=== PATIENT | female | born 1985 | race Caucasian/White ===

== ENCOUNTER → 2023-02-13 | Outpatient (CLI) | payer OTHER ==
--- NOTE | 2023-02-20 15:42 | Diagnostic Imaging Report ---
INDICATION: anatomy survey. TECHNIQUE: Multiple real-time grayscale images were obtained over the gravid uterus. COMPARISON: None FINDINGS: The cervix measures approximately 7 cm in length. Twin gestation is present and there is an intervening membrane. LELA is normal at 18.3 cm. Anterior placenta with no previa. Fetus A: Variable presentation. Heart rate is 152 bpm. anatomy survey was performed and the following structures are normal: Four-chamber heart, stomach, kidneys, umbilical cord insertion, urinary bladder, cerebral ventricle, lips/nose, spine, right ventricular outflow tract, bilateral lower extremities, left ventricular outflow tract. Fetus B: Breech presentation. Heart rate is 152 bpm. anatomy survey was performed and the following structures are normal: Cerebral ventricles, cerebellum, cisterna magna, lips/nose, kidneys, umbilical cord insertion, stomach, four-chamber heart, right ventricular outflow tract, profile. The spine was suboptimally evaluated due to positioning. Biometrical measurements for baby A: Biparietal 5.21 cm, age 21 weeks 6 days. Head circumference 19.10 cm, age 21 weeks 3 days. Abdominal circumference 15.92 cm, age 21 weeks 1 days. Femur length 3.45 cm, age 21 weeks 0 days. Sonographic estimate age: 21 weeks 3 days. Sonographic estimated date of delivery: 06/23/2023. Estimated Weight: 394 gm (+/- 58 gm). LMP percentile: 31%. heart rate: 152 beats per minute. number: 1 of 2. IMPRESSION: 1. Live twin gestation. 2. The majority of the anatomy was seen and normal. The spine of fetus B was not well seen due to positioning. Dictated by: Dictated on workstation # [id number]
== END ==
LOC: RAD 13:09
PROVIDERS: ATTEND Obstetrics & Gynecology
DX: Z34.02 Encounter for supervision of normal first pregnancy, second trimester (principal); Z3A.21 21 weeks gestation of pregnancy
CPT/HCPCS: 76805; 76810

== ENCOUNTER → 2023-05-04 | Outpatient (CLI) | payer OTHER ==
[2023-05-04 12:12] LABS: URINE CREATININE FOR RATIO 29 MG/DL (30-125); URINE PROTEIN FOR RATIO ONLY < 6 MG/DL (6-12)
== END ==
LOC: LABNPT 11:50
PROVIDERS: ATTEND Obstetrics & Gynecology
DX: O13.9 Gestational [pregnancy-induced] hypertension without significant proteinuria, unspecified trimester (principal); Z3A.00 Weeks of gestation of pregnancy not specified
CPT/HCPCS: 82570; 84156

== ENCOUNTER 2023-05-18 09:59 | Outpatient (CLI) | payer OTHER ==
[2023-05-18 09:58] VITALS: BP 137/86
[2023-05-18 10:13] VITALS: BP 132/85
[2023-05-18 10:26] LABS: BASOPHILS % (AUTO) 0 % (0-10); EOSINOPHILS % (AUTO) 0 % (0-10); HEMATOCRIT 39 % (35-52); HEMOGLOBIN 13.8 g/dL (11.5-16.0); LYMPHOCYTES # (AUTO) 1.9 10^3/uL (1.0-4.0); LYMPHOCYTES % (AUTO) 18 % (12-44); MEAN CORPUSCULAR HEMOGLOBIN 32 pg (25-34); MEAN CORPUSCULAR HGB CONC 35 g/dL (32-36); MEAN CORPUSCULAR VOLUME 89 fL (80-99); MONOCYTES # (AUTO) 0.8 10^3/uL (0.0-1.0); MONOCYTES % (AUTO) 7 % (0-12); NEUTROPHILS % (AUTO) 74 % (42-75); PLATELET COUNT 227 10^3/uL (130-400); WHITE BLOOD COUNT 10.8 10^3/uL (4.3-11.0)
[2023-05-18] MEDS ORDERED: BETAMETHASONE Acetate/Na Phosphate 6 MG/ML INJ IM SCH (10:30)
[2023-05-18 10:44] LABS: ALBUMIN 3.1 GM/DL (3.2-4.5); BILIRUBIN,TOTAL 0.9 MG/DL (0.1-1.0); CALCIUM 8.8 MG/DL (8.5-10.1); CREATININE SERUM 0.63 MG/DL (0.60-1.30); POTASSIUM 3.7 MMOL/L (3.6-5.0); TOTAL PROTEIN 6.1 GM/DL (6.4-8.2); URIC ACID 6.3 MG/DL (2.6-7.2)
--- NOTE | 2023-05-22 08:05 | Physician Query-Final Dx ---
DAO,05/22/23 0804: Clinic Account Progress/Dx Physician Query: Please give diagnosis Please include # weeks gestation Date of Service May 18, 2023 at 09:59 MARIA ESTHER NOLASCO DO 05/22/23 0810: Clinic Account Progress/Dx DIAGNOSIS: Diagnosis 35 week twin PING DAO,SepMay 22, 2023 08:04 MARIA ESTHER NOLASCO DO May 22, 2023 08:10
== END 2023-05-18 10:20 | disposition home or self-care (01) ==
LOC: WSo 09:59 → LDRP 09:59 → WSo 10:20
PROVIDERS: ATTEND Obstetrics & Gynecology
DX: O16.3 Unspecified maternal hypertension, third trimester (principal); Z3A.15 15 weeks gestation of pregnancy
CPT/HCPCS: 80053; 82570; 84156; 84550; 85025; 96372; G0463; 36415; 99211

== ENCOUNTER 2023-05-19 11:35 | Outpatient (CLI) | payer OTHER ==
[2023-05-20] MEDS ORDERED: BETAMETHASONE Acetate/Na Phosphate 6 MG/ML INJ IM SCH (11:25)
== END 2023-05-19 12:25 | disposition home or self-care (01) ==
LOC: WSo 11:35
PROVIDERS: ATTEND Family Medicine
DX: Z36.84 Encounter for antenatal screening for fetal lung maturity (principal)
CPT/HCPCS: 96372

== ENCOUNTER → 2023-05-22 | Outpatient (CLI) | payer OTHER | LOC: LABNPT 13:45 | PROVIDERS: ATTEND Obstetrics & Gynecology | DX: O13.9 Gestational [pregnancy-induced] hypertension without significant proteinuria, unspecified trimester (principal); Z3A.00 Weeks of gestation of pregnancy not specified | CPT/HCPCS: 82570; 84156 ==

== ENCOUNTER 2023-05-28 05:29 | Outpatient (CLI) | payer OTHER ==
[~2023-05-28] VITALS: Ht 165.1 cm; Wt 93.2 kg
[2023-05-28] MEDS ORDERED: FERR-84 PO (10:04)
[2023-05-28] MEDS ORDERED: PNV-9 PO (10:04)
== END 2023-05-28 10:38 | disposition home or self-care (01) ==
LOC: PREOP 05:29
PROVIDERS: ATTEND Obstetrics & Gynecology
DX: Z01.818 Encounter for other preprocedural examination (principal)

== ENCOUNTER → 2023-06-01 | Outpatient (CLI) | payer OTHER ==
[~2023-06-01] MED LIST: ACHD5005 PO; AMLO-251 PO; DOCU100C37 PO; DOXA4TAB2 PO; FERR-84 PO; IBUP-844 PO; LABE200T10 PO; METO200T48 PO; MTP100TCR PO; PNV-9 PO
== END ==
LOC: LABNPT 09:48
PROVIDERS: ATTEND Obstetrics & Gynecology
DX: O13.9 Gestational [pregnancy-induced] hypertension without significant proteinuria, unspecified trimester (principal); Z3A.00 Weeks of gestation of pregnancy not specified
CPT/HCPCS: 82570; 84156

== ENCOUNTER 2023-06-04 10:35 | Inpatient (IN) | payer OTHER ==
[2023-06-04] VITALS (14 sets, daily range): BP systolic 124–184; BP diastolic 62–108
[~2023-06-04] VITALS: Ht 165 cm; Wt 88.7 kg
[~2023-06-04 10:35] MED LIST changes: -ACHD5005 PO; -AMLO-251 PO; -DOCU100C37 PO; -DOXA4TAB2 PO; -IBUP-844 PO; -LABE200T10 PO; -METO200T48 PO; -MTP100TCR PO
--- OUTSIDE RECORDS SUMMARY | 2023-06-04 10:40 | XMS REPORT | CCD ---
Author Author Danielle Arana APRN Organization JOSEPH Luis DO [facility] Address [address] [place] [address] Phone Care Team Providers Care Chief Wheelage Clerk Name Role Phone Joseph Benjamin D.O. PP Unavail able CCM Unavailable Summary Purpose Interface Exchange Insurance Providers Payer name Policy type / Coverage type Covered republican ID Effective Begin Date Effective End Date CIG[employer] Commercial Insurance [id number] Unk nown Family history Grandmother Diagnosis Age At Onset Uterine Cancer Unknown Mother Diagnosis Age At Onset Diabetes mellitus Type 2 Unknown Hypertension Unknown Social History Social History Element Codes Description Effec tive Dates Marital status Unknown Single 01/30/2012 Employment Unknown Currently employed [address]: 414938011 Has never s moked or chewed tobacco 01/30/2012 Allergies, Adverse Reactions, Alerts Substance Reaction Codes Entered Date Inactivated Date Status * NO KNOWN FOOD ALLERGIES Unknown 10/09/2019 No Inactive Date Active * NO KNOWN DRUG ALLERGIES Unknown 01/30/2012 No Inactive Date Active * NO KNOWN ENVIRONMENTAL ALLERGIES Unknown 10/09/2019 No Inactive Date Active Problems Condition Codes Effective Dates Condition St atus Encounter for general adult medical examination without abnormal findings ICD-10: Z00.00 ICD-9: V70.0 10/26/2014 Active Primary dysmenorrhea ICD-10: N94.4 ICD-9: 625.3 12/18/2012 Active Encounter for gynecological examination (general) (routine) without abnormal findings ICD-10: Z01.419 ICD-9: V72.31 10/17/2017 Active Encounter for removal of sutures ICD-10: Z48.02 ICD-9: V58.32 05/07/2017 Active Melanocytic nevi of trunk ICD-10: D22.5 ICD-9: 216.5 10/16/2016 Active ROUTINE GYNE EXAM ICD-9: V72.31 10/26/2014 Active ROUTINE MEDICAL EXAM ICD-9: V70.0 10/26/2014 Active Dysmenorrhea ICD-9: 625.3 12/18/2012 Active Medications Medication Codes Instructions Start Date Stop Date Status Fill Instructions Sprintec (28) 0.25 mg-35 mcg tablet RxNorm: 837699 Take 1 tablet by mouth once daily 2 11/27/19 22 Active multivitamin tablet RxNorm: 1 Tablet(s) Oral QD 1 No Stop Date Active Sprintec (28) 0.25 mg-35 mcg tablet RxNorm: 813223 Take 1 tablet by mouth once daily 1 10/11/19 21 Inactive Sprintec (28) 0.25 mg-35 mcg tablet RxNorm: 341549 Take 1 tablet by mouth once daily 1 10/10/19 21 Inactive Sprintec (28) 0.25 mg-35 mcg tablet RxNorm: 090000 TAKE ONE TABLET BY MOUTH ONCE DAILY 0 10/21/19 20 Inactive Sprintec (28) 0.25 mg-35 mcg tablet RxNorm: 706716 TAKE ONE TABLET BY MOUTH ONCE DAILY 9 10/08/19 20 Inactive Sprintec (28) 0.25 mg-35 mcg tablet RxNorm: 836028 1 Tablet(s) PO QD 8 10/15/19 19 Inactive Sprintec (28) 0.25 mg-35 mcg tablet RxNorm: 098706 1 Tablet(s) PO QD 7 10/16/19 18 Inactive Sprintec (28) 0.25 mg-35 mcg tablet RxNorm: 146589 1 Tablet(s) PO QD 6 10/30/19 17 Inactive Sprintec (28) 0.25 mg-35 mcg tablet RxNorm: 595900 1 Tablet(s) PO QD 5 10/13/19 16 Inactive Sprintec (28) 0.25 mg-35 mcg tablet RxNorm: 083943 1 Tablet(s) PO QD 4 10/25/19 15 Inactive Sprintec (28) 0.25 mg-35 mcg tablet RxNorm: 221384 1 Tablet(s) PO QD 4 12/04/19 14 Inactive Sprintec (28) 0.25 mg-35 mcg tablet RxNorm: 226002 1 Tablet(s) PO QD 3 11/19/19 14 Inactive Sprintec (28) 0.25 mg-35 mcg tablet RxNorm: 677451 1 Tablet(s) PO QD 2 12/18/19 13 Inactive Medication Administered No Medication Administered data Immunizations Vaccine Codes Dose Date Status Covid-19 CVX: 207 08/05/2021 Influenza CVX: 141 06/22/2021 Procedures Procedure Codes Date SPECIMEN HANDLING OFFICE-LAB CPT-4: 38814 SPECIMEN HANDLING OFFICE-LAB CPT-4: 17452 EXC TR-EXT B9+TRACE 0.5 CM< CPT-4: 20778 04/26 Vital Signs Date Vital Reason For Visit Reason For Visit Effective Dates Notes well woman exam (18-39 years) 11/08/2021 well woman exam (18-39 years) 10/11/2020 well woman exam (18-39 years) 10/09/2019 An nual Wellness--no complaints well woman exam (18-39 years) 10/09/2018 well woman exam (18-39 years) 10/17/2017 follow up 05/07/2017 Suture Removal t o Right Lower Back mole check 04/26/2017 well woman exam (18-39 years) 10/16/2016 well woman exam (18-39 years) 10/14/2015 well woman exam (18-39 years) 10/26/2014 Salvatore gonzalez does not perform self-breast exams- needs Sprintec refilled well woman exam (18-39 years) 12/04/2013 well woman exam (18-39 years) 12/18/2012 well woman exam (18-39 years) 01/30/2012 Encounters Encounter Performer Location Codes Date (21851) PREV VISIT EST AGE 18-39 Diagnosis: Encounter for general adult medical examination without abnormal findings[ICD10: Z00.00] Diagnosis: Primary dysmenorrhea[ICD10: N94.4] Joseph BENJAMIN DO [facility] CPT-4: 75766 11/08/2021 ([id number]) PREV VISIT EST AGE 18-39 Diagnosis: Encounter for general adult medical examination without abnormal findings[ICD10: Z00.00] Diagnosis: Encounter for gynecological examination (general) (routine) without abnormal findings[ICD10: Z01.419] Joseph BENJAMIN DO [facility] CPT-4: 00206 10/11/2020 ([id number]) PREV VISIT EST AGE 18-39 Diagnosis: Encounter for general adult medical examination without abnormal findings[ICD10: Z00.00] Diagnosis: Primary dysmenorrhea[ICD10: N94.4] Joseph BENJAMIN DO [facility] CPT-4: 39271 10/09/2019 ([id number]) PREV VISIT EST AGE 18-39 Diagnosis: Encounter for general adult medical examination without abnormal findings[ICD10: Z00.00] Diagnosis: Primary dysmenorrhea[ICD10: N94.4] Joseph BENJAMIN [facility] CPT-4: 50120 10/09/2018 ([id number]) PREV VISIT EST AGE 18-39 Diagnosis: Encounter for general adult medical examination without abnormal findings[ICD10: Z00.00] Diagnosis: Encounter for gynecological examination (general) (routine) without abnormal findings[ICD10: Z01.419] Diagnosis: Primary dysmenorrhea[ICD10: N94.4] Joseph BENJAMIN Vyykn CPT-4: 81175 10/17/2017 ([id number]) PREV VISIT EST AGE 18-39 Diagnosis: Encounter for general adult medical examination without abnormal findings[ICD10: Z00.00] Diagnosis: Primary dysmenorrhea[ICD10: N94.4] Diagnosis: Melanocytic nevi of trunk[ICD10: D22.5] Joseph BENJAMIN DO [facility] CPT-4: 89337 10/16/2016 ([id number]) PREV VISIT EST AGE 18-39 Diagnosis: Encounter for general adult medical examination without abnormal findings[ICD10: Z00.00] Diagnosis: Primary dysmenorrhea[ICD10: N94.4] Joseph BENJAMIN DO [facility] CPT-4: 41361 10/14/2015 ([id number]) PREV VISIT EST AGE 18-39 Diagnosis: ROUTINE GYNE EXAM[ICD9: V72.31] Diagnosis: ROUTINE MEDICAL EXAM[ICD9: V70.0] Lynda BENJAMIN DO [facility] CPT-4: 20475 10/26/2014 ([id number]) OFFICE/OUTPATIENT VISIT EST Diagnosis: DYSMENORRHEA[ICD9: 625.3] Joseph BENJAMIN DO [facility] CPT-4: 81135 12/04/2013 ([id number]) PREV VISIT EST AGE 18-39 Diagnosis: ROUTINE MEDICAL EXAM[ICD9: V70.0] Diagnosis: ROUTINE GYNE EXAM[ICD9: V72.31] Diagnosis: Dysmenorrhea[ICD9: 625.3] Joseph BENJAMIN DO [facility] CPT-4: 57110 12/18/2012 ([id number]) SPECIMEN HANDLING OFFICE-LAB Diagnosis: [ICD9: ] Diagnosis: [ICD9: ] Diagnosis: [ICD9: ] Joseph BENJAMIN DO [facility] CPT-4: 53841 12/18/2012 ([id number]) PREV VISIT NEW AGE 18-39 Diagnosis: ROUTINE MEDICAL EXAM[ICD9: V70.0] Diagnosis: Visit for routine ob/gyn nurse exam[ICD9: V72.31] Itzel Sumit JOSEPH BENJAMIN DO [facility] CPT-4: 38236 01/30/2012 ([id number]) SPECIMEN HANDLING Diagnosis: [ICD9: ] Diagnosis: [ICD9: ] Itzel Arana JOSEPH BENJAMIN DO [facility] CPT-4: 92296 01/30/2012 Plan of Care Planned Activity Notes Codes Status Date Visit Diagnosis Plan: Encounter for general adult medical examination without abnormal findings Discussion: Mediterranean diet Combination of cardio and weight bearing exercise ICD-9 : V70.0 ICD-10 : Z00.00 11/08/2021 Visit Diagnosis Plan: Primary dysmenorrhea Discussion: Stable on Sprintec Did discuss that they are thinking about possibly this fall so recommended establish with OB ICD-9 : 625.3 ICD-10 : N94.4 11/08/2021 Visit Diagnosis Plan: Encounter for general adult medical examination without abnormal findings Discussion: Mediterranean diet Combination of cardio and weight bearing exercise Lab from March 2020 discussed--will have full repeat in March of this year through work ICD-9 : V70.0 ICD-10 : Z00.00 10/11/2020 Visit Diagnosis Plan: Encounter for gynecological examination (general) (routine) without abnormal findings Discussion: Pap with HPV cotesting done Stable on Sprintec ICD-9 : V72.31 ICD-10 : Z01.419 10/11/2020 Appointment: Joseph Benjamin WPtel: [facility] [address] Annual Well Visit 10/11/2020 Visit Diagnosis Plan: Encounter for general adult medical examination without abnormal findings Discussion: Mediterranean diet Combination of cardio and weight bearing exercise Gets yearly lab at work ICD-9 : V70.0 ICD-10 : Z00.00 10/09/2019 Visit Diagnosis Plan: Primary dysmenorrhea Discussion: Stable on sprintec ICD-9 : 625.3 ICD-10 : N94.4 10/09/2019 Appointment: Joseph Benjamin WPtel: [address] [place] [address] Annual Well Visit 10/09/2019 Patient Education: Sprintec (28)- [employer] Coupon [id number] [email or web address] Completed 10/09/2019 Visit Diagnosis Plan: Encounter for general adult medical examination without abnormal findings Discussion: On PNV Mediterranean diet Resume exercise--combo of cardio/weight bearing exercise Recommend updated TdaP ICD-9 : V70.0 ICD-10 : Z00.00 10/09/2018 Appointment: Joseph Benjamin WPtel: [facility] [place] [address] [place] Ref# [id number] for annual and [phone] Annual Well Visit 10/09/2018 Visit Diagnosis Plan: Encounter for general adult medical examination without abnormal findings Discussion: Increase Exercise Discussed compression socks for work since sits ICD-9 : V70.0 ICD-10 : Z00.00 10/17/2017 Visit Diagnosis Plan: Encounter for gynecological examination (general) (routine) without abnormal findings Discussion: Pap done Add PNV ICD-9 : V72.31 ICD-10 : Z01.419 10/17/2017 Appointment: Joseph Benjamin WPtel: [address] [place], [place] [phone] Annual Well Visit 10/17/2017 Patient Education: Patient Medication Summary Completed 10/17/2017 Visit Diagnosis Plan: Encounter for removal of sutures Discussion: Right Lower Back Cleansed with Alcohol and 2 Sutures removed with clean technique using scissors and pickups. Steri strips applied. Patient tolerated well. Site without redness/swelling. Patient informed to call with any signs/symptoms of infection. Patient verbalizes understanding Follow Up: As needed ICD-9 : V58.32 ICD-10 : Z48.02 05/07/2017 Appointment: Joesph Benjamin WPtel: [address] [place], [place] [phone] Suture Removal 05/07/2017 Patient Education: Patient Medication Summary Completed 05/07/2017 Visit Diagnosis Plan: Melanocytic nevi of trunk Discussion: Excised with 4-0 punch biopsy--sutures x2 then steri strips and opsite Return in 10 days for suture removal ICD-9 : 216.5 ICD-10 : D22.5 04/26/2017 Appointment: Joseph Benjamin WPtel: [address] [place], [place] [phone] 8/9 lm~sl ACUTE ILLNESS 04/26/2017 Patient Education: Patient Medication Summary Completed 04/26/2017 Visit Diagnosis Plan: Primary dysmenorrhea Discussion: Continue sprintec ICD-9 : 625.3 ICD-10 : N94.4 10/16/2016 Visit Diagnosis Plan: Melanocytic nevi of trunk Discussion: Return for removal ICD-9 : 216.5 ICD-10 : D22.5 10/16/2016 Appointment: Joseph Benjamin WPtel: [address] [place], [place] [phone] 10/13 lm`sl 10/16 confirmed `sl Annual Well Visit 10/16/2016 Patient Education: Patient Medication Summary Completed 10/16/2016 Visit Plan: Continue sprintec Will plan on Pap smear next year Gets lab done in March at work 10/14/2015 Appointment: Joseph Benjamin WPtel: [address] [place], [place] [phone] 10/13/15 appt confirmed cn Annual Well Visit 10/14/2015 Patient Education: Patient Medication Summary Completed 10/14/2015 Appointment: Lynda Mahoney WPtel: [address] [place] [address] Annual Well Visit 10/26/2014 Patient Education: Patient Medication Summary Completed 10/26/2014 Patient Education: ConsumerCare - Antibiotics, Analgesics 18+, Oral Contraceptives F 18+ Completed 10/26/2014 Visit Plan: Continue sprintec 12/04/2013 Appointment: Joseph Benjamin WPtel: [address] [place], [place] [phone] PAP 12/04/2013 Patient Education: Patient Medication Summary Completed 12/04/2013 Visit Plan: Pap done Continue Sprintec 12/18/2012 Appointment: Joseph Benjamin WPtel: [address] [place], [place] [phone] PAP 12/18/2012 Patient Education: Patient Medication Summary Completed 12/18/2012 Appointment: Itzel Arana WPtel: [address] [place], [place] [phone] NEW PATIENT 01/30/2012 Patient Education: Patient Medication Summary Completed 01/30/2012 Instructions Comment Date . Continue sprintec Will plan on Pap smear next year Gets lab done in March at work 10/14/2015 . Continue sprintec 12/04/2013 . Pap done Continue Sprintec 12/18/2012 Medical Equipment No Medical Equipment data Advance Directives No Advance Directive data
--- OUTSIDE RECORDS SUMMARY | 2023-06-04 10:40 | XMS REPORT | CCD ---
Author Author Danielle Arana APRN Organization JOSEPH Luis DO [facility] Address [address] [place] [address] Phone Care Team Providers Care Advertising Solicitor Name Role Phone Joseph Benjamin D.O. PP Unavail able CCM Unavailable Summary Purpose Interface Exchange Insurance Providers Payer name Policy type / Coverage type Covered republican ID Effective Begin Date Effective End Date CIGNA Commercial Insurance [id number] Unk nown Family history Grandmother Diagnosis Age At Onset Uterine Cancer Unknown Mother Diagnosis Age At Onset Diabetes mellitus Type 2 Unknown Hypertension Unknown Social History Social History Element Codes Description Effec tive Dates Marital status Unknown Single 01/30/2012 Employment Unknown Currently employed [address]: 952802510 Has never s moked or chewed tobacco [...] general adult medical examination without abnormal findings ICD-9: V70.0 ICD-10: Z00.00 10/26/2014 Active Encounter for gynecological examination (general) (routine) without abnormal findings ICD-9: V72.31 ICD-10: Z01.419 10/17/2017 Active Primary dysmenorrhea ICD-9: 625.3 ICD-10: N94.4 12/18/2012 Active Encounter for removal of sutures ICD-9: V58.32 ICD-10: Z48.02 05/07/2017 Active Melanocytic nevi of trunk ICD-9: 216.5 ICD-10: D22.5 10/16/2016 Active ROUTINE GYNE EXAM ICD-9: V72.31 10/26/2014 Active ROUTINE MEDICAL EXAM ICD-9: V70.0 10/26/2014 Active Dysmenorrhea ICD-9: 625.3 12/18/2012 Active Medications Medication Codes Instructions Start Date Stop Date Status Fill Instructions Sprintec (28) 0.25 mg-35 mcg tablet RxNorm: 343637 Take 1 tablet by mouth once daily 1 09/12/20 21 Active multivitamin tablet RxNorm: 1 Tablet(s) Oral QD 1 No Stop Date Active Sprintec (28) 0.25 mg-35 mcg tablet RxNorm: 929050 Take 1 tablet by mouth once daily 1 10/10/19 21 Inactive Sprintec (28) 0.25 mg-35 mcg tablet RxNorm: 877631 TAKE ONE TABLET BY MOUTH ONCE DAILY 0 10/21/19 20 Inactive Sprintec (28) 0.25 mg-35 mcg tablet RxNorm: 838962 TAKE ONE TABLET BY MOUTH ONCE DAILY 9 10/08/19 20 Inactive Sprintec (28) 0.25 mg-35 mcg tablet RxNorm: 106864 1 Tablet(s) PO QD 8 10/15/19 19 Inactive Sprintec (28) 0.25 mg-35 mcg tablet RxNorm: 660062 1 Tablet(s) PO QD 7 10/16/19 18 Inactive Sprintec (28) 0.25 mg-35 mcg tablet RxNorm: 950056 1 Tablet(s) PO QD 6 10/30/19 17 Inactive Sprintec (28) 0.25 mg-35 mcg tablet RxNorm: 502452 1 Tablet(s) PO QD 5 10/13/19 16 Inactive Sprintec (28) 0.25 mg-35 mcg tablet RxNorm: 572880 1 Tablet(s) PO QD 4 10/25/19 15 Inactive Sprintec (28) 0.25 mg-35 mcg tablet RxNorm: 496886 1 Tablet(s) PO QD 4 12/04/19 14 Inactive Sprintec (28) 0.25 mg-35 mcg tablet RxNorm: 569821 1 Tablet(s) PO QD 3 11/19/19 14 Inactive Sprintec (28) 0.25 mg-35 mcg tablet RxNorm: 614273 1 Tablet(s) PO QD 2 12/18/19 13 Inactive Medication Administered No Medication Administered data Procedures Procedure Codes Date SPECIMEN HANDLING OFFICE-LAB CPT-4: 13518 SPECIMEN HANDLING OFFICE-LAB CPT-4: 99480 EXC TR-EXT B9+TRACE 0.5 CM< CPT-4: 33373 04/26 Vital Signs Date Vital Reason For Visit Reason For Visit Effective Dates Notes well woman exam (18-39 years) 10/11/2020 well [...] 01/30/2012 Encounters Encounter Performer Location Codes Date (02132) PREV VISIT EST AGE 18-39 Diagnosis: Encounter for general adult medical examination without abnormal findings[ICD10: Z00.00] Diagnosis: Encounter for gynecological examination (general) (routine) without abnormal findings[ICD10: Z01.419] Joseph BENJAMIN [employer] CPT-4: 89760 10/11/2020 ([id number]) PREV VISIT EST AGE 18-39 Diagnosis: Encounter for general adult medical examination without abnormal findings[ICD10: Z00.00] Diagnosis: Primary dysmenorrhea[ICD10: N94.4] Joseph BENJAMIN [employer] CPT-4: 39656 10/09/2019 ([id number]) PREV VISIT EST AGE 18-39 Diagnosis: Encounter for general adult medical examination without abnormal findings[ICD10: Z00.00] Diagnosis: Primary dysmenorrhea[ICD10: N94.4] Joseph BENJAMIN DO [employer] CPT-4: 63011 10/09/2018 ([id number]) PREV VISIT EST AGE 18-39 Diagnosis: Encounter for general adult medical examination without abnormal findings[ICD10: Z00.00] Diagnosis: Encounter for gynecological examination (general) (routine) without abnormal findings[ICD10: Z01.419] Diagnosis: Primary dysmenorrhea[ICD10: N94.4] Joseph BENJAMIN DO [employer] CPT-4: 92991 10/17/2017 ([id number]) PREV VISIT EST AGE 18-39 Diagnosis: Encounter for general adult medical examination without abnormal findings[ICD10: Z00.00] Diagnosis: Primary dysmenorrhea[ICD10: N94.4] Diagnosis: Melanocytic nevi of trunk[ICD10: D22.5] Joseph BENJAMIN DO [employer] CPT-4: 31584 10/16/2016 ([id number]) PREV VISIT EST AGE 18-39 Diagnosis: Encounter for general adult medical examination without abnormal findings[ICD10: Z00.00] Diagnosis: Primary dysmenorrhea[ICD10: N94.4] Joseph BENJAMIN DO [employer] CPT-4: 63310 10/14/2015 ([id number]) PREV VISIT EST AGE 18-39 Diagnosis: ROUTINE GYNE EXAM[ICD9: V72.31] Diagnosis: ROUTINE MEDICAL EXAM[ICD9: V70.0] Lynda Mahoney JOSEPH BENJAMIN DO [employer] CPT-4: 42814 10/26/2014 ([id number]) OFFICE/OUTPATIENT VISIT EST Diagnosis: DYSMENORRHEA[ICD9: 625.3] Joseph BENJAMIN DO [employer] CPT-4: 99704 12/04/2013 ([id number]) PREV VISIT EST AGE 18-39 Diagnosis: ROUTINE MEDICAL EXAM[ICD9: V70.0] Diagnosis: ROUTINE GYNE EXAM[ICD9: V72.31] Diagnosis: Dysmenorrhea[ICD9: 625.3] Joseph Dannynisreenlita BENJAMIN DO [employer] CPT-4: 27766 12/18/2012 ([id number]) SPECIMEN HANDLING OFFICE-LAB Diagnosis: [ICD9: ] Diagnosis: [ICD9: ] Diagnosis: [ICD9: ] Joseph BENJAMIN DO [employer] CPT-4: 29156 12/18/2012 ([id number]) PREV VISIT NEW AGE 18-39 Diagnosis: ROUTINE MEDICAL EXAM[ICD9: V70.0] Diagnosis: Visit for routine communications executive exam[ICD9: V72.31] Itzel BENJAMIN DO [employer] CPT-4: 06438 01/30/2012 ([id number]) SPECIMEN HANDLING Diagnosis: [ICD9: ] Diagnosis: [ICD9: ] Itzel BENJAMIN DO [employer] CPT-4: 33913 01/30/2012 Plan of Care Planned Activity Notes [...] ICD-9 : V72.31 ICD-10 : Z01.419 10/11/2020 Visit Diagnosis Plan: Encounter for general adult medical examination without abnormal findings Discussion: Mediterranean diet Combination of cardio and weight bearing exercise Gets yearly lab at work ICD-9 : V70.0 ICD-10 : Z00.00 10/09/2019 Visit Diagnosis Plan: Primary dysmenorrhea Discussion: Stable on sprintec ICD-9 : 625.3 ICD-10 : N94.4 10/09/2019 Appointment: [facility] [phone] [facility] [facility] Visit 10/09/2019 Patient Education: Sprintec (28)- OptimizeRX Coupon [id number] https://www.[employer]. com/samplemd/resource s/getResource/61/cf7c [email or web address]-[email or web address]-tylq-0 [email or web address].pdf Completed 10/09/2019 Visit Diagnosis Plan: Encounter for general adult medical examination without abnormal findings Discussion: On PNV Mediterranean diet Resume exercise--combo of cardio/weight bearing exercise Recommend updated TdaP ICD-9 : V70.0 ICD-10 : Z00.00 10/09/2018 Appointment: Joseph Benjamin WPtel: [facility] Ref# [phone] for annual and will be covered per [employer]. [phone] Annual Well Visit 10/09/2018 Visit Diagnosis Plan: Encounter for general adult medical examination without abnormal findings Discussion: Increase Exercise Discussed compression socks for work since sits ICD-9 : V70.0 ICD-10 : Z00.00 10/17/2017 Visit Diagnosis Plan: Encounter for gynecological examination (general) (routine) without abnormal findings Discussion: Pap done Add PNV ICD-9 : V72.31 ICD-10 : Z01.419 10/17/2017 Appointment: Joseph Benjamin WPtel: [address] [place] [address] Annual Well Visit 10/17/2017 Patient Education: Patient [...] : V58.32 ICD-10 : Z48.02 05/07/2017 Appointment: Joseph Benjamin WPtel: [facility] Suture Removal 05/07/2017 Patient Education: Patient Medication Summary Completed 05/07/2017 Visit Diagnosis Plan: Melanocytic nevi of trunk Discussion: Excised with 4-0 punch biopsy--sutures x2 then steri strips and opsite Return in 10 days for suture removal ICD-9 : 216.5 ICD-10 : D22.5 04/26/2017 Appointment: Joseph Benjamin WPtel: [address] [place] [address] 8/9 lm~sl ACUTE ILLNESS 04/26/2017 Patient Education: Patient Medication Summary Completed 04/26/2017 Visit Diagnosis Plan: Primary dysmenorrhea Discussion: Continue sprintec ICD-9 : 625.3 ICD-10 : N94.4 10/16/2016 Visit Diagnosis Plan: Melanocytic nevi of trunk Discussion: Return for removal ICD-9 : 216.5 ICD-10 : D22.5 10/16/2016 Appointment: Joseph Benjamin WPtel: [address] [place] [address] 10/13 lm`sl 10/16 confirmed `sl Annual Well Visit 10/16/2016 Patient Education: Patient Medication Summary Completed 10/16/2016 Visit Plan: Continue sprintec Will plan on Pap smear next year Gets lab done in March at work 10/14/2015 Appointment: Joseph Benjamin WPtel: [address] [place] [address] 10/13/15 appt confirmed cn Annual Well Visit 10/14/2015 Patient Education: Patient Medication Summary Completed 10/14/2015 Appointment: Lynda Mahoney WPtel: [address] [place] [address] Annual Well Visit 10/26/2014 Patient Education: Patient Medication Summary Completed 10/26/2014 Patient Education: ConsumerCare - Antibiotics, Analgesics 18+, Oral Contraceptives F 18+ Completed 10/26/2014 Visit Plan: Continue sprintec 12/04/2013 Appointment: Joseph Benjamin WPtel: [address] [place] [address] US PAP 12/04/2013 Patient Education: Patient Medication Summary Completed 12/04/2013 Visit Plan: Pap done Continue Sprintec 12/18/2012 App[facility]ment: [facility] [phone] [facility] [facility] 12/18/2012 Patient Education: Patient Medication Summary Completed 12/18/2012 Appointment: Itzel [facility] [phone] [facility] NEW PATIENT 01/30/2012 Patient Education: Patient Medication Summary Completed 01/30/2012 Instructions Comment . Continue sprintec Will plan on Pap smear next year Gets lab done in March at work . Continue sprintec . Pap done Continue Sprintec Medical Equipment No Medical Equipment data Advance Directives No Advance Directive data
--- OUTSIDE RECORDS SUMMARY | 2023-06-04 10:40 | XMS REPORT | CCD ---
Author Author Danielle Arana APRN Organization JOSEPH uLis DO [facility] Address [address] [place] [address] Phone Care Team Providers Care Potato Loader Name Role Phone Joseph Benjamin D.O. PP Unavail able CCM Unavailable Summary Purpose Interface Exchange Insurance Providers Payer name Policy type / Coverage type Covered republican ID Effective Begin Date Effective End Date CIGNA Commercial Insurance [id number] Unk nown Family history Grandmother Diagnosis Age At Onset Uterine Cancer Unknown Mother Diagnosis Age At Onset Diabetes mellitus Type 2 Unknown Hypertension Unknown Social History Social History Element Codes Description Effec tive Dates Marital status Unknown Single 01/30/2012 Employment Unknown Currently employed [address]: 955491386 Has never s moked or chewed tobacco 01/30/2012 Allergies, Adverse Reactions, Alerts Substance Reaction Codes Entered Date Inactivated Date Status * NO KNOWN FOOD ALLERGIES Unknown 10/09/2019 No Inactive Date Active * NO KNOWN DRUG ALLERGIES Unknown 01/30/2012 No Inactive Date Active * NO KNOWN ENVIRONMENTAL ALLERGIES Unknown 10/09/2019 No Inactive Date Active Problems Condition Codes Effective Dates Condition St atus Unknown 10/24/2022 Active Missed menses ICD-10: N92.6 ICD-9: 626.4 10/24/2022 Active with 5 completed w eeks gestation ICD-10: Z3A.01 ICD-9: V22.2 10/24/2022 Active Encounter for general adult medical examination without [...] Sprintec (28) 0.25 mg-35 mcg tablet RxNorm: 587203 Take 1 tablet by mouth once daily 2 10/23/19 23 Inactive Sprintec (28) 0.25 mg-35 mcg tablet RxNorm: 658084 Take 1 tablet by mouth once daily 2 11/16/19 22 Inactive Sprintec (28) 0.25 mg-35 mcg tablet RxNorm: 722139 Take 1 tablet by mouth once daily 2 10/30/19 22 Inactive multivitamin tablet RxNorm: 1 Tablet(s) Oral QD 1 No Stop Date Active Sprintec (28) 0.25 mg-35 mcg tablet RxNorm: 951246 Take 1 tablet by mouth once daily 1 10/11/19 21 Inactive Sprintec (28) 0.25 mg-35 mcg tablet RxNorm: 537881 Take 1 tablet by mouth once daily 1 10/10/19 21 Inactive Sprintec (28) 0.25 mg-35 mcg tablet RxNorm: 477641 TAKE ONE TABLET BY MOUTH ONCE DAILY 0 10/21/19 20 Inactive Sprintec (28) 0.25 mg-35 mcg tablet RxNorm: 482923 TAKE ONE TABLET BY MOUTH ONCE DAILY 9 10/08/19 20 Inactive Sprintec (28) 0.25 mg-35 mcg tablet RxNorm: 083510 1 Tablet(s) PO QD 8 10/15/19 19 Inactive Sprintec (28) 0.25 mg-35 mcg tablet RxNorm: 139232 1 Tablet(s) PO QD 7 10/16/19 18 Inactive Sprintec (28) 0.25 mg-35 mcg tablet RxNorm: 568344 1 Tablet(s) PO QD 6 10/30/19 17 Inactive Sprintec (28) 0.25 mg-35 mcg tablet RxNorm: 859302 1 Tablet(s) PO QD 5 10/13/19 16 Inactive Sprintec (28) 0.25 mg-35 mcg tablet RxNorm: 870970 1 Tablet(s) PO QD 4 10/25/19 15 Inactive Sprintec (28) 0.25 mg-35 mcg tablet RxNorm: 139027 1 Tablet(s) PO QD 4 12/04/19 14 Inactive Sprintec (28) 0.25 mg-35 mcg tablet RxNorm: 885119 1 Tablet(s) PO QD 3 11/19/19 14 Inactive Sprintec (28) 0.25 mg-35 mcg tablet RxNorm: 346392 1 Tablet(s) PO QD 2 12/18/19 13 Inactive Medication Administered No Medication Administered data Immunizations Vaccine Codes Dose Date Status Covid-19 (Adult) CVX: 217 08/17/2022 Covid-19 CVX: 207 08/05/2021 Influenza CVX: 141 06/22/2021 Procedures Procedure Codes Date URINE TEST CPT-4: 48429 10/24/2022 SPECIMEN HANDLING OFFICE-LAB CPT-4: 94192 SPECIMEN HANDLING OFFICE-LAB CPT-4: 59705 EXC TR-EXT B9+TRACE 0.5 CM< CPT-4: 58394 04/26 Vital Signs Date Vital Reason For Visit Reason For Visit Effective Dates Notes 10/24/2022 LMP 09/17/2022, positive home test well woman exam (18-39 years) 11/08/2021 well [...] refilled well woman exam (18-39 years) 12/04/2013 menstrual irregularity 12/04/2013 well woman exam (18-39 years) 12/18/2012 well woman exam (18-39 years) 01/30/2012 Encounters Encounter Performer Location Location Address Codes Date (66450) OFFICE/OUTPATIENT VISIT EST Diagnosis: with 5 completed weeks gestation[ICD10: Z3A.01] Diagnosis: Missed menses[ICD10: N92.6] Joseph BENJAMIN iogyn [address] [place] [phone] CPT-4: 88417 3 (73018) PREV VISIT EST AGE 18-39 Diagnosis: Encounter for general adult medical examination without abnormal findings[ICD10: Z00.00] Diagnosis: Primary dysmenorrhea[ICD10: N94.4] Joseph BENJAMIN iogyn [address] [place] [phone] CPT-4: 91985 2 (89350) PREV VISIT EST AGE 18-39 Diagnosis: Encounter for general adult medical examination without abnormal findings[ICD10: Z00.00] Diagnosis: Encounter for gynecological examination (general) (routine) without abnormal findings[ICD10: Z01.419] Joseph BENJAMIN iogyn [address] [place] [address] CPT-4: 22394 1 (07049) PREV VISIT EST AGE 18-39 Diagnosis: Encounter for general adult medical examination without abnormal findings[ICD10: Z00.00] Diagnosis: Primary dysmenorrhea[ICD10: N94.4] Joseph BENJAMIN iogyn [address] [place] [phone] CPT-4: 24507 0 (82953) PREV VISIT EST AGE 18-39 Diagnosis: Encounter for general adult medical examination without abnormal findings[ICD10: Z00.00] Diagnosis: Primary dysmenorrhea[ICD10: N94.4] Joseph BENJAMIN [address] [address] CPT-4: 57229 9 (15897) PREV VISIT EST AGE 18-39 Diagnosis: Encounter for general adult medical examination without abnormal findings[ICD10: Z00.00] Diagnosis: Encounter for gynecological examination (general) (routine) without abnormal findings[ICD10: Z01.419] Diagnosis: Primary dysmenorrhea[ICD10: N94.4] Joseph BENJAMIN [address] [address] CPT-4: 94566 8 (18028) PREV VISIT EST AGE 18-39 Diagnosis: Encounter for general adult medical examination without abnormal findings[ICD10: Z00.00] Diagnosis: Primary dysmenorrhea[ICD10: N94.4] Diagnosis: Melanocytic nevi of trunk[ICD10: D22.5] Joseph BENJAMIN DO [address] [address] CPT-4: 67474 7 (06066) PREV VISIT EST AGE 18-39 Diagnosis: Encounter for general adult medical examination without abnormal findings[ICD10: Z00.00] Diagnosis: Primary dysmenorrhea[ICD10: N94.4] Joseph BENJAMIN DO [address] [address] CPT-4: 14282 6 (22341) PREV VISIT EST AGE 18-39 Diagnosis: ROUTINE GYNE EXAM[ICD9: V72.31] Diagnosis: ROUTINE MEDICAL EXAM[ICD9: V70.0] Lynda Mahoney JOSEPH BENJAMIN [address] [address] CPT-4: 29881 5 ([id number]) OFFICE/OUTPATIENT VISIT EST Diagnosis: DYSMENORRHEA[ICD9: 625.3] Joseph BENJAMIN DO [facility] [address] [place] [phone] CPT-4: 77743 4 (68592) PREV VISIT EST AGE 18-39 Diagnosis: ROUTINE MEDICAL EXAM[ICD9: V70.0] Diagnosis: ROUTINE GYNE EXAM[ICD9: V72.31] Diagnosis: Dysmenorrhea[ICD9: 625.3] Joseph BENJAMIN DO [facility] [address] [place] [phone] CPT-4: 35438 3 (23644) SPECIMEN HANDLING OFFICE-LAB Diagnosis: [ICD9: ] Diagnosis: [ICD9: ] Diagnosis: [ICD9: ] Joseph BENJAMIN DO [employer] [address] [place] [phone] CPT-4: 93956 3 (78814) PREV VISIT NEW AGE 18-39 Diagnosis: ROUTINE MEDICAL EXAM[ICD9: V70.0] Diagnosis: Visit for routine credit report checker exam[ICD9: V72.31] Itzel BENJAMIN DO [facility] [address] [place] [address] CPT-4: 00329 2 (99866) SPECIMEN HANDLING Diagnosis: [ICD9: ] Diagnosis: [ICD9: ] Itzel BENJAMIN DO [facility] [address] [place] [phone] CPT-4: 89786 2 Plan of Care Planned Activity Notes Codes Status Date Visit Diagnosis Plan: with 5 completed weeks gestation Discussion: On a PNV Discussed no NSAIDs, no alcohol, meds to avoid Can use TUMs prn Can use tylenol prn Referral to OB Due date June 25 by dates ICD-9 : V22.2 ICD-10 : Z3A.01 10/24/2022 Visit Diagnosis Plan: Encounter for general adult medical examination without abnormal findings Discussion: Mediterranean diet Combination of cardio and weight bearing exercise ICD-9 : V70.0 ICD-10 : Z00.00 11/08/2021 Visit Diagnosis Plan: Primary dysmenorrhea Discussion: Stable on Sprintec Did discuss that they are thinking about possibly this fall so recommended establish with OB ICD-9 : 625.3 ICD-10 : N94.4 11/08/2021 Appointment: Joseph Benjamin WPtel: [address] [place] [address] Annual Well Visit 11/08/2021 Visit Diagnosis Plan: Encounter for general [...] : Z01.419 10/11/2020 Appointment: Joseph Benjamin WPtel: [address] [place] [address] Annual Well Visit 10/11/2020 Visit Diagnosis Plan: Encounter for general adult medical examination without abnormal findings Discussion: Mediterranean diet Combination of cardio and weight bearing exercise Gets yearly lab at work ICD-9 : V70.0 ICD-10 : Z00.00 10/09/2019 Visit Diagnosis Plan: Primary dysmenorrhea Discussion: Stable on sprintec ICD-9 : 625.3 ICD-10 : N94.4 10/09/2019 Appointment: Joseph Benjamin WPtel: [address] [place], [place] [address] Annual Well Visit 10/09/2019 Patient Education: Sprintec (28)- OptimizeRX Coupon [id number] [email or web address].copygram/[employer]/resource s/getResource/61/cf7c [email or web address].pdf Completed 10/09/2019 Visit Diagnosis Plan: Encounter for general adult medical examination without abnormal findings Discussion: On PNV Mediterranean diet Resume exercise--combo of cardio/weight bearing exercise Recommend updated TdaP ICD-9 : V70.0 ICD-10 : Z00.00 10/09/2018 Appointment: Joseph Benjamin WPtel: [address] [facility] Ref# [phone] for annual and will be covered per [employer]. [phone] Annual Well Visit 10/09/2018 Visit Diagnosis Plan: Encounter for general adult medical examination without abnormal findings Discussion: Increase Exercise Discussed compression socks for work since sits ICD-9 : V70.0 ICD-10 : Z00.00 10/17/2017 Visit Diagnosis Plan: Encounter for gynecological examination (general) (routine) without abnormal findings Discussion: Pap done Add PNV ICD-9 : V72.31 ICD-10 : Z01.419 10/17/2017 Appointment: [facility] [address] [facility] Annual Well Visit 10/17/2017 Patient Education: Patient [...] : Z48.02 05/07/2017 Appointment: [facility]el[facility] [address] [facility] Suture Removal 05/07/2017 Patient Education: Patient Medication Summary Completed 05/07/2017 Visit Diagnosis Plan: Melanocytic nevi of trunk Discussion: Excised with 4-0 punch biopsy--sutures x2 then steri strips and opsite Return in 10 days for suture removal ICD-9 : 216.5 ICD-10 : D22.5 04/26/2017 Appointment: Joseph Benjamin WPtel: [address] [phone] 04/25 lm~sl ACUTE ILLNESS 04/26/2017 Patient Education: Patient Medication Summary Completed 04/26/2017 Visit Diagnosis Plan: Primary dysmenorrhea Discussion: Continue sprintec ICD-9 : 625.3 ICD-10 : N94.4 10/16/2016 Visit Diagnosis Plan: Melanocytic nevi of trunk Discussion: Return for removal ICD-9 : 216.5 ICD-10 : D22.5 10/16/2016 Appointment: Joseph Benjamin WPtel: [address] [place], [place] [phone] 10/13 lm`sl 10/16 confirmed `sl Annual Well Visit 10/16/2016 Patient Education: Patient Medication Summary Completed 10/16/2016 Visit Plan: Continue sprintec Will plan on Pap smear next year Gets lab done in March at work 10/14/2015 Appointment: Joseph Benjamin WPtel: [address] [place], [place] [phone] 10/13/15 appt confirmed cn Annual Well Visit 10/14/2015 Patient Education: Patient Medication Summary Completed 10/14/2015 Appointment: Lynda Mahoney WPtel: [address] [place] [address] Annual Well Visit 10/26/2014 Patient Education: Patient Medication Summary Completed 10/26/2014 Patient Education: ConsumerCare - Antibiotics, Analgesics 18+, Oral Contraceptives F 18+ Completed 10/26/2014 Visit Plan: Continue sprintec 12/04/2013 Appointment: Joseph Benjamin WPtel: [address] [place], [place] [phone] US PAP 12/04/2013 Patient Education: Patient Medication Summary Completed 12/04/2013 Visit Plan: Pap done Continue Sprintec 12/18/2012 Appointment: [facility] [phone] [facility] PAP 12/18/2012 Patient Education: Patient Medication Summary Completed 12/18/2012 Appointment: Itzel [facility] [phone] [facility] NEW PATIENT 01/30/2012 Patient Education: Patient Medication Summary Completed 01/30/2012 Instructions Comment Date . Continue sprintec Will plan on Pap smear next year Gets lab done in March at work 10/14/2015 . Continue sprintec 12/04/2013 . Pap done Continue Sprintec 12/18/2012 Medical Equipment No Medical Equipment data Advance Directives No Advance Directive data
--- OUTSIDE RECORDS SUMMARY | 2023-06-04 10:40 | XMS REPORT | CCD ---
Author Author Danielle Arnaa APRN Organization JOSEPH Luis DO [facility] Address [address] [place] [address] Phone Care Team Providers Care Certified Nurse Midwife Name Role Phone Joseph Benjamin D.O. PP Unavail able CCM Unavailable Summary Purpose Interface Exchange Insurance Providers Payer name Policy type / Coverage type Covered green party ID Effective Begin Date Effective End Date CIGNA Commercial Insurance [id number] Unk nown Family history Grandmother Diagnosis Age At Onset Uterine Cancer Unknown Mother Diagnosis Age At Onset Diabetes mellitus Type 2 Unknown Hypertension Unknown Social History Social History Element Codes Description Effec tive Dates Marital status Unknown Single 01/30/2012 Employment Unknown Currently employed [address]: 840948700 Has never s moked or chewed tobacco [...] Sprintec (28) 0.25 mg-35 mcg tablet RxNorm: 363097 Take 1 tablet by mouth once daily 2 11/27/19 22 Active multivitamin tablet RxNorm: 1 Tablet(s) Oral QD 1 No Stop Date Active Sprintec (28) 0.25 mg-35 mcg tablet RxNorm: 014752 Take 1 tablet by mouth once daily 1 10/11/19 21 Inactive Sprintec (28) 0.25 mg-35 mcg tablet RxNorm: 142798 Take 1 tablet by mouth once daily 1 10/10/19 21 Inactive Sprintec (28) 0.25 mg-35 mcg tablet RxNorm: 914932 TAKE ONE TABLET BY MOUTH ONCE DAILY 0 10/21/19 20 Inactive Sprintec (28) 0.25 mg-35 mcg tablet RxNorm: 977849 TAKE ONE TABLET BY MOUTH ONCE DAILY 9 10/08/19 20 Inactive Sprintec (28) 0.25 mg-35 mcg tablet RxNorm: 812606 1 Tablet(s) PO QD 8 10/15/19 19 Inactive Sprintec (28) 0.25 mg-35 mcg tablet RxNorm: 472044 1 Tablet(s) PO QD 7 10/16/19 18 Inactive Sprintec (28) 0.25 mg-35 mcg tablet RxNorm: 202491 1 Tablet(s) PO QD 6 10/30/19 17 Inactive Sprintec (28) 0.25 mg-35 mcg tablet RxNorm: 768990 1 Tablet(s) PO QD 5 10/13/19 16 Inactive Sprintec (28) 0.25 mg-35 mcg tablet RxNorm: 509447 1 Tablet(s) PO QD 4 10/25/19 15 Inactive Sprintec (28) 0.25 mg-35 mcg tablet RxNorm: 783329 1 Tablet(s) PO QD 4 12/04/19 14 Inactive Sprintec (28) 0.25 mg-35 mcg tablet RxNorm: 230244 1 Tablet(s) PO QD 3 11/19/19 14 Inactive Sprintec (28) 0.25 mg-35 mcg tablet RxNorm: 792332 1 Tablet(s) PO QD 2 12/18/19 13 Inactive Medication Administered No Medication Administered data Immunizations Vaccine Codes Dose Date Status Covid-19 CVX: 207 08/05/2021 Influenza CVX: 141 06/22/2021 Procedures Procedure Codes Date SPECIMEN HANDLING OFFICE-LAB CPT-4: 83272 SPECIMEN HANDLING OFFICE-LAB CPT-4: 37634 EXC TR-EXT B9+TRACE 0.5 CM< CPT-4: 65308 04/26 Vital Signs Date Vital Reason For [...] 01/30/2012 Encounters Encounter Performer Location Codes Date (17240) PREV VISIT EST AGE 18-39 Diagnosis: Encounter for general adult medical examination without abnormal findings[ICD10: Z00.00] Diagnosis: Primary dysmenorrhea[ICD10: N94.4] Joseph BENJAMIN DO [facility] CPT-4: 99418 11/08/2021 ([id number]) PREV VISIT EST AGE 18-39 Diagnosis: Encounter for general adult medical examination without abnormal findings[ICD10: Z00.00] Diagnosis: Encounter for gynecological examination (general) (routine) without abnormal findings[ICD10: Z01.419] Joseph BENJAMIN DO [facility] CPT-4: 71781 10/11/2020 ([id number]) PREV VISIT EST AGE 18-39 Diagnosis: Encounter for general adult medical examination without abnormal findings[ICD10: Z00.00] Diagnosis: Primary dysmenorrhea[ICD10: N94.4] Joseph BENJAMIN DO [facility] CPT-4: 88270 10/09/2019 ([id number]) PREV VISIT EST AGE 18-39 Diagnosis: Encounter for general adult medical examination without abnormal findings[ICD10: Z00.00] Diagnosis: Primary dysmenorrhea[ICD10: N94.4] Joseph BENJAMIN [facility] CPT-4: 49023 10/09/2018 ([id number]) PREV VISIT EST AGE 18-39 Diagnosis: Encounter for general adult medical examination without abnormal findings[ICD10: Z00.00] Diagnosis: Encounter for gynecological examination (general) (routine) without abnormal findings[ICD10: Z01.419] Diagnosis: Primary dysmenorrhea[ICD10: N94.4] Joseph BENJAMIN [employer] CPT-4: 82100 10/17/2017 ([id number]) PREV VISIT EST AGE 18-39 Diagnosis: Encounter for general adult medical examination without abnormal findings[ICD10: Z00.00] Diagnosis: Primary dysmenorrhea[ICD10: N94.4] Diagnosis: Melanocytic nevi of trunk[ICD10: D22.5] Joseph BENJAMIN DO [facility] CPT-4: 72583 10/16/2016 ([id number]) PREV VISIT EST AGE 18-39 Diagnosis: Encounter for general adult medical examination without abnormal findings[ICD10: Z00.00] Diagnosis: Primary dysmenorrhea[ICD10: N94.4] Joseph BENJAMIN DO [facility] CPT-4: 80024 10/14/2015 ([id number]) PREV VISIT EST AGE 18-39 Diagnosis: ROUTINE GYNE EXAM[ICD9: V72.31] Diagnosis: ROUTINE MEDICAL EXAM[ICD9: V70.0] Lynda BENJAMIN DO [facility] CPT-4: 59335 10/26/2014 ([id number]) OFFICE/OUTPATIENT VISIT EST Diagnosis: DYSMENORRHEA[ICD9: 625.3] Joseph BENJAMIN DO [facility] CPT-4: 38470 12/04/2013 ([id number]) PREV VISIT EST AGE 18-39 Diagnosis: ROUTINE MEDICAL EXAM[ICD9: V70.0] Diagnosis: ROUTINE GYNE EXAM[ICD9: V72.31] Diagnosis: Dysmenorrhea[ICD9: 625.3] Joseph BENJAMIN DO [facility] CPT-4: 32521 12/18/2012 ([id number]) SPECIMEN HANDLING OFFICE-LAB Diagnosis: [ICD9: ] Diagnosis: [ICD9: ] Diagnosis: [ICD9: ] Joseph BENJAMIN DO [facility] CPT-4: 89975 12/18/2012 ([id number]) PREV VISIT NEW AGE 18-39 Diagnosis: ROUTINE MEDICAL EXAM[ICD9: V70.0] 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] Itzel Sumit JOSEPH BENJAMIN DO [facility] CPT-4: 23299 01/30/2012 ([id number]) SPECIMEN HANDLING Diagnosis: [ICD9: ] Diagnosis: [ICD9: ] Itzel Arana JOSEPH BENJAMIN DO [facility] CPT-4: 63722 01/30/2012 Plan of Care Planned Activity Notes [...] : Z01.419 10/11/2020 Appointment: Joseph Benjamin WPtel: [facility] [place] Annual Well Visit 10/11/2020 Visit Diagnosis Plan: Encounter for general adult medical examination without abnormal findings Discussion: Mediterranean diet Combination of cardio and weight bearing exercise Gets yearly lab at work ICD-9 : V70.0 ICD-10 : Z00.00 10/09/2019 Visit Diagnosis Plan: Primary dysmenorrhea Discussion: Stable on sprintec ICD-9 : 625.3 ICD-10 : N94.4 10/09/2019 Appointment: Joseph Benjamin WPtel: [address] [place] [address] Annual Well Visit 10/09/2019 Patient Education: Sprintec (28)- [employer] Coupon [id number] [email or web address]/[email or web address]/[email or web address].pdf Completed 10/09/2019 Visit Diagnosis Plan: Encounter for general adult medical examination without abnormal findings Discussion: On PNV Mediterranean diet Resume exercise--combo of cardio/weight bearing exercise Recommend updated TdaP ICD-9 : V70.0 ICD-10 : Z00.00 10/09/2018 Appointment: Joseph Benjamin WPtel: [facility] [place] [place] [address] [place] Ref# [id number] for annual and [facility] [phone] Annual Well Visit 10/09/2018 Visit Diagnosis Plan: Encounter for general adult medical examination without abnormal findings Discussion: Increase Exercise Discussed compression socks for work since sits ICD-9 : V70.0 ICD-10 : Z00.00 10/17/2017 Visit Diagnosis Plan: Encounter for gynecological examination (general) (routine) without abnormal findings Discussion: Pap done Add PNV ICD-9 : V72.31 ICD-10 : Z01.419 10/17/2017 Appointment: Joseph Benjamin WPtel: [address] [place], [place] [phone] Annual Well Visit 10/17/2017 Patient Education: Patient [...] : Z48.02 05/07/2017 Appointment: Joseph Benjamin WPtel: [address] [place], [place] [phone] Suture Removal 05/07/2017 Patient Education: Patient Medication Summary Completed 05/07/2017 Visit Diagnosis Plan: Melanocytic nevi of trunk Discussion: Excised with 4-0 punch biopsy--sutures x2 then steri strips and opsite Return in 10 days for suture removal ICD-9 : 216.5 ICD-10 : D22.5 04/26/2017 Appointment: Joseph Benjamin WPtel: [address] [place], [place] [phone] 8/9 lm~sl ACUTE ILLNESS 04/26/2017 Patient Education: Patient Medication Summary Completed 04/26/2017 Visit Diagnosis Plan: Primary dysmenorrhea Discussion: Continue sprintec ICD-9 : 625.3 ICD-10 : N94.4 10/16/2016 Visit Diagnosis Plan: Melanocytic nevi of trunk Discussion: Return for removal ICD-9 : 216.5 ICD-10 : D22.5 10/16/2016 Appointment: Joseph Benjamin WPtel: [address] [place], [place] [phone] 10/13 lm`sl 10/16 confirmed `sl Annual Well Visit 10/16/2016 Patient Education: Patient Medication Summary Completed 10/16/2016 Visit Plan: Continue sprintec Will plan on Pap smear next year Gets lab done in March at work 10/14/2015 Appointment: Joseph Benjamin WPtel: [address] [place], [place] [phone] 10/13/15 appt confirmed cn Annual Well Visit 10/14/2015 Patient Education: Patient Medication Summary Completed 10/14/2015 Appointment: Lynda Mahoney WPtel: [address] [place] [address] Annual Well Visit 10/26/2014 Patient Education: Patient Medication Summary Completed 10/26/2014 Patient Education: ConsumerCare - Antibiotics, Analgesics 18+, Oral Contraceptives F 18+ Completed 10/26/2014 Visit Plan: Continue sprintec 12/04/2013 Appointment: Joseph Benjamin WPtel: [address] [place], [place] [phone] PAP 12/04/2013 Patient Education: Patient Medication Summary Completed 12/04/2013 Visit Plan: Pap done Continue Sprintec 12/18/2012 Appointment: Joseph Benjamin WPtel: [address] [place], [place] [phone] PAP 12/18/2012 Patient Education: Patient Medication Summary Completed 12/18/2012 Appointment: Itzel Arana WPtel: [address] [place], [place] [phone] NEW PATIENT 01/30/2012 Patient Education: Patient Medication Summary Completed 01/30/2012 Instructions Comment Date . Continue sprintec Will plan on Pap smear next year Gets lab done in March at work 10/14/2015 . Continue sprintec 12/04/2013 . Pap done Continue Sprintec 12/18/2012 Medical Equipment No Medical Equipment data Advance Directives No Advance Directive data
--- OUTSIDE RECORDS SUMMARY | 2023-06-04 10:40 | XMS REPORT | CCD ---
Author Author Danielle Arana APRN Organization JOSEPH Luis DO [facility] Address [address] [place] [address] Phone Care Team Providers Care Airport Operations Duty Manager Name Role Phone Joseph Benjamin D.O. PP Unavail able CCM Unavailable Summary Purpose Interface Exchange Insurance Providers Payer name Policy type / Coverage type Covered libertarian ID Effective Begin Date Effective End Date CIGNA Commercial Insurance [id number] Unk nown Family history Grandmother Diagnosis Age At Onset Uterine Cancer Unknown Mother Diagnosis Age At Onset Diabetes mellitus Type 2 Unknown Hypertension Unknown Social History Social History Element Codes Description Effec tive Dates Marital status Unknown Single 01/30/2012 Employment Unknown Currently employed [address]: 987030572 Has never s moked or chewed tobacco [...] Sprintec (28) 0.25 mg-35 mcg tablet RxNorm: 052808 Take 1 tablet by mouth once daily 2 10/23/19 23 Inactive Sprintec (28) 0.25 mg-35 mcg tablet RxNorm: 148084 Take 1 tablet by mouth once daily 2 11/16/19 22 Inactive Sprintec (28) 0.25 mg-35 mcg tablet RxNorm: 646015 Take 1 tablet by mouth once daily 2 10/30/19 22 Inactive multivitamin tablet RxNorm: 1 Tablet(s) Oral QD 1 No Stop Date Active Sprintec (28) 0.25 mg-35 mcg tablet RxNorm: 138172 Take 1 tablet by mouth once daily 1 10/11/19 21 Inactive Sprintec (28) 0.25 mg-35 mcg tablet RxNorm: 468025 Take 1 tablet by mouth once daily 1 10/10/19 21 Inactive Sprintec (28) 0.25 mg-35 mcg tablet RxNorm: 043895 TAKE ONE TABLET BY MOUTH ONCE DAILY 0 10/21/19 20 Inactive Sprintec (28) 0.25 mg-35 mcg tablet RxNorm: 240123 TAKE ONE TABLET BY MOUTH ONCE DAILY 9 10/08/19 20 Inactive Sprintec (28) 0.25 mg-35 mcg tablet RxNorm: 150026 1 Tablet(s) PO QD 8 10/15/19 19 Inactive Sprintec (28) 0.25 mg-35 mcg tablet RxNorm: 669684 1 Tablet(s) PO QD 7 10/16/19 18 Inactive Sprintec (28) 0.25 mg-35 mcg tablet RxNorm: 689167 1 Tablet(s) PO QD 6 10/30/19 17 Inactive Sprintec (28) 0.25 mg-35 mcg tablet RxNorm: 820448 1 Tablet(s) PO QD 5 10/13/19 16 Inactive Sprintec (28) 0.25 mg-35 mcg tablet RxNorm: 271836 1 Tablet(s) PO QD 4 10/25/19 15 Inactive Sprintec (28) 0.25 mg-35 mcg tablet RxNorm: 545855 1 Tablet(s) PO QD 4 12/04/19 14 Inactive Sprintec (28) 0.25 mg-35 mcg tablet RxNorm: 141768 1 Tablet(s) PO QD 3 11/19/19 14 Inactive Sprintec (28) 0.25 mg-35 mcg tablet RxNorm: 382339 1 Tablet(s) PO QD 2 12/18/19 13 Inactive Medication Administered No Medication Administered data Immunizations Vaccine Codes Dose Date Status Covid-19 (Adult) CVX: 217 08/17/2022 Covid-19 CVX: 207 08/05/2021 Influenza CVX: 141 06/22/2021 Procedures Procedure Codes Date URINE TEST CPT-4: 16901 10/24/2022 SPECIMEN HANDLING OFFICE-LAB CPT-4: 03872 SPECIMEN HANDLING OFFICE-LAB CPT-4: 93344 EXC TR-EXT B9+TRACE 0.5 CM< CPT-4: 89052 04/26 Vital Signs Date Vital Reason For [...] Encounter Performer Location Location Address Codes Date (12228) OFFICE/OUTPATIENT VISIT EST Diagnosis: with 5 completed weeks gestation[ICD10: Z3A.01] Diagnosis: Missed menses[ICD10: N92.6] Joseph BENJAMIN Tiragiu [address] [place] [address] CPT-4: 42418 3 (56417) PREV VISIT EST AGE 18-39 Diagnosis: Encounter for general adult medical examination without abnormal findings[ICD10: Z00.00] Diagnosis: Primary dysmenorrhea[ICD10: N94.4] Joseph BENJAMIN Tiragiu [address] [place] [address] CPT-4: 45329 2 (71114) PREV VISIT EST AGE 18-39 Diagnosis: Encounter for general adult medical examination without abnormal findings[ICD10: Z00.00] Diagnosis: Encounter for gynecological examination (general) (routine) without abnormal findings[ICD10: Z01.419] Joseph BENJAMIN Tiragiu [address] [place] [address] CPT-4: 35200 1 (96789) PREV VISIT EST AGE 18-39 Diagnosis: Encounter for general adult medical examination without abnormal findings[ICD10: Z00.00] Diagnosis: Primary dysmenorrhea[ICD10: N94.4] Joseph BENJAMIN Tiragiu [address] [place] [address] CPT-4: 81895 0 (16117) PREV VISIT EST AGE 18-39 Diagnosis: Encounter for general adult medical examination without abnormal findings[ICD10: Z00.00] Diagnosis: Primary dysmenorrhea[ICD10: N94.4] Joseph BENJAMIN [address] [address] CPT-4: 49497 9 (20171) PREV VISIT EST AGE 18-39 Diagnosis: Encounter for general adult medical examination without abnormal findings[ICD10: Z00.00] Diagnosis: Encounter for gynecological examination (general) (routine) without abnormal findings[ICD10: Z01.419] Diagnosis: Primary dysmenorrhea[ICD10: N94.4] Joseph BENJAMIN [address] [address] CPT-4: 52869 8 (33462) PREV VISIT EST AGE 18-39 Diagnosis: Encounter for general adult medical examination without abnormal findings[ICD10: Z00.00] Diagnosis: Primary dysmenorrhea[ICD10: N94.4] Diagnosis: Melanocytic nevi of trunk[ICD10: D22.5] Joseph BENJAMIN DO [address] [address] CPT-4: 92685 7 (42333) PREV VISIT EST AGE 18-39 Diagnosis: Encounter for general adult medical examination without abnormal findings[ICD10: Z00.00] Diagnosis: Primary dysmenorrhea[ICD10: N94.4] Joseph BENJAMIN DO [address] [address] CPT-4: 84004 6 (30651) PREV VISIT EST AGE 18-39 Diagnosis: ROUTINE GYNE EXAM[ICD9: V72.31] Diagnosis: ROUTINE MEDICAL EXAM[ICD9: V70.0] Lynda Mahoney JOSEPH BENJAMIN [address] [address] CPT-4: 11654 5 (48553) OFFICE/OUTPATIENT VISIT EST Diagnosis: DYSMENORRHEA[ICD9: 625.3] Joseph BENJAMIN DO [facility] [address] [place] [address] CPT-4: 77283 4 (37703) PREV VISIT EST AGE 18-39 Diagnosis: ROUTINE MEDICAL EXAM[ICD9: V70.0] Diagnosis: ROUTINE GYNE EXAM[ICD9: V72.31] Diagnosis: Dysmenorrhea[ICD9: 625.3] Joseph BENJAMIN DO [facility] [address] [place] [address] CPT-4: 87784 3 (09107) SPECIMEN HANDLING OFFICE-LAB Diagnosis: [ICD9: ] Diagnosis: [ICD9: ] Diagnosis: [ICD9: ] Joseph BENJAMIN DO [facility] [address] [place] [address] CPT-4: 24840 3 (57299) PREV VISIT NEW AGE 18-39 Diagnosis: ROUTINE MEDICAL EXAM[ICD9: V70.0] 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] Itzel BENJAMIN DO [facility] [address] [place] [address] CPT-4: 97580 2 (19585) SPECIMEN HANDLING Diagnosis: [ICD9: ] Diagnosis: [ICD9: ] Itzel BENJAMIN DO [facility] [address] [place] [address] CPT-4: 42064 2 Plan of Care Planned Activity Notes [...] : N94.4 11/08/2021 Appointment: Joseph Benjamin WPtel: [address] [place] [address] Annual Well Visit 11/08/2021 Visit Diagnosis Plan: [...] : Z01.419 10/11/2020 Appointment: Joseph Benjamin WPtel: [address] [place] [address] Annual Well Visit 10/11/2020 Visit Diagnosis Plan: Encounter for general adult medical examination without abnormal findings Discussion: Mediterranean diet Combination of cardio and weight bearing exercise Gets yearly lab at work ICD-9 : V70.0 ICD-10 : Z00.00 10/09/2019 Visit Diagnosis Plan: Primary dysmenorrhea Discussion: Stable on sprintec ICD-9 : 625.3 ICD-10 : N94.4 10/09/2019 Appointment: Joseph Benjamin WPtel: [address] [place], [place] [address] Annual Well Visit 10/09/2019 Patient Education: Sprintec (28)- [employer] Coupon [id number] [email or web address]/[email or web address] Completed 10/09/2019 Visit Diagnosis Plan: Encounter for general adult medical examination without abnormal findings Discussion: On PNV Mediterranean diet Resume exercise--combo of cardio/weight bearing exercise Recommend updated TdaP ICD-9 : V70.0 ICD-10 : Z00.00 10/09/2018 Appointment: Joseph Benjamin WPtel: [address] [phone] Ref# [id number] for annual and will be covered per [employer]. [phone] Annual Well Visit 10/09/2018 Visit Diagnosis Plan: Encounter for general adult medical examination without abnormal findings Discussion: Increase Exercise Discussed compression socks for work since sits ICD-9 : V70.0 ICD-10 : Z00.00 10/17/2017 Visit Diagnosis Plan: Encounter for gynecological examination (general) (routine) without abnormal findings Discussion: Pap done Add PNV ICD-9 : V72.31 ICD-10 : Z01.419 10/17/2017 [facility]ment: [facility] [address] [phone] Annual Well Visit 10/17/2017 Patient Education: Patient [...] Z48.02 05/07/2017 Appointment: [facility]el[facility] [address] [phone] Suture Removal 05/07/2017 Patient Education: Patient Medication Summary Completed 05/07/2017 Visit Diagnosis Plan: Melanocytic nevi of trunk Discussion: Excised with 4-0 punch biopsy--sutures x2 then steri strips and opsite Return in 10 days for suture removal ICD-9 : 216.5 ICD-10 : D22.5 04/26/2017 Appointment: Joseph Benjamin WPtel: [address] [phone] 04/25 lm~sl ACUTE ILLNESS 04/26/2017 Patient Education: Patient Medication Summary Completed 04/26/2017 Visit Diagnosis Plan: Primary dysmenorrhea Discussion: Continue sprintec ICD-9 : 625.3 ICD-10 : N94.4 10/16/2016 Visit Diagnosis Plan: Melanocytic nevi of trunk Discussion: Return for removal ICD-9 : 216.5 ICD-10 : D22.5 10/16/2016 Appointment: Joseph Benjamin WPtel: [address] [place], [place] [phone] 10/13 lm`sl 10/16 confirmed `sl Annual Well Visit 10/16/2016 Patient Education: Patient Medication Summary Completed 10/16/2016 Visit Plan: Continue sprintec Will plan on Pap smear next year Gets lab done in March at work 10/14/2015 Appointment: Joseph Benjamin WPtel: [address] [place] [phone] 10/13/15 appt confirmed cn Annual Well Visit 10/14/2015 Patient Education: Patient Medication Summary Completed 10/14/2015 Appointment: Lynda Mahoney WPtel: [address] [place], [place] [phone] Annual Well Visit 10/26/2014 Patient Education: Patient Medication Summary Completed 10/26/2014 Patient Education: ConsumerCare - Antibiotics, Analgesics 18+, Oral Contraceptives F 18+ Completed 10/26/2014 Visit Plan: Continue sprintec 12/04/2013 Appointment: Joseph Benjamin WPtel: [address] [place], [place] [phone] [place] PAP 12/04/2013 Patient Education: Patient Medication Summary Completed 12/04/2013 Visit Plan: Pap done Continue Sprintec 12/18/2012 Appointment: [facility] [address] [phone] PAP 12/18/2012 Patient Education: Patient Medication Summary Completed 12/18/2012 [facility]ment[facility] [address] [facility] [facility] 01/30/2012 Patient Education: Patient Medication Summary Completed 01/30/2012 Instructions Comment Date . Continue sprintec Will plan on Pap smear next year Gets lab done in March at work 10/14/2015 . Continue sprintec 12/04/2013 . Pap done Continue Sprintec 12/18/2012 Medical Equipment No Medical Equipment data Advance Directives No Advance Directive data
--- OUTSIDE RECORDS SUMMARY | 2023-06-04 10:40 | XMS REPORT | CCD ---
Author Author Danielle Arana APRN Organization JOSEPH Luis DO [facility] Address [address] [place] [address] Phone Care Team Providers Care Client Service Representative Name Role Phone Joseph Benjamin D.O. PP Unavail able CCM Unavailable Summary Purpose Interface Exchange Insurance Providers Payer name Policy type / Coverage type Covered green party ID Effective Begin Date Effective End Date CIGNA Commercial Insurance [id number] Unk nown Family history Grandmother Diagnosis Age At Onset Uterine Cancer Unknown Mother Diagnosis Age At Onset Diabetes mellitus Type 2 Unknown Hypertension Unknown Social History Social History Element Codes Description Effec tive Dates Marital status Unknown Single 01/30/2012 Employment Unknown Currently employed [address]: 894479251 Has never s moked or chewed tobacco [...] Sprintec (28) 0.25 mg-35 mcg tablet RxNorm: 243631 Take 1 tablet by mouth once daily 2 10/23/19 23 Inactive Sprintec (28) 0.25 mg-35 mcg tablet RxNorm: 748212 Take 1 tablet by mouth once daily 2 11/16/19 22 Inactive Sprintec (28) 0.25 mg-35 mcg tablet RxNorm: 214197 Take 1 tablet by mouth once daily 2 10/30/19 22 Inactive multivitamin tablet RxNorm: 1 Tablet(s) Oral QD 1 No Stop Date Active Sprintec (28) 0.25 mg-35 mcg tablet RxNorm: 348886 Take 1 tablet by mouth once daily 1 10/11/19 21 Inactive Sprintec (28) 0.25 mg-35 mcg tablet RxNorm: 866686 Take 1 tablet by mouth once daily 1 10/10/19 21 Inactive Sprintec (28) 0.25 mg-35 mcg tablet RxNorm: 934594 TAKE ONE TABLET BY MOUTH ONCE DAILY 0 10/21/19 20 Inactive Sprintec (28) 0.25 mg-35 mcg tablet RxNorm: 036757 TAKE ONE TABLET BY MOUTH ONCE DAILY 9 10/08/19 20 Inactive Sprintec (28) 0.25 mg-35 mcg tablet RxNorm: 351389 1 Tablet(s) PO QD 8 10/15/19 19 Inactive Sprintec (28) 0.25 mg-35 mcg tablet RxNorm: 438093 1 Tablet(s) PO QD 7 10/16/19 18 Inactive Sprintec (28) 0.25 mg-35 mcg tablet RxNorm: 494222 1 Tablet(s) PO QD 6 10/30/19 17 Inactive Sprintec (28) 0.25 mg-35 mcg tablet RxNorm: 704471 1 Tablet(s) PO QD 5 10/13/19 16 Inactive Sprintec (28) 0.25 mg-35 mcg tablet RxNorm: 753689 1 Tablet(s) PO QD 4 10/25/19 15 Inactive Sprintec (28) 0.25 mg-35 mcg tablet RxNorm: 753702 1 Tablet(s) PO QD 4 12/04/19 14 Inactive Sprintec (28) 0.25 mg-35 mcg tablet RxNorm: 324044 1 Tablet(s) PO QD 3 11/19/19 14 Inactive Sprintec (28) 0.25 mg-35 mcg tablet RxNorm: 822932 1 Tablet(s) PO QD 2 12/18/19 13 Inactive Medication Administered No Medication Administered data Immunizations Vaccine Codes Dose Date Status Covid-19 (Adult) CVX: 217 08/17/2022 Covid-19 CVX: 207 08/05/2021 Influenza CVX: 141 06/22/2021 Procedures Procedure Codes Date URINE TEST CPT-4: 22684 10/24/2022 SPECIMEN HANDLING OFFICE-LAB CPT-4: 09291 SPECIMEN HANDLING OFFICE-LAB CPT-4: 50562 EXC TR-EXT B9+TRACE 0.5 CM< CPT-4: 63251 04/26 Vital Signs Date Vital Reason For [...] Encounter Performer Location Location Address Codes Date (13703) OFFICE/OUTPATIENT VISIT EST Diagnosis: with 5 completed weeks gestation[ICD10: Z3A.01] Diagnosis: Missed menses[ICD10: N92.6] Joseph BENJAMIN Notizza [address] [place] [address] CPT-4: 69556 3 (91378) PREV VISIT EST AGE 18-39 Diagnosis: Encounter for general adult medical examination without abnormal findings[ICD10: Z00.00] Diagnosis: Primary dysmenorrhea[ICD10: N94.4] Joseph BENJAMIN Notizza [address] [place] [address] CPT-4: 51568 2 (24177) PREV VISIT EST AGE 18-39 Diagnosis: Encounter for general adult medical examination without abnormal findings[ICD10: Z00.00] Diagnosis: Encounter for gynecological examination (general) (routine) without abnormal findings[ICD10: Z01.419] Joseph BENJAMIN Notizza [address] [place] [address] CPT-4: 92409 1 (09417) PREV VISIT EST AGE 18-39 Diagnosis: Encounter for general adult medical examination without abnormal findings[ICD10: Z00.00] Diagnosis: Primary dysmenorrhea[ICD10: N94.4] Joseph BENJAMIN Notizza [address] [place] [address] CPT-4: 96709 0 (83110) PREV VISIT EST AGE 18-39 Diagnosis: Encounter for general adult medical examination without abnormal findings[ICD10: Z00.00] Diagnosis: Primary dysmenorrhea[ICD10: N94.4] Joseph BENJAMIN [address] [address] CPT-4: 86155 9 (87066) PREV VISIT EST AGE 18-39 Diagnosis: Encounter for general adult medical examination without abnormal findings[ICD10: Z00.00] Diagnosis: Encounter for gynecological examination (general) (routine) without abnormal findings[ICD10: Z01.419] Diagnosis: Primary dysmenorrhea[ICD10: N94.4] Joseph BENJAMIN [address] [address] CPT-4: 86911 8 (54128) PREV VISIT EST AGE 18-39 Diagnosis: Encounter for general adult medical examination without abnormal findings[ICD10: Z00.00] Diagnosis: Primary dysmenorrhea[ICD10: N94.4] Diagnosis: Melanocytic nevi of trunk[ICD10: D22.5] Joseph BENJAMIN DO [address] [address] CPT-4: 36258 7 (64899) PREV VISIT EST AGE 18-39 Diagnosis: Encounter for general adult medical examination without abnormal findings[ICD10: Z00.00] Diagnosis: Primary dysmenorrhea[ICD10: N94.4] Joseph BENJAMIN DO [address] [address] CPT-4: 73428 6 (58526) PREV VISIT EST AGE 18-39 Diagnosis: ROUTINE GYNE EXAM[ICD9: V72.31] Diagnosis: ROUTINE MEDICAL EXAM[ICD9: V70.0] Lynda Mahoney JOSEPH BENJAMIN [address] [address] CPT-4: 98333 5 (18556) OFFICE/OUTPATIENT VISIT EST Diagnosis: DYSMENORRHEA[ICD9: 625.3] Joseph BENJAMIN DO [facility] [address] [place] [address] CPT-4: 06239 4 (42560) PREV VISIT EST AGE 18-39 Diagnosis: ROUTINE MEDICAL EXAM[ICD9: V70.0] Diagnosis: ROUTINE GYNE EXAM[ICD9: V72.31] Diagnosis: Dysmenorrhea[ICD9: 625.3] Joseph BENJAMIN DO [facility] [address] [place] [address] CPT-4: 00977 3 (46854) SPECIMEN HANDLING OFFICE-LAB Diagnosis: [ICD9: ] Diagnosis: [ICD9: ] Diagnosis: [ICD9: ] Joseph BENJAMIN DO [facility] [address] [place] [address] CPT-4: 45456 3 (05268) PREV VISIT NEW AGE 18-39 Diagnosis: ROUTINE MEDICAL EXAM[ICD9: V70.0] Diagnosis: 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[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: V72.31] Itzel BENJAMIN DO [facility] [address] [place] [address] CPT-4: 33453 2 (76070) SPECIMEN HANDLING Diagnosis: [ICD9: ] Diagnosis: [ICD9: ] Itzel BENJAMIN DO [facility] [address] [place] [address] CPT-4: 25959 2 Plan of Care Planned Activity Notes [...] : N94.4 11/08/2021 Appointment: Joseph Benjamin WPtel: [address] [place] [address] Annual Well Visit 11/08/2021 Visit Diagnosis Plan: [...] : Z01.419 10/11/2020 Appointment: Joseph Benjamin WPtel: [address] [place] [address] Annual Well Visit 10/11/2020 Visit Diagnosis Plan: Encounter for general adult medical examination without abnormal findings Discussion: Mediterranean diet Combination of cardio and weight bearing exercise Gets yearly lab at work ICD-9 : V70.0 ICD-10 : Z00.00 10/09/2019 Visit Diagnosis Plan: Primary dysmenorrhea Discussion: Stable on sprintec ICD-9 : 625.3 ICD-10 : N94.4 10/09/2019 Appointment: Joseph Benjamin WPtel: [address] [place], [place] [address] Annual Well Visit 10/09/2019 Patient Education: Sprintec (28)- OptimizeRX Coupon [id number] [email or web address]/resource s/getResource/61/cf7c [email or web address].pdf Completed 10/09/2019 Visit Diagnosis Plan: Encounter for general adult medical examination without abnormal findings Discussion: On PNV Mediterranean diet Resume exercise--combo of cardio/weight bearing exercise Recommend updated TdaP ICD-9 : V70.0 ICD-10 : Z00.00 10/09/2018 Appointment: Joesph Benjamin WPtel: [address] [facility] Ref# [phone] for annual and will be covered per [email or web address]. [phone] Annual Well Visit 10/09/2018 Visit Diagnosis Plan: Encounter for general adult medical examination without abnormal findings Discussion: Increase Exercise Discussed compression socks for work since sits ICD-9 : V70.0 ICD-10 : Z00.00 10/17/2017 Visit Diagnosis Plan: Encounter for gynecological examination (general) (routine) without abnormal findings Discussion: Pap done Add PNV ICD-9 : V72.31 ICD-10 : Z01.419 10/17/2017 [facility]ment: [facility] [phone] [facility] Annual Well Visit 10/17/2017 Patient Education: Patient [...] Z48.02 05/07/2017 Appointment: [facility]el[facility] [address] [facility] Suture Removal 05/07/2017 Patient Education: Patient Medication Summary Completed 05/07/2017 Visit Diagnosis Plan: Melanocytic nevi of trunk Discussion: Excised with 4-0 punch biopsy--sutures x2 then steri strips and opsite Return in 10 days for suture removal ICD-9 : 216.5 ICD-10 : D22.5 04/26/2017 Appointment: Joseph Benjamin WPtel: [address] [facility] 04/25 lm~sl ACUTE ILLNESS 04/26/2017 Patient Education: Patient Medication Summary Completed 04/26/2017 Visit Diagnosis Plan: Primary dysmenorrhea Discussion: Continue sprintec ICD-9 : 625.3 ICD-10 : N94.4 10/16/2016 Visit Diagnosis Plan: Melanocytic nevi of trunk Discussion: Return for removal ICD-9 : 216.5 ICD-10 : D22.5 10/16/2016 Appointment: Joseph Benjamin WPtel: [address] [place], [place] [phone] 10/13 lm`sl 10/16 confirmed `sl Annual Well Visit 10/16/2016 Patient Education: Patient Medication Summary Completed 10/16/2016 Visit Plan: Continue sprintec Will plan on Pap smear next year Gets lab done in March at work 10/14/2015 Appointment: Joseph Benjamin WPtel: [address] [place], [place] [phone] 10/13/15 appt confirmed cn Annual Well Visit 10/14/2015 Patient Education: Patient Medication Summary Completed 10/14/2015 Appointment: Lynda Mahoney WPtel: [address] [place], [place] [id number] Annual Well Visit 10/26/2014 Patient Education: Patient Medication Summary Completed 10/26/2014 Patient Education: ConsumerCare - Antibiotics, Analgesics 18+, Oral Contraceptives F 18+ Completed 10/26/2014 Visit Plan: Continue sprintec 12/04/2013 Appointment: Joseph Benjamin WPtel: [address] [place], [place] [phone] US PAP 12/04/2013 Patient Education: Patient Medication Summary Completed 12/04/2013 Visit Plan: Pap done Continue Sprintec 12/18/2012 Appointment: [facility] [phone] [facility] PAP 12/18/2012 Patient Education: Patient Medication Summary Completed 12/18/2012 Appointment: Itzel Arana [facility]el[facility] [phone] [facility] NEW PATIENT 01/30/2012 Patient Education: Patient Medication Summary Completed 01/30/2012 Instructions Comment Date . Continue sprintec Will plan on Pap smear next year Gets lab done in March at work 10/14/2015 . Continue sprintec 12/04/2013 . Pap done Continue Sprintec 12/18/2012 Medical Equipment No Medical Equipment data Advance Directives No Advance Directive data
--- OUTSIDE RECORDS SUMMARY | 2023-06-04 10:40 | XMS REPORT | CCD ---
Author Author Danielle Arana APRN Organization JOSEPH Luis DO [facility] Address [address] [place] [address] Phone Care Team Providers Care Efficiency Expert Name Role Phone Joseph Benjamin D.O. PP Unavail able CCM Unavailable Summary Purpose Interface Exchange Insurance Providers Payer name Policy type / Coverage type Covered alliance party ID Effective Begin Date Effective End Date CIGNA Commercial Insurance [id number] Unk nown Family history Grandmother Diagnosis Age At Onset Uterine Cancer Unknown Mother Diagnosis Age At Onset Diabetes mellitus Type 2 Unknown Hypertension Unknown Social History Social History Element Codes Description Effec tive Dates Marital status Unknown Single 01/30/2012 Employment Unknown Currently employed [address]: [id number] Has never s moked or chewed tobacco [...] findings ICD-10: Z00.00 ICD-9: V70.0 10/26/2014 Active Encounter for gynecological examination (general) (routine) without abnormal findings ICD-10: Z01.419 ICD-9: V72.31 10/17/2017 Active Primary dysmenorrhea ICD-10: N94.4 ICD-9: 625.3 12/18/2012 Active Encounter for removal of sutures ICD-10: Z48.02 ICD-9: V58.32 05/07/2017 Active Melanocytic nevi of trunk ICD-10: D22.5 ICD-9: 216.5 10/16/2016 Active ROUTINE GYNE EXAM ICD-9: V72.31 10/26/2014 Active ROUTINE MEDICAL EXAM ICD-9: V70.0 10/26/2014 Active Dysmenorrhea ICD-9: 625.3 12/18/2012 Active Medications Medication Codes Instructions Start Date Stop Date Status Fill Instructions Sprintec (28) 0.25 mg-35 mcg tablet RxNorm: 538775 Take 1 tablet by mouth once daily 2 11/27/19 22 Active multivitamin tablet RxNorm: 1 Tablet(s) Oral QD 1 No Stop Date Active Sprintec (28) 0.25 mg-35 mcg tablet RxNorm: 884940 Take 1 tablet by mouth once daily 1 10/11/19 21 Inactive Sprintec (28) 0.25 mg-35 mcg tablet RxNorm: 452514 Take 1 tablet by mouth once daily 1 10/10/19 21 Inactive Sprintec (28) 0.25 mg-35 mcg tablet RxNorm: 014122 TAKE ONE TABLET BY MOUTH ONCE DAILY 0 10/21/19 20 Inactive Sprintec (28) 0.25 mg-35 mcg tablet RxNorm: 908068 TAKE ONE TABLET BY MOUTH ONCE DAILY 9 10/08/19 20 Inactive Sprintec (28) 0.25 mg-35 mcg tablet RxNorm: 042162 1 Tablet(s) PO QD 8 10/15/19 19 Inactive Sprintec (28) 0.25 mg-35 mcg tablet RxNorm: 054490 1 Tablet(s) PO QD 7 10/16/19 18 Inactive Sprintec (28) 0.25 mg-35 mcg tablet RxNorm: 068393 1 Tablet(s) PO QD 6 10/30/19 17 Inactive Sprintec (28) 0.25 mg-35 mcg tablet RxNorm: 001815 1 Tablet(s) PO QD 5 10/13/19 16 Inactive Sprintec (28) 0.25 mg-35 mcg tablet RxNorm: 767848 1 Tablet(s) PO QD 4 10/25/19 15 Inactive Sprintec (28) 0.25 mg-35 mcg tablet RxNorm: 202532 1 Tablet(s) PO QD 4 12/04/19 14 Inactive Sprintec (28) 0.25 mg-35 mcg tablet RxNorm: 117736 1 Tablet(s) PO QD 3 11/19/19 14 Inactive Sprintec (28) 0.25 mg-35 mcg tablet RxNorm: 651472 1 Tablet(s) PO QD 2 12/18/19 13 Inactive Medication Administered No Medication Administered data Immunizations Vaccine Codes Dose Date Status Covid-19 CVX: 207 08/05/2021 Influenza CVX: 141 06/22/2021 Procedures Procedure Codes Date SPECIMEN HANDLING OFFICE-LAB CPT-4: 19950 SPECIMEN HANDLING OFFICE-LAB CPT-4: 93381 EXC TR-EXT B9+TRACE 0.5 CM< CPT-4: 07822 04/26 Vital Signs Date Vital Reason For [...] 01/30/2012 Encounters Encounter Performer Location Codes Date (65941) PREV VISIT EST AGE 18-39 Diagnosis: Encounter for general adult medical examination without abnormal findings[ICD10: Z00.00] Diagnosis: Encounter for gynecological examination (general) (routine) without abnormal findings[ICD10: Z01.419] Joseph BENJAMIN DO [facility] CPT-4: 55355 10/11/2020 (29513) PREV VISIT EST AGE 18-39 Diagnosis: Encounter for general adult medical examination without abnormal findings[ICD10: Z00.00] Diagnosis: Primary dysmenorrhea[ICD10: N94.4] Joseph BENJAMIN DO [employer] CPT-4: 55004 10/09/2019 (18079) PREV VISIT EST AGE 18-39 Diagnosis: Encounter for general adult medical examination without abnormal findings[ICD10: Z00.00] Diagnosis: Primary dysmenorrhea[ICD10: N94.4] Joseph BENJAMIN DO [employer] CPT-4: 74835 10/09/2018 (36762) PREV VISIT EST AGE 18-39 Diagnosis: Encounter for general adult medical examination without abnormal findings[ICD10: Z00.00] Diagnosis: Encounter for gynecological examination (general) (routine) without abnormal findings[ICD10: Z01.419] Diagnosis: Primary dysmenorrhea[ICD10: N94.4] Joseph BENJAMIN DO [employer] CPT-4: 52093 10/17/2017 (58279) PREV VISIT EST AGE 18-39 Diagnosis: Encounter for general adult medical examination without abnormal findings[ICD10: Z00.00] Diagnosis: Primary dysmenorrhea[ICD10: N94.4] Diagnosis: Melanocytic nevi of trunk[ICD10: D22.5] Joseph BENJAMIN DO [employer] CPT-4: 26783 10/16/2016 (63796) PREV VISIT EST AGE 18-39 Diagnosis: Encounter for general adult medical examination without abnormal findings[ICD10: Z00.00] Diagnosis: Primary dysmenorrhea[ICD10: N94.4] Joseph BENJAMIN DO [employer] CPT-4: 33113 10/14/2015 (95824) PREV VISIT EST AGE 18-39 Diagnosis: ROUTINE GYNE EXAM[ICD9: V72.31] Diagnosis: ROUTINE MEDICAL EXAM[ICD9: V70.0] Lynda Mahoney JOSEPH BENJAMIN DO [employer] CPT-4: 61102 10/26/2014 (98205) OFFICE/OUTPATIENT VISIT EST Diagnosis: DYSMENORRHEA[ICD9: 625.3] Joseph BENJAMIN [employer] CPT-4: 23554 12/04/2013 (63147) PREV VISIT EST AGE 18-39 Diagnosis: ROUTINE MEDICAL EXAM[ICD9: V70.0] Diagnosis: ROUTINE GYNE EXAM[ICD9: V72.31] Diagnosis: Dysmenorrhea[ICD9: 625.3] Joseph BENJAMIN DO [employer] CPT-4: 08942 12/18/2012 (58508) SPECIMEN HANDLING OFFICE-LAB Diagnosis: [ICD9: ] Diagnosis: [ICD9: ] Diagnosis: [ICD9: ] Joseph BENJAMIN DO [employer] CPT-4: 80574 12/18/2012 (43135) PREV VISIT NEW AGE 18-39 Diagnosis: ROUTINE MEDICAL EXAM[ICD9: V70.0] Diagnosis: Visit for routine nurse obgyn exam[ICD9: V72.31] Itzel BENJAMIN [employer] CPT-4: 81334 01/30/2012 (35349) SPECIMEN HANDLING Diagnosis: [ICD9: ] Diagnosis: [ICD9: ] Itzel BENJAMIN DO [employer] CPT-4: 44296 01/30/2012 Plan of Care Planned Activity Notes [...] : Z01.419 10/11/2020 Appointment: [facility] [phone] [facility] [facility] Well Visit 10/11/2020 Visit Diagnosis Plan: Encounter for general adult medical examination without abnormal findings Discussion: Mediterranean diet Combination of cardio and weight bearing exercise Gets yearly lab at work ICD-9 : V70.0 ICD-10 : Z00.00 10/09/2019 Visit Diagnosis Plan: Primary dysmenorrhea Discussion: Stable on sprintec ICD-9 : 625.3 ICD-10 : N94.4 10/09/2019 Appointment: Joseph Benjamin WPtel: [address] [place] [address] Annual Well Visit 10/09/2019 Patient Education: Sprintec (28)- OptimizeRX Coupon [id number] [email or web address]/resource s/getResource/61/cf7c [email or web address].pdf Completed 10/09/2019 Visit Diagnosis Plan: Encounter for general adult medical examination without abnormal findings Discussion: On PNV Mediterranean diet Resume exercise--combo of cardio/weight bearing exercise Recommend updated TdaP ICD-9 : V70.0 ICD-10 : Z00.00 10/09/2018 Appointment: Joseph Benjamin WPtel: [address] [place] [address] Ref# [phone] for annual and will be covered per [employer]. [phone] Annual Well Visit 10/09/2018 Visit Diagnosis Plan: Encounter for general adult medical examination without abnormal findings Discussion: Increase Exercise Discussed compression socks for work since sits ICD-9 : V70.0 ICD-10 : Z00.00 10/17/2017 Visit Diagnosis Plan: Encounter for gynecological examination (general) (routine) without abnormal findings Discussion: Pap done Add PNV ICD-9 : V72.31 ICD-10 : Z01.419 10/17/2017 Appointment: Joseph Benjamin WPtel: [address] [place] [address] Annual Well Visit 10/17/2017 Patient Education: Patient [...] : Z48.02 05/07/2017 Appointment: Joseph Benjamin WPtel: [address] [place], [place] [phone] Suture Removal 05/07/2017 Patient Education: Patient Medication Summary Completed 05/07/2017 Visit Diagnosis Plan: Melanocytic nevi of trunk Discussion: Excised with 4-0 punch biopsy--sutures x2 then steri strips and opsite Return in 10 days for suture removal ICD-9 : 216.5 ICD-10 : D22.5 04/26/2017 Appointment: Joseph Benjamin WPtel: [address] [place], [place] [id number] 8/ lm~sl ACUTE ILLNESS 04/26/2017 Patient Education: Patient Medication Summary Completed 04/26/2017 Visit Diagnosis Plan: Primary dysmenorrhea Discussion: Continue sprintec ICD-9 : 625.3 ICD-10 : N94.4 10/16/2016 Visit Diagnosis Plan: Melanocytic nevi of trunk Discussion: Return for removal ICD-9 : 216.5 ICD-10 : D22.5 10/16/2016 Appointment: Joseph Benjamin WPtel: [address] [place], [place] [phone] 10/13 lm`sl 10/16 confirmed `sl Annual Well Visit 10/16/2016 Patient Education: Patient Medication Summary Completed 10/16/2016 Visit Plan: Continue sprintec Will plan on Pap smear next year Gets lab done in March at work 10/14/2015 Appointment: Joseph Benjamin WPtel: [address] [place], [place] [phone] 10/13/15 appt confirmed cn Annual Well Visit 10/14/2015 Patient Education: Patient Medication Summary Completed 10/14/2015 Appointment: Lynda Mahoney WPtel: [address] [place], [place] [phone] Annual Well Visit 10/26/2014 Patient Education: Patient Medication Summary Completed 10/26/2014 Patient Education: ConsumerCare - Antibiotics, Analgesics 18+, Oral Contraceptives F 18+ Completed 10/26/2014 Visit Plan: Continue sprintec 12/04/2013 Appointment: Joseph Benjamin WPtel: [address] [place], [place] [phone] PAP 12/04/2013 Patient Education: Patient Medication Summary Completed 12/04/2013 Visit Plan: Pap done Continue Sprintec 12/18/2012 Appointment: Joseph Benjamin WPtel: [address] [place], [place] [phone] PAP 12/18/2012 Patient Education: Patient Medication Summary Completed 12/18/2012 Appointment: Itzel Arana WPtel: [address] [place], [place] [phone] NEW PATIENT 01/30/2012 Patient Education: Patient Medication Summary Completed 01/30/2012 Instructions Comment Date . Continue sprintec Will plan on Pap smear next year Gets lab done in March at work 10/14/2015 . Continue sprintec 12/04/2013 . Pap done Continue Sprintec 12/18/2012 Medical Equipment No Medical Equipment data Advance Directives No Advance Directive data
--- OUTSIDE RECORDS SUMMARY | 2023-06-04 10:40 | XMS REPORT | CCD ---
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 PP Unavail able CCM Unavailable Summary Purpose Interface Exchange Insurance Providers Payer name Policy type / Coverage type Covered constitution party ID Effective Begin Date Effective End Date CIGNA Commercial Insurance [id number] Unk nown Family history Grandmother Diagnosis Age At Onset Uterine Cancer Unknown Mother Diagnosis Age At Onset Diabetes mellitus Type 2 Unknown Hypertension Unknown Social History Social History Element Codes Description Effec tive Dates Marital status Unknown Single 01/30/2012 Employment Unknown Currently employed [address]: 299799054 Has never s moked or chewed tobacco [...] Sprintec (28) 0.25 mg-35 mcg tablet RxNorm: 152602 Take 1 tablet by mouth once daily 2 10/23/19 23 Inactive Sprintec (28) 0.25 mg-35 mcg tablet RxNorm: 479370 Take 1 tablet by mouth once daily 2 11/16/19 22 Inactive Sprintec (28) 0.25 mg-35 mcg tablet RxNorm: 862604 Take 1 tablet by mouth once daily 2 10/30/19 22 Inactive multivitamin tablet RxNorm: 1 Tablet(s) Oral QD 1 No Stop Date Active Sprintec (28) 0.25 mg-35 mcg tablet RxNorm: 707034 Take 1 tablet by mouth once daily 1 10/11/19 21 Inactive Sprintec (28) 0.25 mg-35 mcg tablet RxNorm: 856714 Take 1 tablet by mouth once daily 1 10/10/19 21 Inactive Sprintec (28) 0.25 mg-35 mcg tablet RxNorm: 805048 TAKE ONE TABLET BY MOUTH ONCE DAILY 0 10/21/19 20 Inactive Sprintec (28) 0.25 mg-35 mcg tablet RxNorm: 869398 TAKE ONE TABLET BY MOUTH ONCE DAILY 9 10/08/19 20 Inactive Sprintec (28) 0.25 mg-35 mcg tablet RxNorm: 506297 1 Tablet(s) PO QD 8 10/15/19 19 Inactive Sprintec (28) 0.25 mg-35 mcg tablet RxNorm: 051319 1 Tablet(s) PO QD 7 10/16/19 18 Inactive Sprintec (28) 0.25 mg-35 mcg tablet RxNorm: 725493 1 Tablet(s) PO QD 6 10/30/19 17 Inactive Sprintec (28) 0.25 mg-35 mcg tablet RxNorm: 407695 1 Tablet(s) PO QD 5 10/13/19 16 Inactive Sprintec (28) 0.25 mg-35 mcg tablet RxNorm: 924504 1 Tablet(s) PO QD 4 10/25/19 15 Inactive Sprintec (28) 0.25 mg-35 mcg tablet RxNorm: 014277 1 Tablet(s) PO QD 4 12/04/19 14 Inactive Sprintec (28) 0.25 mg-35 mcg tablet RxNorm: 382973 1 Tablet(s) PO QD 3 11/19/19 14 Inactive Sprintec (28) 0.25 mg-35 mcg tablet RxNorm: 341660 1 Tablet(s) PO QD 2 12/18/19 13 Inactive Medication Administered No Medication Administered data Immunizations Vaccine Codes Dose Date Status Covid-19 (Adult) CVX: 217 08/17/2022 Covid-19 CVX: 207 08/05/2021 Influenza CVX: 141 06/22/2021 Procedures Procedure Codes Date URINE TEST CPT-4: 88619 10/24/2022 SPECIMEN HANDLING OFFICE-LAB CPT-4: 36354 SPECIMEN HANDLING OFFICE-LAB CPT-4: 04116 EXC TR-EXT B9+TRACE 0.5 CM< CPT-4: 16418 04/26 Vital Signs Date Vital Reason For [...] Encounter Performer Location Location Address Codes Date (13950) OFFICE/OUTPATIENT VISIT EST Diagnosis: with 5 completed weeks gestation[ICD10: Z3A.01] Diagnosis: Missed menses[ICD10: N92.6] Joseph BENJAMIN [employer] [address] [place] [phone] CPT-4: 06382 3 (12133) PREV VISIT EST AGE 18-39 Diagnosis: Encounter for general adult medical examination without abnormal findings[ICD10: Z00.00] Diagnosis: Primary dysmenorrhea[ICD10: N94.4] Joseph BENJAMIN [employer] [address] [place] [phone] CPT-4: 46898 2 (31266) PREV VISIT EST AGE 18-39 Diagnosis: Encounter for general adult medical examination without abnormal findings[ICD10: Z00.00] Diagnosis: Encounter for gynecological examination (general) (routine) without abnormal findings[ICD10: Z01.419] Joseph BENJAMIN [employer] [address] [place] [address] CPT-4: 32267 1 (56345) PREV VISIT EST AGE 18-39 Diagnosis: Encounter for general adult medical examination without abnormal findings[ICD10: Z00.00] Diagnosis: Primary dysmenorrhea[ICD10: N94.4] Joseph BENJAMIN [employer] [address] [place] [address] CPT-4: 83901 0 ([id number]) PREV VISIT EST AGE 18-39 Diagnosis: Encounter for general adult medical examination without abnormal findings[ICD10: Z00.00] Diagnosis: Primary dysmenorrhea[ICD10: N94.4] Joseph BENJAMIN [address] [address] CPT-4: 62694 9 (94268) PREV VISIT EST AGE 18-39 Diagnosis: Encounter for general adult medical examination without abnormal findings[ICD10: Z00.00] Diagnosis: Encounter for gynecological examination (general) (routine) without abnormal findings[ICD10: Z01.419] Diagnosis: Primary dysmenorrhea[ICD10: N94.4] Joseph BENJAMIN [address] [address] CPT-4: 72326 8 ([id number]) PREV VISIT EST AGE 18-39 Diagnosis: Encounter for general adult medical examination without abnormal findings[ICD10: Z00.00] Diagnosis: Primary dysmenorrhea[ICD10: N94.4] Diagnosis: Melanocytic nevi of trunk[ICD10: D22.5] Joseph BENJAMIN DO [address] [address] CPT-4: 75501 7 (53387) PREV VISIT EST AGE 18-39 Diagnosis: Encounter for general adult medical examination without abnormal findings[ICD10: Z00.00] Diagnosis: Primary dysmenorrhea[ICD10: N94.4] Joseph BENJAMIN DO [address] [address] CPT-4: 86671 6 (57413) PREV VISIT EST AGE 18-39 Diagnosis: ROUTINE GYNE EXAM[ICD9: V72.31] Diagnosis: ROUTINE MEDICAL EXAM[ICD9: V70.0] Lynda Mahoney JOSEPH BENJAMIN [address] [address] CPT-4: 79510 5 (26708) OFFICE/OUTPATIENT VISIT EST Diagnosis: DYSMENORRHEA[ICD9: 625.3] Josephjoie BENJAMIN DO [employer] [address] [place] [address] CPT-4: 54629 4 (17262) PREV VISIT EST AGE 18-39 Diagnosis: ROUTINE MEDICAL EXAM[ICD9: V70.0] Diagnosis: ROUTINE GYNE EXAM[ICD9: V72.31] Diagnosis: Dysmenorrhea[ICD9: 625.3] Joseph Delgadorosi PALOMOJOSEPHMERVAT BENJAMIN DO [employer] [address] [place] [phone] CPT-4: 08049 3 (76925) SPECIMEN HANDLING OFFICE-LAB Diagnosis: [ICD9: ] Diagnosis: [ICD9: ] Diagnosis: [ICD9: ] Joseph Kaplanlita JOSEPH SBrii YULIA PERKINS [employer] [address] [place] [address] CPT-4: 97684 3 (28843) PREV VISIT NEW AGE 18-39 Diagnosis: ROUTINE MEDICAL EXAM[ICD9: V70.0] Diagnosis: Visit for routine obgyn hospitalist physician exam[ICD9: V72.31] Itzel RUIZ ArturoBrii YULIA PERKINS [employer] [address] [place] [phone] CPT-4: 45416 2 (95316) SPECIMEN HANDLING Diagnosis: [ICD9: ] Diagnosis: [ICD9: ] Itzel Arana JOSEPHMERVAT BENJAMIN DO [employer] [address] [place] [address] CPT-4: 13015 2 Plan of Care Planned Activity Notes Codes Status Date Visit Diagnosis Plan: with 5 completed weeks gestation Discussion: On a PNV Discussed no NSAIDs, no alcohol, meds to avoid Can use TUMs prn Can use tylenol prn Referral to OB Due date June 25 by dates ICD-9 : V22.2 ICD-10 : Z3A.01 10/24/2022 Appointment: Joseph Benjamin WPtel: [phone] ACUTE ILLNESS 10/24/2022 Visit Diagnosis Plan: Encounter for general [...] : N94.4 11/08/2021 Appointment: Joseph Benjamin WPtel: [facility] [address] Annual Well Visit 11/08/2021 Visit Diagnosis Plan: [...] : Z01.419 10/11/2020 Appointment: Joseph Benjamin WPtel: [phone] Annual Well Visit 10/11/2020 Visit Diagnosis Plan: Encounter for general adult medical examination without abnormal findings Discussion: Mediterranean diet Combination of cardio and weight bearing exercise Gets yearly lab at work ICD-9 : V70.0 ICD-10 : Z00.00 10/09/2019 Visit Diagnosis Plan: Primary dysmenorrhea Discussion: Stable on sprintec ICD-9 : 625.3 ICD-10 : N94.4 10/09/2019 Appointment: Joseph Benjamin WPtel: [address] [phone] Annual Well Visit 10/09/2019 Patient Education: Sprintec (28)- OptimizeRX Coupon [id number] https://www.[employer]. Anytime DD/samplemd/resource s/getResource/61/cf7c 90u8-pyd7-7048-gjnw-5 [email or web address].pdf Completed 10/09/2019 Visit Diagnosis Plan: Encounter for general adult medical examination without abnormal findings Discussion: On PNV Mediterranean diet Resume exercise--combo of cardio/weight bearing exercise Recommend updated TdaP ICD-9 : V70.0 ICD-10 : Z00.00 10/09/2018 Appointment: Joseph Benjamin WPtel: [address] [phone] Ref# [id number] for annual and will be covered per [employer]. [phone] Annual Well Visit 10/09/2018 Visit Diagnosis Plan: Encounter for general adult medical examination without abnormal findings Discussion: Increase Exercise Discussed compression socks for work since sits ICD-9 : V70.0 ICD-10 : Z00.00 10/17/2017 Visit Diagnosis Plan: Encounter for gynecological examination (general) (routine) without abnormal findings Discussion: Pap done Add PNV ICD-9 : V72.31 ICD-10 : Z01.419 10/17/2017 Appointment: Joseph Benjamin WPtel: [phone] Annual Well Visit 10/17/2017 Patient Education: Patient [...] Z48.02 05/07/2017 Appointment: Joseph Benjamin WPtel: [address] [phone] Suture Removal 05/07/2017 Patient Education: Patient Medication Summary Completed 05/07/2017 Visit Diagnosis Plan: Melanocytic nevi of trunk Discussion: Excised with 4-0 punch biopsy--sutures x2 then steri strips and opsite Return in 10 days for suture removal ICD-9 : 216.5 ICD-10 : D22.5 04/26/2017 Appointment: Joseph Benjamin WPtel: [address] [place], [place] [phone] 8/9 lm~sl ACUTE ILLNESS 04/26/2017 Patient Education: Patient Medication Summary Completed 04/26/2017 Visit Diagnosis Plan: Primary dysmenorrhea Discussion: Continue sprintec ICD-9 : 625.3 ICD-10 : N94.4 10/16/2016 Visit Diagnosis Plan: Melanocytic nevi of trunk Discussion: Return for removal ICD-9 : 216.5 ICD-10 : D22.5 10/16/2016 Appointment: Joseph Benjamin WPtel: [address] [place], [place] [phone] 10/13 lm`sl 10/16 confirmed `sl Annual Well Visit 10/16/2016 Patient Education: Patient Medication Summary Completed 10/16/2016 Visit Plan: Continue sprintec Will plan on Pap smear next year Gets lab done in March at work 10/14/2015 Appointment: Joseph Benjamin WPtel: [address] [place], [place] [phone] 10/13/15 appt confirmed cn Annual Well Visit 10/14/2015 Patient Education: Patient Medication Summary Completed 10/14/2015 Appointment: Lynda Mahoney WPtel: [address] [place], [place] [address] Annual Well Visit 10/26/2014 Patient Education: Patient Medication Summary Completed 10/26/2014 Patient Education: ConsumerCare - Antibiotics, Analgesics 18+, Oral Contraceptives F 18+ Completed 10/26/2014 Visit Plan: Continue sprintec 12/04/2013 Appointment: Joseph Benjamin WPtel: [address] [place], [place] [phone] US PAP 12/04/2013 Patient Education: Patient Medication Summary Completed 12/04/2013 Visit Plan: Pap done Continue Sprintec 12/18/2012 [facility]ment[facility] [facility] [facility] 12/18/2012 Patient Education: Patient Medication Summary Completed 12/18/2012 [facility]ment[facility] [facility] NEW [facility] 01/30/2012 Patient Education: Patient Medication Summary Completed 01/30/2012 Instructions Comment Date . Continue sprintec Will plan on Pap smear next year Gets lab done in March at work 10/14/2015 . Continue sprintec 12/04/2013 . Pap done Continue Sprintec 12/18/2012 Medical Equipment No Medical Equipment data Advance Directives No Advance Directive data
--- OUTSIDE RECORDS SUMMARY | 2023-06-04 10:40 | XMS REPORT | CCD ---
Author Author Danielle Arana APRN Organization JOSEPH Luis DO [facility] Address [address] [place] [address] Phone Care Team Providers Care Director Of Curriculum Name Role Phone Joseph Benjamin D.O. PP Unavail able CCM Unavailable Summary Purpose Interface Exchange Insurance Providers Payer name Policy type / Coverage type Covered alliance party ID Effective Begin Date Effective End Date CIGNA Commercial Insurance [id number] Unk nown Family history Grandmother Diagnosis Age At Onset Uterine Cancer Unknown Mother Diagnosis Age At Onset Diabetes mellitus Type 2 Unknown Hypertension Unknown Social History Social History Element Codes Description Effec tive Dates Marital status Unknown Single 01/30/2012 Employment Unknown Currently employed [address]: 934784341 Has never s moked or chewed tobacco [...] Sprintec (28) 0.25 mg-35 mcg tablet RxNorm: 936543 Take 1 tablet by mouth once daily 1 09/12/20 21 Active multivitamin tablet RxNorm: 1 Tablet(s) Oral QD 1 No Stop Date Active Sprintec (28) 0.25 mg-35 mcg tablet RxNorm: 033474 Take 1 tablet by mouth once daily 1 10/10/19 21 Inactive Sprintec (28) 0.25 mg-35 mcg tablet RxNorm: 650838 TAKE ONE TABLET BY MOUTH ONCE DAILY 0 10/21/19 20 Inactive Sprintec (28) 0.25 mg-35 mcg tablet RxNorm: 569623 TAKE ONE TABLET BY MOUTH ONCE DAILY 9 10/08/19 20 Inactive Sprintec (28) 0.25 mg-35 mcg tablet RxNorm: 097232 1 Tablet(s) PO QD 8 10/15/19 19 Inactive Sprintec (28) 0.25 mg-35 mcg tablet RxNorm: 846496 1 Tablet(s) PO QD 7 10/16/19 18 Inactive Sprintec (28) 0.25 mg-35 mcg tablet RxNorm: 255298 1 Tablet(s) PO QD 6 10/30/19 17 Inactive Sprintec (28) 0.25 mg-35 mcg tablet RxNorm: 525857 1 Tablet(s) PO QD 5 10/13/19 16 Inactive Sprintec (28) 0.25 mg-35 mcg tablet RxNorm: 842626 1 Tablet(s) PO QD 4 10/25/19 15 Inactive Sprintec (28) 0.25 mg-35 mcg tablet RxNorm: 046077 1 Tablet(s) PO QD 4 12/04/19 14 Inactive Sprintec (28) 0.25 mg-35 mcg tablet RxNorm: 891327 1 Tablet(s) PO QD 3 11/19/19 14 Inactive Sprintec (28) 0.25 mg-35 mcg tablet RxNorm: 537240 1 Tablet(s) PO QD 2 12/18/19 13 Inactive Medication Administered No Medication Administered data Procedures Procedure Codes Date SPECIMEN HANDLING OFFICE-LAB CPT-4: 02267 SPECIMEN HANDLING OFFICE-LAB CPT-4: 56427 EXC TR-EXT B9+TRACE 0.5 CM< CPT-4: 14567 04/26 Vital Signs Date Vital Reason For [...] 01/30/2012 Encounters Encounter Performer Location Codes Date (13828) PREV VISIT EST AGE 18-39 Diagnosis: Encounter for general adult medical examination without abnormal findings[ICD10: Z00.00] Diagnosis: Encounter for gynecological examination (general) (routine) without abnormal findings[ICD10: Z01.419] Joseph BENJAMIN [employer] CPT-4: 76547 10/11/2020 ([id number]) PREV VISIT EST AGE 18-39 Diagnosis: Encounter for general adult medical examination without abnormal findings[ICD10: Z00.00] Diagnosis: Primary dysmenorrhea[ICD10: N94.4] Joseph BENJAMIN [employer] CPT-4: 44051 10/09/2019 ([id number]) PREV VISIT EST AGE 18-39 Diagnosis: Encounter for general adult medical examination without abnormal findings[ICD10: Z00.00] Diagnosis: Primary dysmenorrhea[ICD10: N94.4] Joseph BENJAMIN DO [employer] CPT-4: 75408 10/09/2018 ([id number]) PREV VISIT EST AGE 18-39 Diagnosis: Encounter for general adult medical examination without abnormal findings[ICD10: Z00.00] Diagnosis: Encounter for gynecological examination (general) (routine) without abnormal findings[ICD10: Z01.419] Diagnosis: Primary dysmenorrhea[ICD10: N94.4] Joseph BENJAMIN DO [employer] CPT-4: 79372 10/17/2017 ([id number]) PREV VISIT EST AGE 18-39 Diagnosis: Encounter for general adult medical examination without abnormal findings[ICD10: Z00.00] Diagnosis: Primary dysmenorrhea[ICD10: N94.4] Diagnosis: Melanocytic nevi of trunk[ICD10: D22.5] Joseph BENJAMIN DO [employer] CPT-4: 97660 10/16/2016 (76916) PREV VISIT EST AGE 18-39 Diagnosis: Encounter for general adult medical examination without abnormal findings[ICD10: Z00.00] Diagnosis: Primary dysmenorrhea[ICD10: N94.4] Joseph BENJAMIN DO [employer] CPT-4: 15420 10/14/2015 ([id number]) PREV VISIT EST AGE 18-39 Diagnosis: ROUTINE GYNE EXAM[ICD9: V72.31] Diagnosis: ROUTINE MEDICAL EXAM[ICD9: V70.0] Lynda Mahoney JOSEPH BENJAMIN DO [employer] CPT-4: 35706 10/26/2014 ([id number]) OFFICE/OUTPATIENT VISIT EST Diagnosis: DYSMENORRHEA[ICD9: 625.3] Joseph BENJAMIN DO [employer] CPT-4: 79760 12/04/2013 (77887) PREV VISIT EST AGE 18-39 Diagnosis: ROUTINE MEDICAL EXAM[ICD9: V70.0] Diagnosis: ROUTINE GYNE EXAM[ICD9: V72.31] Diagnosis: Dysmenorrhea[ICD9: 625.3] Joseph Dannynisreenlita BENJAMIN DO [employer] CPT-4: 43912 12/18/2012 (64606) SPECIMEN HANDLING OFFICE-LAB Diagnosis: [ICD9: ] Diagnosis: [ICD9: ] Diagnosis: [ICD9: ] Joseph BENJAMIN DO [employer] CPT-4: 81994 12/18/2012 ([id number]) PREV VISIT NEW AGE 18-39 Diagnosis: ROUTINE MEDICAL EXAM[ICD9: V70.0] Diagnosis: Visit for routine obstetrics gyn exam[ICD9: V72.31] Itzel BENJAMIN DO [employer] CPT-4: 03451 01/30/2012 ([id number]) SPECIMEN HANDLING Diagnosis: [ICD9: ] Diagnosis: [ICD9: ] Itzel BENJAMIN DO [employer] CPT-4: 18091 01/30/2012 Plan of Care Planned Activity Notes [...] N94.4 10/09/2019 Appointment: [facility] [facility] [facility] 10/09/2019 Patient Education: Sprintec (28)- OptimizeRX Coupon [id number] https://www.sampleClaraStream. com/samplemd/resource s/getResource/61/cf7c 88n8-cpr1-4416-uoga-8 [email or web address].pdf Completed 10/09/2019 Visit Diagnosis Plan: Encounter for general adult medical examination without abnormal findings Discussion: On PNV Mediterranean diet Resume exercise--combo of cardio/weight bearing exercise Recommend updated TdaP ICD-9 : V70.0 ICD-10 : Z00.00 10/09/2018 Appointment: Joseph Benjamin WPtel: [facility] [address] Ref# [id number] for annual and will be covered per [employer]. [phone] Annual Well Visit 10/09/2018 Visit Diagnosis Plan: Encounter for general adult medical examination without abnormal findings Discussion: Increase Exercise Discussed compression socks for work since sits ICD-9 : V70.0 ICD-10 : Z00.00 10/17/2017 Visit Diagnosis Plan: Encounter for gynecological examination (general) (routine) without abnormal findings Discussion: Pap done Add PNV ICD-9 : V72.31 ICD-10 : Z01.419 10/17/2017 Appointment: Joseph Benjamin WPtel: [address] [place] [address] Annual Well Visit 10/17/2017 Patient Education: Patient [...] : Z48.02 05/07/2017 Appointment: Joseph Benjamin WPtel: [facility] Suture Removal 05/07/2017 Patient Education: Patient Medication Summary Completed 05/07/2017 Visit Diagnosis Plan: Melanocytic nevi of trunk Discussion: Excised with 4-0 punch biopsy--sutures x2 then steri strips and opsite Return in 10 days for suture removal ICD-9 : 216.5 ICD-10 : D22.5 04/26/2017 Appointment: Joseph Benjamin WPtel: [address] [place] [address] 8/9 lm~sl ACUTE ILLNESS 04/26/2017 Patient Education: Patient Medication Summary Completed 04/26/2017 Visit Diagnosis Plan: Primary dysmenorrhea Discussion: Continue sprintec ICD-9 : 625.3 ICD-10 : N94.4 10/16/2016 Visit Diagnosis Plan: Melanocytic nevi of trunk Discussion: Return for removal ICD-9 : 216.5 ICD-10 : D22.5 10/16/2016 Appointment: Joseph Benjamin WPtel: [address] [place] [address] 10/13 lm`sl 10/16 confirmed `sl Annual Well Visit 10/16/2016 Patient Education: Patient Medication Summary Completed 10/16/2016 Visit Plan: Continue sprintec Will plan on Pap smear next year Gets lab done in March at work 10/14/2015 Appointment: Joseph Benjamin WPtel: [address] [place] [address] 10/13/15 appt confirmed cn Annual Well Visit 10/14/2015 Patient Education: Patient Medication Summary Completed 10/14/2015 Appointment: Lynda Mahoney WPtel: [address] [place] [address] Annual Well Visit 10/26/2014 Patient Education: Patient Medication Summary Completed 10/26/2014 Patient Education: ConsumerCare - Antibiotics, Analgesics 18+, Oral Contraceptives F 18+ Completed 10/26/2014 Visit Plan: Continue sprintec 12/04/2013 Appointment: Joseph Benjamin WPtel: [address] [place] [address] US PAP 12/04/2013 Patient Education: Patient Medication Summary Completed 12/04/2013 Visit Plan: Pap done Continue Sprintec 12/18/2012 Appointment: [facility] [facility] [facility] 12/18/2012 Patient Education: Patient Medication Summary Completed 12/18/2012 Appointment: Itzel Ar[facility] [facility] NEW PATIENT 01/30/2012 Patient Education: Patient Medication Summary Completed 01/30/2012 Instructions Comment . Continue sprintec Will plan on Pap smear next year Gets lab done in March at work . Continue sprintec . Pap done Continue Sprintec Medical Equipment No Medical Equipment data Advance Directives No Advance Directive data
--- OUTSIDE RECORDS SUMMARY | 2023-06-04 10:40 | XMS REPORT | CCD ---
Author Author Danielle Arana APRN Organization JOSEPH Luis DO [facility] Address [address] [place] [address] Phone Care Team Providers Care Ruling Machine Set Up Operator Name Role Phone Joseph Benjamin D.O. PP Unavail able CCM Unavailable Summary Purpose Interface Exchange Insurance Providers Payer name Policy type / Coverage type Covered republican ID Effective Begin Date Effective End Date CIGNA Commercial Insurance [id number] Unk nown Family history Grandmother Diagnosis Age At Onset Uterine Cancer Unknown Mother Diagnosis Age At Onset Diabetes mellitus Type 2 Unknown Hypertension Unknown Social History Social History Element Codes Description Effec tive Dates Marital status Unknown Single 01/30/2012 Employment Unknown Currently employed [address]: 178404345 Has never s moked or chewed tobacco [...] Sprintec (28) 0.25 mg-35 mcg tablet RxNorm: 340943 Take 1 tablet by mouth once daily 2 08/22/20 22 Active Sprintec (28) 0.25 mg-35 mcg tablet RxNorm: 749557 Take 1 tablet by mouth once daily 2 11/16/19 22 Inactive Sprintec (28) 0.25 mg-35 mcg tablet RxNorm: 280659 Take 1 tablet by mouth once daily 2 10/30/19 22 Inactive multivitamin tablet RxNorm: 1 Tablet(s) Oral QD 1 No Stop Date Active Sprintec (28) 0.25 mg-35 mcg tablet RxNorm: 793557 Take 1 tablet by mouth once daily 1 10/11/19 21 Inactive Sprintec (28) 0.25 mg-35 mcg tablet RxNorm: 122445 Take 1 tablet by mouth once daily 1 10/10/19 21 Inactive Sprintec (28) 0.25 mg-35 mcg tablet RxNorm: 342741 TAKE ONE TABLET BY MOUTH ONCE DAILY 0 10/21/19 20 Inactive Sprintec (28) 0.25 mg-35 mcg tablet RxNorm: 743338 TAKE ONE TABLET BY MOUTH ONCE DAILY 9 10/08/19 20 Inactive Sprintec (28) 0.25 mg-35 mcg tablet RxNorm: 228046 1 Tablet(s) PO QD 8 10/15/19 19 Inactive Sprintec (28) 0.25 mg-35 mcg tablet RxNorm: 575119 1 Tablet(s) PO QD 7 10/16/19 18 Inactive Sprintec (28) 0.25 mg-35 mcg tablet RxNorm: 598630 1 Tablet(s) PO QD 6 10/30/19 17 Inactive Sprintec (28) 0.25 mg-35 mcg tablet RxNorm: 476209 1 Tablet(s) PO QD 5 10/13/19 16 Inactive Sprintec (28) 0.25 mg-35 mcg tablet RxNorm: 045615 1 Tablet(s) PO QD 4 10/25/19 15 Inactive Sprintec (28) 0.25 mg-35 mcg tablet RxNorm: 406490 1 Tablet(s) PO QD 4 12/04/19 14 Inactive Sprintec (28) 0.25 mg-35 mcg tablet RxNorm: 172448 1 Tablet(s) PO QD 3 11/19/19 14 Inactive Sprintec (28) 0.25 mg-35 mcg tablet RxNorm: 280475 1 Tablet(s) PO QD 2 12/18/19 13 Inactive Medication Administered No Medication Administered data Immunizations Vaccine Codes Dose Date Status Covid-19 CVX: 207 08/05/2021 Influenza CVX: 141 06/22/2021 Procedures Procedure Codes Date SPECIMEN HANDLING OFFICE-LAB CPT-4: 65975 SPECIMEN HANDLING OFFICE-LAB CPT-4: 64646 EXC TR-EXT B9+TRACE 0.5 CM< CPT-4: 89786 04/26 Vital Signs Date Vital Reason For [...] Encounter Performer Location Location Address Codes Date (38701) PREV VISIT EST AGE 18-39 Diagnosis: Encounter for general adult medical examination without abnormal findings[ICD10: Z00.00] Diagnosis: Primary dysmenorrhea[ICD10: N94.4] Joseph BENJAMIN DO [facility] [address] [place] [phone] CPT-4: 71354 2 (89228) PREV VISIT EST AGE 18-39 Diagnosis: Encounter for general adult medical examination without abnormal findings[ICD10: Z00.00] Diagnosis: Encounter for gynecological examination (general) (routine) without abnormal findings[ICD10: Z01.419] Joseph Dannynisreenmilena JOSEPH ArturoBrii YULIA DO [facility] [address] [place] [phone] CPT-4: 10754 1 (53737) PREV VISIT EST AGE 18-39 Diagnosis: Encounter for general adult medical examination without abnormal findings[ICD10: Z00.00] Diagnosis: Primary dysmenorrhea[ICD10: N94.4] Joseph Dannynisreenmilena HASSANJOSEPH ArturoBrii YULIA DO [facility] [address] [place] [phone] CPT-4: 60344 0 ([id number]) PREV VISIT EST AGE 18-39 Diagnosis: Encounter for general adult medical examination without abnormal findings[ICD10: Z00.00] Diagnosis: Primary dysmenorrhea[ICD10: N94.4] Joseph Dannynisreenmilena JOSEPH ArturoBrii YULIA DO [facility] [address] [place] [address] CPT-4: 42994 9 (25796) PREV VISIT EST AGE 18-39 Diagnosis: Encounter for general adult medical examination without abnormal findings[ICD10: Z00.00] Diagnosis: Encounter for gynecological examination (general) (routine) without abnormal findings[ICD10: Z01.419] Diagnosis: Primary dysmenorrhea[ICD10: N94.4] Joseph Dannynisreenmilena JOSEPH ArturoBrii DANNYNDMILENA DO [facility] [address] [place] [phone] CPT-4: 67239 8 (59150) PREV VISIT EST AGE 18-39 Diagnosis: Encounter for general adult medical examination without abnormal findings[ICD10: Z00.00] Diagnosis: Primary dysmenorrhea[ICD10: N94.4] Diagnosis: Melanocytic nevi of trunk[ICD10: D22.5] Joseph BENJAMIN DO [address] [address] CPT-4: 56731 7 (79202) PREV VISIT EST AGE 18-39 Diagnosis: Encounter for general adult medical examination without abnormal findings[ICD10: Z00.00] Diagnosis: Primary dysmenorrhea[ICD10: N94.4] Joseph BENJAMIN DO [facility] [address] [place] [phone] CPT-4: 93806 6 ([id number]) PREV VISIT EST AGE 18-39 Diagnosis: ROUTINE GYNE EXAM[ICD9: V72.31] Diagnosis: ROUTINE MEDICAL EXAM[ICD9: V70.0] Lynda Lainescott BENJAMIN DO [facility] [address] [place] [phone] CPT-4: 20369 5 ([id number]) OFFICE/OUTPATIENT VISIT EST Diagnosis: DYSMENORRHEA[ICD9: 625.3] Joseph BENJAMIN DO [facility] [address] [place] [phone] CPT-4: 76580 4 (18154) PREV VISIT EST AGE 18-39 Diagnosis: ROUTINE MEDICAL EXAM[ICD9: V70.0] Diagnosis: ROUTINE GYNE EXAM[ICD9: V72.31] Diagnosis: Dysmenorrhea[ICD9: 625.3] Joseph BENJAMIN DO [facility] [address] [place] [phone] CPT-4: 32218 3 ([id number]) SPECIMEN HANDLING OFFICE-LAB Diagnosis: [ICD9: ] Diagnosis: [ICD9: ] Diagnosis: [ICD9: ] Joseph RUIZ ArturoBrii YULIA DO [facility] [address] [place] [address] CPT-4: 94065 3 (05166) PREV VISIT NEW AGE 18-39 Diagnosis: ROUTINE MEDICAL EXAM[ICD9: V70.0] 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] Itzel Arana JOSEPH Dunn YULIA DO [facility] [address] [place] [phone] CPT-4: 02026 2 (63013) SPECIMEN HANDLING Diagnosis: [ICD9: ] Diagnosis: [ICD9: ] Itzel Arana JOSEPH ArturoBrii YULIA DO [facility] [address] [place] [phone] CPT-4: 16850 2 Plan of Care Planned Activity Notes [...] N94.4 11/08/2021 Appointment: Joseph Benjamin WPtel: [address] [place], [place] [phone] Annual Well Visit 11/08/2021 Visit Diagnosis Plan: [...] : Z01.419 10/11/2020 Appointment: Joseph Benjamin WPtel: [phone] Annual Well Visit 10/11/2020 Visit Diagnosis Plan: Encounter for general adult medical examination without abnormal findings Discussion: Mediterranean diet Combination of cardio and weight bearing exercise Gets yearly lab at work ICD-9 : V70.0 ICD-10 : Z00.00 10/09/2019 Visit Diagnosis Plan: Primary dysmenorrhea Discussion: Stable on sprintec ICD-9 : 625.3 ICD-10 : N94.4 10/09/2019 Appointment: Joseph Benjamin WPtel: [facility]6 [address] Annual Well Visit 10/09/2019 Patient Education: Sprintec (28)- OptimizeRX Coupon [id number] [email or web address]/Revionics/resource s/getResource/61/cf7c [email or web address]-[email or web address].pdf Completed 10/09/2019 Visit Diagnosis Plan: Encounter for general adult medical examination without abnormal findings Discussion: On PNV Mediterranean diet Resume exercise--combo of cardio/weight bearing exercise Recommend updated TdaP ICD-9 : V70.0 ICD-10 : Z00.00 10/09/2018 Appointment: oJseph Benjamin WPtel: [address] [place] [address] Ref# [id number] for annual and will be covered per [facility]. [phone] Annual Well Visit 10/09/2018 Visit Diagnosis Plan: Encounter for general adult medical examination without abnormal findings Discussion: Increase Exercise Discussed compression socks for work since sits ICD-9 : V70.0 ICD-10 : Z00.00 10/17/2017 Visit Diagnosis Plan: Encounter for gynecological examination (general) (routine) without abnormal findings Discussion: Pap done Add PNV ICD-9 : V72.31 ICD-10 : Z01.419 10/17/2017 Appointment: Joseph Benjamin WPtel: [facility] [place] [address] Annual Well Visit 10/17/2017 Patient Education: Patient [...] : D22.5 04/26/2017 Appointment: Joseph Benjamin WPtel[facility] 04/25 lm~sl ACUTE ILLNESS 04/26/2017 Patient Education: Patient Medication Summary Completed 04/26/2017 Visit Diagnosis Plan: Primary dysmenorrhea Discussion: Continue sprintec ICD-9 : 625.3 ICD-10 : N94.4 10/16/2016 Visit Diagnosis Plan: Melanocytic nevi of trunk Discussion: Return for removal ICD-9 : 216.5 ICD-10 : D22.5 10/16/2016 Appointment: Joseph Benjamin WPtel: [address] [place], [place] [phone] 10/13 lm`sl 10/16 confirmed `sl Annual Well Visit 10/16/2016 Patient Education: Patient Medication Summary Completed 10/16/2016 Visit Plan: Continue sprintec Will plan on Pap smear next year Gets lab done in March at work 10/14/2015 Appointment: Joseph Benjamin WPtel: [phone] 10/13/15 appt confirmed cn Annual Well Visit 10/14/2015 Patient Education: Patient Medication Summary Completed 10/14/2015 Appointment: Lynda Mahoney WPtel: [address] [place] [phone] Annual Well Visit 10/26/2014 Patient Education: Patient Medication Summary Completed 10/26/2014 Patient Education: ConsumerCare - Antibiotics, Analgesics 18+, Oral Contraceptives F 18+ Completed 10/26/2014 Visit Plan: Continue sprintec 12/04/2013 Appointment: Joseph Benjamin WPtel: [address] [place] [phone] PAP 12/04/2013 Patient Education: Patient Medication Summary Completed 12/04/2013 Visit Plan: Pap done Continue Sprintec 12/18/2012 Appointment: Joseph Benjamin WPtel: [address] [place], [place] [phone] PAP 12/18/2012 Patient Education: Patient Medication Summary Completed 12/18/2012 Appointment: Itzel Arana WPtel: [address] [place], [place] [address] NEW PATIENT 01/30/2012 Patient Education: Patient Medication Summary Completed 01/30/2012 Instructions Comment Date . Continue sprintec Will plan on Pap smear next year Gets lab done in March at work 10/14/2015 . Continue sprintec 12/04/2013 . Pap done Continue Sprintec 12/18/2012 Medical Equipment No Medical Equipment data Advance Directives No Advance Directive data
--- OUTSIDE RECORDS SUMMARY | 2023-06-04 10:40 | XMS REPORT | CCD ---
Author Author Danielle Arana APRN Organization JOSEPH Luis DO [facility] Address [address] [place] [address] Phone Care Team Providers Care Registered Account Administrator Name Role Phone Joseph Benjamin D.O. PP Unavail able CCM Unavailable Summary Purpose Interface Exchange Insurance Providers Payer name Policy type / Coverage type Covered republican ID Effective Begin Date Effective End Date CIGNA Commercial Insurance [id number] Unk nown Family history Grandmother Diagnosis Age At Onset Uterine Cancer Unknown Mother Diagnosis Age At Onset Diabetes mellitus Type 2 Unknown Hypertension Unknown Social History Social History Element Codes Description Effec tive Dates Marital status Unknown Single 01/30/2012 Employment Unknown Currently employed [address]: 086340213 Has never s moked or chewed tobacco [...] Sprintec (28) 0.25 mg-35 mcg tablet RxNorm: 024199 Take 1 tablet by mouth once daily 1 09/12/20 21 Active multivitamin tablet RxNorm: 1 Tablet(s) Oral QD 1 No Stop Date Active Sprintec (28) 0.25 mg-35 mcg tablet RxNorm: 997743 Take 1 tablet by mouth once daily 1 10/10/19 21 Inactive Sprintec (28) 0.25 mg-35 mcg tablet RxNorm: 707310 TAKE ONE TABLET BY MOUTH ONCE DAILY 0 10/21/19 20 Inactive Sprintec (28) 0.25 mg-35 mcg tablet RxNorm: 347761 TAKE ONE TABLET BY MOUTH ONCE DAILY 9 10/08/19 20 Inactive Sprintec (28) 0.25 mg-35 mcg tablet RxNorm: 218834 1 Tablet(s) PO QD 8 10/15/19 19 Inactive Sprintec (28) 0.25 mg-35 mcg tablet RxNorm: 556004 1 Tablet(s) PO QD 7 10/16/19 18 Inactive Sprintec (28) 0.25 mg-35 mcg tablet RxNorm: 934611 1 Tablet(s) PO QD 6 10/30/19 17 Inactive Sprintec (28) 0.25 mg-35 mcg tablet RxNorm: 591203 1 Tablet(s) PO QD 5 10/13/19 16 Inactive Sprintec (28) 0.25 mg-35 mcg tablet RxNorm: 595835 1 Tablet(s) PO QD 4 10/25/19 15 Inactive Sprintec (28) 0.25 mg-35 mcg tablet RxNorm: 523143 1 Tablet(s) PO QD 4 12/04/19 14 Inactive Sprintec (28) 0.25 mg-35 mcg tablet RxNorm: 447029 1 Tablet(s) PO QD 3 11/19/19 14 Inactive Sprintec (28) 0.25 mg-35 mcg tablet RxNorm: 613092 1 Tablet(s) PO QD 2 12/18/19 13 Inactive Medication Administered No Medication Administered data Procedures Procedure Codes Date SPECIMEN HANDLING OFFICE-LAB CPT-4: 43523 SPECIMEN HANDLING OFFICE-LAB CPT-4: 23920 EXC TR-EXT B9+TRACE 0.5 CM< CPT-4: 85515 04/26 Vital Signs Date Vital Reason For [...] 01/30/2012 Encounters Encounter Performer Location Codes Date (44068) PREV VISIT EST AGE 18-39 Diagnosis: Encounter for general adult medical examination without abnormal findings[ICD10: Z00.00] Diagnosis: Encounter for gynecological examination (general) (routine) without abnormal findings[ICD10: Z01.419] Joseph BENJAMIN [employer] CPT-4: 81696 10/11/2020 (79291) PREV VISIT EST AGE 18-39 Diagnosis: Encounter for general adult medical examination without abnormal findings[ICD10: Z00.00] Diagnosis: Primary dysmenorrhea[ICD10: N94.4] Joseph BENJAMIN [employer] CPT-4: 08294 10/09/2019 (56123) PREV VISIT EST AGE 18-39 Diagnosis: Encounter for general adult medical examination without abnormal findings[ICD10: Z00.00] Diagnosis: Primary dysmenorrhea[ICD10: N94.4] Joseph BENJAMIN DO [facility] CPT-4: 22539 10/09/2018 ([id number]) PREV VISIT EST AGE 18-39 Diagnosis: Encounter for general adult medical examination without abnormal findings[ICD10: Z00.00] Diagnosis: Encounter for gynecological examination (general) (routine) without abnormal findings[ICD10: Z01.419] Diagnosis: Primary dysmenorrhea[ICD10: N94.4] Joseph BENJAMIN DO [facility] CPT-4: 08240 10/17/2017 (03654) PREV VISIT EST AGE 18-39 Diagnosis: Encounter for general adult medical examination without abnormal findings[ICD10: Z00.00] Diagnosis: Primary dysmenorrhea[ICD10: N94.4] Diagnosis: Melanocytic nevi of trunk[ICD10: D22.5] Joseph BENJAMIN DO [facility] CPT-4: 57967 10/16/2016 (25549) PREV VISIT EST AGE 18-39 Diagnosis: Encounter for general adult medical examination without abnormal findings[ICD10: Z00.00] Diagnosis: Primary dysmenorrhea[ICD10: N94.4] Joseph BENJAMIN DO [facility] CPT-4: 01611 10/14/2015 ([id number]) PREV VISIT EST AGE 18-39 Diagnosis: ROUTINE GYNE EXAM[ICD9: V72.31] Diagnosis: ROUTINE MEDICAL EXAM[ICD9: V70.0] Lynda Mahoney JOSEPH BENJAMIN DO [facility] CPT-4: 37898 10/26/2014 ([id number]) OFFICE/OUTPATIENT VISIT EST Diagnosis: DYSMENORRHEA[ICD9: 625.3] Joseph BENJAMIN DO [facility] CPT-4: 27193 12/04/2013 (04186) PREV VISIT EST AGE 18-39 Diagnosis: ROUTINE MEDICAL EXAM[ICD9: V70.0] Diagnosis: ROUTINE GYNE EXAM[ICD9: V72.31] Diagnosis: Dysmenorrhea[ICD9: 625.3] Joseph Dannynisreenlita BENJAMIN DO [facility] CPT-4: 94565 12/18/2012 (09806) SPECIMEN HANDLING OFFICE-LAB Diagnosis: [ICD9: ] Diagnosis: [ICD9: ] Diagnosis: [ICD9: ] Joseph BENJAMIN DO [facility] CPT-4: 88226 12/18/2012 (77992) PREV VISIT NEW AGE 18-39 Diagnosis: ROUTINE MEDICAL EXAM[ICD9: V70.0] 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 com/samplemd/resource s/getResource/61/cf7c [email or web address]-vfdd-[email or web address].pdf Completed 10/09/2019 Visit Diagnosis Plan: Encounter for general adult medical examination without abnormal findings Discussion: On PNV Mediterranean diet Resume exercise--combo of cardio/weight bearing exercise Recommend updated TdaP ICD-9 : V70.0 ICD-10 : Z00.00 10/09/2018 Appointment: Joseph Benjamin WPtel: [facility] Ref# [phone] for annual and will be covered per [employer]. [phone] Annual Well Visit 10/09/2018 Visit Diagnosis Plan: Encounter for general adult medical examination without abnormal findings Discussion: Increase Exercise Discussed compression socks for work since sits ICD-9 : V70.0 ICD-10 : Z00.00 10/17/2017 Visit Diagnosis Plan: Encounter for gynecological examination (general) (routine) without abnormal findings Discussion: Pap done Add PNV ICD-9 : V72.31 ICD-10 : Z01.419 10/17/2017 Appointment: Joseph Benjamin WPtel: [address] [place] [address] Annual Well Visit 10/17/2017 Patient Education: Patient [...] : Z48.02 05/07/2017 Appointment: Joseph Benjamin WPtel: [facility] Suture Removal 05/07/2017 Patient Education: Patient Medication Summary Completed 05/07/2017 Visit Diagnosis Plan: Melanocytic nevi of trunk Discussion: Excised with 4-0 punch biopsy--sutures x2 then steri strips and opsite Return in 10 days for suture removal ICD-9 : 216.5 ICD-10 : D22.5 04/26/2017 Appointment: Joseph Benjamin WPtel: [address] [place] [address] 8/9 lm~sl ACUTE ILLNESS 04/26/2017 Patient Education: Patient Medication Summary Completed 04/26/2017 Visit Diagnosis Plan: Primary dysmenorrhea Discussion: Continue sprintec ICD-9 : 625.3 ICD-10 : N94.4 10/16/2016 Visit Diagnosis Plan: Melanocytic nevi of trunk Discussion: Return for removal ICD-9 : 216.5 ICD-10 : D22.5 10/16/2016 Appointment: Joseph Benjamin WPtel: [address] [place] [address] 10/13 lm`sl 10/16 confirmed `sl Annual Well Visit 10/16/2016 Patient Education: Patient Medication Summary Completed 10/16/2016 Visit Plan: Continue sprintec Will plan on Pap smear next year Gets lab done in March at work 10/14/2015 Appointment: Joseph Benjamin WPtel: [address] [place] [address] 10/13/15 appt confirmed cn Annual Well Visit 10/14/2015 Patient Education: Patient Medication Summary Completed 10/14/2015 Appointment: Lynda Mahoney WPtel: [address] [place] [address] Annual Well Visit 10/26/2014 Patient Education: Patient Medication Summary Completed 10/26/2014 Patient Education: ConsumerCare - Antibiotics, Analgesics 18+, Oral Contraceptives F 18+ Completed 10/26/2014 Visit Plan: Continue sprintec 12/04/2013 Appointment: Joseph Benjamin WPtel: [address] [place] [address] [place] PAP 12/04/2013 Patient Education: Patient Medication Summary Completed 12/04/2013 Visit Plan: Pap done Continue Sprintec 12/18/2012 Appointment: [facility] [address] [facility] [facility] 12/18/2012 Patient Education: Patient Medication Summary Completed 12/18/2012 Appointment: Itzel [facility]el[facility] [phone] [facility] NEW PATIENT 01/30/2012 Patient Education: Patient Medication Summary Completed 01/30/2012 Instructions Comment . Continue sprintec Will plan on Pap smear next year Gets lab done in March at work . Continue sprintec . Pap done Continue Sprintec Medical Equipment No Medical Equipment data Advance Directives No Advance Directive data
--- OUTSIDE RECORDS SUMMARY | 2023-06-04 10:40 | XMS REPORT | CCD ---
Author Author Danielle Arana APRN Organization JOSEPH Luis DO [facility] Address [address] [place] [address] Phone Care Team Providers Care Lint Cleaner Name Role Phone Joseph Benjamin D.O. PP Unavail able CCM Unavailable Summary Purpose Interface Exchange Insurance Providers Payer name Policy type / Coverage type Covered alliance party ID Effective Begin Date Effective End Date CIGNA Commercial Insurance [id number] Unk nown Family history Grandmother Diagnosis Age At Onset Uterine Cancer Unknown Mother Diagnosis Age At Onset Diabetes mellitus Type 2 Unknown Hypertension Unknown Social History Social History Element Codes Description Effec tive Dates Marital status Unknown Single 01/30/2012 Employment Unknown Currently employed [address]: 903071654 Has never s moked or chewed tobacco [...] Sprintec (28) 0.25 mg-35 mcg tablet RxNorm: 789787 Take 1 tablet by mouth once daily 2 09/18/19 23 Active Sprintec (28) 0.25 mg-35 mcg tablet RxNorm: 570829 Take 1 tablet by mouth once daily 2 10/30/19 22 Inactive multivitamin tablet RxNorm: 1 Tablet(s) Oral QD 1 No Stop Date Active Sprintec (28) 0.25 mg-35 mcg tablet RxNorm: 985097 Take 1 tablet by mouth once daily 1 10/11/19 21 Inactive Sprintec (28) 0.25 mg-35 mcg tablet RxNorm: 049191 Take 1 tablet by mouth once daily 1 10/10/19 21 Inactive Sprintec (28) 0.25 mg-35 mcg tablet RxNorm: 396254 TAKE ONE TABLET BY MOUTH ONCE DAILY 0 10/21/19 20 Inactive Sprintec (28) 0.25 mg-35 mcg tablet RxNorm: 275599 TAKE ONE TABLET BY MOUTH ONCE DAILY 9 10/08/19 20 Inactive Sprintec (28) 0.25 mg-35 mcg tablet RxNorm: 565473 1 Tablet(s) PO QD 8 10/15/19 19 Inactive Sprintec (28) 0.25 mg-35 mcg tablet RxNorm: 506765 1 Tablet(s) PO QD 7 10/16/19 18 Inactive Sprintec (28) 0.25 mg-35 mcg tablet RxNorm: 758382 1 Tablet(s) PO QD 6 10/30/19 17 Inactive Sprintec (28) 0.25 mg-35 mcg tablet RxNorm: 382878 1 Tablet(s) PO QD 5 10/13/19 16 Inactive Sprintec (28) 0.25 mg-35 mcg tablet RxNorm: 506459 1 Tablet(s) PO QD 4 10/25/19 15 Inactive Sprintec (28) 0.25 mg-35 mcg tablet RxNorm: 676813 1 Tablet(s) PO QD 4 12/04/19 14 Inactive Sprintec (28) 0.25 mg-35 mcg tablet RxNorm: 782439 1 Tablet(s) PO QD 3 11/19/19 14 Inactive Sprintec (28) 0.25 mg-35 mcg tablet RxNorm: 684543 1 Tablet(s) PO QD 2 12/18/19 13 Inactive Medication Administered No Medication Administered data Immunizations Vaccine Codes Dose Date Status Covid-19 CVX: 207 08/05/2021 Influenza CVX: 141 06/22/2021 Procedures Procedure Codes Date SPECIMEN HANDLING OFFICE-LAB CPT-4: 43430 SPECIMEN HANDLING OFFICE-LAB CPT-4: 40492 EXC TR-EXT B9+TRACE 0.5 CM< CPT-4: 09278 04/26 Vital Signs Date Vital Reason For [...] 01/30/2012 Encounters Encounter Performer Location Codes Date (09190) PREV VISIT EST AGE 18-39 Diagnosis: Encounter for general adult medical examination without abnormal findings[ICD10: Z00.00] Diagnosis: Primary dysmenorrhea[ICD10: N94.4] Joseph BENJAMIN DO [facility] CPT-4: 33421 11/08/2021 ([id number]) PREV VISIT EST AGE 18-39 Diagnosis: Encounter for general adult medical examination without abnormal findings[ICD10: Z00.00] Diagnosis: Encounter for gynecological examination (general) (routine) without abnormal findings[ICD10: Z01.419] Joseph BENJAMIN DO [facility] CPT-4: 08992 10/11/2020 ([id number]) PREV VISIT EST AGE 18-39 Diagnosis: Encounter for general adult medical examination without abnormal findings[ICD10: Z00.00] Diagnosis: Primary dysmenorrhea[ICD10: N94.4] Joseph BENJAMIN DO [facility] CPT-4: 60192 10/09/2019 ([id number]) PREV VISIT EST AGE 18-39 Diagnosis: Encounter for general adult medical examination without abnormal findings[ICD10: Z00.00] Diagnosis: Primary dysmenorrhea[ICD10: N94.4] Joseph BENJAMIN DO [facility] CPT-4: 95421 10/09/2018 ([id number]) PREV VISIT EST AGE 18-39 Diagnosis: Encounter for general adult medical examination without abnormal findings[ICD10: Z00.00] Diagnosis: Encounter for gynecological examination (general) (routine) without abnormal findings[ICD10: Z01.419] Diagnosis: Primary dysmenorrhea[ICD10: N94.4] Joseph BENJAMIN DO K[facility] CPT-4: 89294 10/17/2017 ([id number]) PREV VISIT EST AGE 18-39 Diagnosis: Encounter for general adult medical examination without abnormal findings[ICD10: Z00.00] Diagnosis: Primary dysmenorrhea[ICD10: N94.4] Diagnosis: Melanocytic nevi of trunk[ICD10: D22.5] Joseph BENJAMIN DO KXEN CPT-4: 79650 10/16/2016 ([id number]) PREV VISIT EST AGE 18-39 Diagnosis: Encounter for general adult medical examination without abnormal findings[ICD10: Z00.00] Diagnosis: Primary dysmenorrhea[ICD10: N94.4] Joseph BENJAMIN DO KXEN CPT-4: 47812 10/14/2015 ([id number]) PREV VISIT EST AGE 18-39 Diagnosis: ROUTINE GYNE EXAM[ICD9: V72.31] Diagnosis: ROUTINE MEDICAL EXAM[ICD9: V70.0] Lynda CaballeroAddiescott BENJAMIN DO KX[facility] CPT-4: 99696 10/26/2014 ([id number]) OFFICE/OUTPATIENT VISIT EST Diagnosis: DYSMENORRHEA[ICD9: 625.3] Joseph BENJAMIN DO KX[facility] CPT-4: 41441 12/04/2013 ([id number]) PREV VISIT EST AGE 18-39 Diagnosis: ROUTINE MEDICAL EXAM[ICD9: V70.0] Diagnosis: ROUTINE GYNE EXAM[ICD9: V72.31] Diagnosis: Dysmenorrhea[ICD9: 625.3] Joseph BENJAMIN DO [facility] CPT-4: 01840 12/18/2012 ([id number]) SPECIMEN HANDLING OFFICE-LAB Diagnosis: [ICD9: ] Diagnosis: [ICD9: ] Diagnosis: [ICD9: ] Joseph BENJAMIN DO [facility] CPT-4: 45441 12/18/2012 ([id number]) PREV VISIT NEW AGE 18-39 Diagnosis: ROUTINE MEDICAL EXAM[ICD9: V70.0] Diagnosis: Visit for routine environmental scientists exam[ICD9: V72.31] Itzel Arana JOSEPH BENJAMIN DO [facility] CPT-4: 44195 01/30/2012 ([id number]) SPECIMEN HANDLING Diagnosis: [ICD9: ] Diagnosis: [ICD9: ] Itzel Arana JOSEPH BENJAMIN DO [facility] CPT-4: 74341 01/30/2012 Plan of Care Planned Activity Notes [...] : N94.4 11/08/2021 Appointment: Joseph Benjamin WPtel: [address] [place] [address] Annual Well Visit 11/08/2021 Visit Diagnosis Plan: [...] : Z01.419 10/11/2020 Appointment: Joseph Benjamin WPtel: [address] [place] [address] Annual Well Visit 10/11/2020 Visit Diagnosis Plan: Encounter for general adult medical examination without abnormal findings Discussion: Mediterranean diet Combination of cardio and weight bearing exercise Gets yearly lab at work ICD-9 : V70.0 ICD-10 : Z00.00 10/09/2019 Visit Diagnosis Plan: Primary dysmenorrhea Discussion: Stable on sprintec ICD-9 : 625.3 ICD-10 : N94.4 10/09/2019 Appointment: Joseph Benjamin WPtel: [address] [place] [address] Annual Well Visit 10/09/2019 Patient Education: Sprintec (28)- OptimizeRX Coupon [id number] https://www.[employer]. [employer]/samplemd/resource s/getResource/61/cf7c [email or web address]-[email or web address].pdf Completed 10/09/2019 Visit Diagnosis Plan: Encounter for general adult medical examination without abnormal findings Discussion: On PNV Mediterranean diet Resume exercise--combo of cardio/weight bearing exercise Recommend updated TdaP ICD-9 : V70.0 ICD-10 : Z00.00 10/09/2018 Appointment: Joseph Benjamin WPtel: [address] [place], [place] [phone] Ref# [id number] for annual and will be covered per [employer]. [phone] Annual Well Visit 10/09/2018 Visit Diagnosis Plan: Encounter for general adult medical examination without abnormal findings Discussion: Increase Exercise Discussed compression socks for work since sits ICD-9 : V70.0 ICD-10 : Z00.00 10/17/2017 Visit Diagnosis Plan: Encounter for gynecological examination (general) (routine) without abnormal findings Discussion: Pap done Add PNV ICD-9 : V72.31 ICD-10 : Z01.419 10/17/2017 Appointment: Joseph Benjamin WPtel: [facility] Annual Well Visit 10/17/2017 Patient Education: Patient [...] : Z48.02 05/07/2017 Appointment: Joseph Benjamin WPtel: [address] [place], [place] [phone] Suture Removal 05/07/2017 Patient Education: Patient Medication Summary Completed 05/07/2017 Visit Diagnosis Plan: Melanocytic nevi of trunk Discussion: Excised with 4-0 punch biopsy--sutures x2 then steri strips and opsite Return in 10 days for suture removal ICD-9 : 216.5 ICD-10 : D22.5 04/26/2017 Appointment: Joseph Benjamin WPtel: [address] [place], [place] [phone] 8/9 lm~sl ACUTE ILLNESS 04/26/2017 Patient Education: Patient Medication Summary Completed 04/26/2017 Visit Diagnosis Plan: Primary dysmenorrhea Discussion: Continue sprintec ICD-9 : 625.3 ICD-10 : N94.4 10/16/2016 Visit Diagnosis Plan: Melanocytic nevi of trunk Discussion: Return for removal ICD-9 : 216.5 ICD-10 : D22.5 10/16/2016 Appointment: Joseph Benjamin WPtel: [address] [place], [place] [phone] 10/13 lm`sl 10/16 confirmed `sl Annual Well Visit 10/16/2016 Patient Education: Patient Medication Summary Completed 10/16/2016 Visit Plan: Continue sprintec Will plan on Pap smear next year Gets lab done in March at work 10/14/2015 Appointment: Joseph Benjamin WPtel: [address] [place], [place] [phone] 10/13/15 appt confirmed cn Annual Well Visit 10/14/2015 Patient Education: Patient Medication Summary Completed 10/14/2015 Appointment: Lynda Mahoney WPtel: [address] [place] [address] Annual Well Visit 10/26/2014 Patient Education: Patient Medication Summary Completed 10/26/2014 Patient Education: ConsumerCare - Antibiotics, Analgesics 18+, Oral Contraceptives F 18+ Completed 10/26/2014 Visit Plan: Continue sprintec 12/04/2013 Appointment: Joseph Benjamin WPtel: [address] [place] [address] PAP 12/04/2013 Patient Education: Patient Medication Summary Completed 12/04/2013 Visit Plan: Pap done Continue Sprintec 12/18/2012 Appointment: Joseph Benjamin WPtel: [address] [place] [address] PAP 12/18/2012 Patient Education: Patient Medication Summary Completed 12/18/2012 Appointment: Itzel Arana WPtel: [address] [place] [address] NEW PATIENT 01/30/2012 Patient Education: Patient Medication Summary Completed 01/30/2012 Instructions Comment Date . Continue sprintec Will plan on Pap smear next year Gets lab done in March at work 10/14/2015 . Continue sprintec 12/04/2013 . Pap done Continue Sprintec 12/18/2012 Medical Equipment No Medical Equipment data Advance Directives No Advance Directive data
--- OUTSIDE RECORDS SUMMARY | 2023-06-04 10:40 | XMS REPORT | CCD ---
Author Author Danielle Arana APRN Organization JOSEPH Luis DO [facility] Address [address] [place] [address] Phone Care Team Providers Care Volunteer Firefighter Name Role Phone Joseph Benjamin D.O. PP Unavail able CCM Unavailable Summary Purpose Interface Exchange Insurance Providers Payer name Policy type / Coverage type Covered constitution party ID Effective Begin Date Effective End Date CIGNA Commercial Insurance [id number] Unk nown Family history Grandmother Diagnosis Age At Onset Uterine Cancer Unknown Mother Diagnosis Age At Onset Diabetes mellitus Type 2 Unknown Hypertension Unknown Social History Social History Element Codes Description Effec tive Dates Marital status Unknown Single 01/30/2012 Employment Unknown Currently employed [address]: 667536679 Has never s moked or chewed tobacco [...] Sprintec (28) 0.25 mg-35 mcg tablet RxNorm: 525912 Take 1 tablet by mouth once daily 2 10/23/19 23 Inactive Sprintec (28) 0.25 mg-35 mcg tablet RxNorm: 795893 Take 1 tablet by mouth once daily 2 11/16/19 22 Inactive Sprintec (28) 0.25 mg-35 mcg tablet RxNorm: 592451 Take 1 tablet by mouth once daily 2 10/30/19 22 Inactive multivitamin tablet RxNorm: 1 Tablet(s) Oral QD 1 No Stop Date Active Sprintec (28) 0.25 mg-35 mcg tablet RxNorm: 685675 Take 1 tablet by mouth once daily 1 10/11/19 21 Inactive Sprintec (28) 0.25 mg-35 mcg tablet RxNorm: 019901 Take 1 tablet by mouth once daily 1 10/10/19 21 Inactive Sprintec (28) 0.25 mg-35 mcg tablet RxNorm: 239030 TAKE ONE TABLET BY MOUTH ONCE DAILY 0 10/21/19 20 Inactive Sprintec (28) 0.25 mg-35 mcg tablet RxNorm: 267495 TAKE ONE TABLET BY MOUTH ONCE DAILY 9 10/08/19 20 Inactive Sprintec (28) 0.25 mg-35 mcg tablet RxNorm: 069157 1 Tablet(s) PO QD 8 10/15/19 19 Inactive Sprintec (28) 0.25 mg-35 mcg tablet RxNorm: 124522 1 Tablet(s) PO QD 7 10/16/19 18 Inactive Sprintec (28) 0.25 mg-35 mcg tablet RxNorm: 397706 1 Tablet(s) PO QD 6 10/30/19 17 Inactive Sprintec (28) 0.25 mg-35 mcg tablet RxNorm: 744662 1 Tablet(s) PO QD 5 10/13/19 16 Inactive Sprintec (28) 0.25 mg-35 mcg tablet RxNorm: 090987 1 Tablet(s) PO QD 4 10/25/19 15 Inactive Sprintec (28) 0.25 mg-35 mcg tablet RxNorm: 960190 1 Tablet(s) PO QD 4 12/04/19 14 Inactive Sprintec (28) 0.25 mg-35 mcg tablet RxNorm: 915951 1 Tablet(s) PO QD 3 11/19/19 14 Inactive Sprintec (28) 0.25 mg-35 mcg tablet RxNorm: 494161 1 Tablet(s) PO QD 2 12/18/19 13 Inactive Medication Administered No Medication Administered data Immunizations Vaccine Codes Dose Date Status Covid-19 (Adult) CVX: 217 08/17/2022 Covid-19 CVX: 207 08/05/2021 Influenza CVX: 141 06/22/2021 Procedures Procedure Codes Date URINE TEST CPT-4: 38132 10/24/2022 SPECIMEN HANDLING OFFICE-LAB CPT-4: 12001 SPECIMEN HANDLING OFFICE-LAB CPT-4: 55301 EXC TR-EXT B9+TRACE 0.5 CM< CPT-4: 38158 04/26 Vital Signs Date Vital Reason For [...] Encounter Performer Location Location Address Codes Date (15827) OFFICE/OUTPATIENT VISIT EST Diagnosis: with 5 completed weeks gestation[ICD10: Z3A.01] Diagnosis: Missed menses[ICD10: N92.6] Joseph BENJAMIN KSE [address] [place] [phone] CPT-4: 73741 3 (00230) PREV VISIT EST AGE 18-39 Diagnosis: Encounter for general adult medical examination without abnormal findings[ICD10: Z00.00] Diagnosis: Primary dysmenorrhea[ICD10: N94.4] Joseph BENJAMIN KSE [address] [place] [phone] CPT-4: 22477 2 (11608) PREV VISIT EST AGE 18-39 Diagnosis: Encounter for general adult medical examination without abnormal findings[ICD10: Z00.00] Diagnosis: Encounter for gynecological examination (general) (routine) without abnormal findings[ICD10: Z01.419] Joseph BENJAMIN KSE [address] [place] [address] CPT-4: 98317 1 (56561) PREV VISIT EST AGE 18-39 Diagnosis: Encounter for general adult medical examination without abnormal findings[ICD10: Z00.00] Diagnosis: Primary dysmenorrhea[ICD10: N94.4] Joseph BENJAMIN KSE [address] [place] [address] CPT-4: 30029 0 (64530) PREV VISIT EST AGE 18-39 Diagnosis: Encounter for general adult medical examination without abnormal findings[ICD10: Z00.00] Diagnosis: Primary dysmenorrhea[ICD10: N94.4] Joseph BENJAMIN [address] [address] CPT-4: 74189 9 (90093) PREV VISIT EST AGE 18-39 Diagnosis: Encounter for general adult medical examination without abnormal findings[ICD10: Z00.00] Diagnosis: Encounter for gynecological examination (general) (routine) without abnormal findings[ICD10: Z01.419] Diagnosis: Primary dysmenorrhea[ICD10: N94.4] Joseph BENJAMIN [address] [address] CPT-4: 48775 8 (35540) PREV VISIT EST AGE 18-39 Diagnosis: Encounter for general adult medical examination without abnormal findings[ICD10: Z00.00] Diagnosis: Primary dysmenorrhea[ICD10: N94.4] Diagnosis: Melanocytic nevi of trunk[ICD10: D22.5] Joseph BENJAMIN DO [address] [address] CPT-4: 77419 7 (42874) PREV VISIT EST AGE 18-39 Diagnosis: Encounter for general adult medical examination without abnormal findings[ICD10: Z00.00] Diagnosis: Primary dysmenorrhea[ICD10: N94.4] Joseph BENJAMIN DO [address] [address] CPT-4: 65951 6 (04413) PREV VISIT EST AGE 18-39 Diagnosis: ROUTINE GYNE EXAM[ICD9: V72.31] Diagnosis: ROUTINE MEDICAL EXAM[ICD9: V70.0] Lynda Mahoney JOSEPH BENJAMIN [address] [address] CPT-4: 37641 5 (66514) OFFICE/OUTPATIENT VISIT EST Diagnosis: DYSMENORRHEA[ICD9: 625.3] Joseph BENJAMIN DO rocket staff [address] [place] [phone] CPT-4: 53096 4 (76336) PREV VISIT EST AGE 18-39 Diagnosis: ROUTINE MEDICAL EXAM[ICD9: V70.0] Diagnosis: ROUTINE GYNE EXAM[ICD9: V72.31] Diagnosis: Dysmenorrhea[ICD9: 625.3] Joseph BENJAMIN DO rocket staff [address] [place] [phone] CPT-4: 44502 3 (64887) SPECIMEN HANDLING OFFICE-LAB Diagnosis: [ICD9: ] Diagnosis: [ICD9: ] Diagnosis: [ICD9: ] Joseph BENJAMIN DO [employer] [address] [place] [phone] CPT-4: 09468 3 (26010) PREV VISIT NEW AGE 18-39 Diagnosis: ROUTINE MEDICAL EXAM[ICD9: V70.0] Diagnosis: 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] Itzel BENJAMIN DO rocket staff [address] [place] [address] CPT-4: 07803 2 (53695) SPECIMEN HANDLING Diagnosis: [ICD9: ] Diagnosis: [ICD9: ] Itzel BENJAMIN DO [employer] [address] [place] [phone] CPT-4: 02199 2 Plan of Care Planned Activity Notes [...] : N94.4 11/08/2021 Appointment: Joseph Benjamin WPtel: [address] [place] [address] Annual Well Visit 11/08/2021 Visit Diagnosis Plan: [...] : Z01.419 10/11/2020 Appointment: Joseph Benjamin WPtel: [address] [place] [address] Annual Well Visit 10/11/2020 Visit Diagnosis Plan: Encounter for general adult medical examination without abnormal findings Discussion: Mediterranean diet Combination of cardio and weight bearing exercise Gets yearly lab at work ICD-9 : V70.0 ICD-10 : Z00.00 10/09/2019 Visit Diagnosis Plan: Primary dysmenorrhea Discussion: Stable on sprintec ICD-9 : 625.3 ICD-10 : N94.4 10/09/2019 Appointment: Joseph Benjamin WPtel: [address] [place], [place] [address] Annual Well Visit 10/09/2019 Patient Education: Sprintec (28)- OptimizeRX Coupon [phone] [email or web address]://www.[employer]/resource s/getResource/61/cf7c [email or web address].pdf Completed 10/09/2019 Visit Diagnosis Plan: Encounter for general adult medical examination without abnormal findings Discussion: On PNV Mediterranean diet Resume exercise--combo of cardio/weight bearing exercise Recommend updated TdaP ICD-9 : V70.0 ICD-10 : Z00.00 10/09/2018 Appointment: Joseph Benjamin WPtel: [address] [facility] Ref# [id number] for annual and will be covered per [employer]. [phone] Annual Well Visit 10/09/2018 Visit Diagnosis Plan: Encounter for general adult medical examination without abnormal findings Discussion: Increase Exercise Discussed compression socks for work since sits ICD-9 : V70.0 ICD-10 : Z00.00 10/17/2017 Visit Diagnosis Plan: Encounter for gynecological examination (general) (routine) without abnormal findings Discussion: Pap done Add PNV ICD-9 : V72.31 ICD-10 : Z01.419 10/17/2017 Appointment: Joseph [facility] [address] [facility] [place] Annual Well Visit 10/17/2017 Patient Education: Patient [...] Z48.02 05/07/2017 Appointment: Joseph Benjamin [facility]Ptel[facility] [address] [facility] [place] Suture Removal 05/07/2017 Patient Education: Patient Medication Summary Completed 05/07/2017 Visit Diagnosis Plan: Melanocytic nevi of trunk Discussion: Excised with 4-0 punch biopsy--sutures x2 then steri strips and opsite Return in 10 days for suture removal ICD-9 : 216.5 ICD-10 : D22.5 04/26/2017 Appointment: Joseph Benjamin WPtel: [address] [phone] 04/25 lm~sl ACUTE ILLNESS 04/26/2017 Patient Education: Patient Medication Summary Completed 04/26/2017 Visit Diagnosis Plan: Primary dysmenorrhea Discussion: Continue sprintec ICD-9 : 625.3 ICD-10 : N94.4 10/16/2016 Visit Diagnosis Plan: Melanocytic nevi of trunk Discussion: Return for removal ICD-9 : 216.5 ICD-10 : D22.5 10/16/2016 Appointment: Joseph Benjamin WPtel: [address] [place], [place] [phone] 10/13 lm`sl 10/16 confirmed `sl Annual Well Visit 10/16/2016 Patient Education: Patient Medication Summary Completed 10/16/2016 Visit Plan: Continue sprintec Will plan on Pap smear next year Gets lab done in March at work 10/14/2015 Appointment: Joseph Benjamin WPtel: [address] [place], [place] [phone] 10/13/15 appt confirmed cn Annual Well Visit 10/14/2015 Patient Education: Patient Medication Summary Completed 10/14/2015 Appointment: Lynda Mahoney WPtel: [address] [place] [phone] Annual Well Visit 10/26/2014 Patient Education: Patient Medication Summary Completed 10/26/2014 Patient Education: ConsumerCare - Antibiotics, Analgesics 18+, Oral Contraceptives F 18+ Completed 10/26/2014 Visit Plan: Continue sprintec 12/04/2013 Appointment: Joseph Benjamin WPtel: [address] [place], [place] [phone] [place] PAP 12/04/2013 Patient Education: Patient Medication Summary Completed 12/04/2013 Visit Plan: Pap done Continue Sprintec 12/18/2012 Appointment: Joseph Benjamin [facility]Ptel[facility] [address] [facility] PAP 12/18/2012 Patient Education: Patient Medication Summary Completed 12/18/2012 [facility]ment[facility] [address] [facility] [facility] 01/30/2012 Patient Education: Patient Medication Summary Completed 01/30/2012 Instructions Comment Date . Continue sprintec Will plan on Pap smear next year Gets lab done in March at work 10/14/2015 . Continue sprintec 12/04/2013 . Pap done Continue Sprintec 12/18/2012 Medical Equipment No Medical Equipment data Advance Directives No Advance Directive data
--- OUTSIDE RECORDS SUMMARY | 2023-06-04 10:40 | XMS REPORT | CCD ---
Author Author Danielle Arana APRN Organization JOSEPH Luis DO [facility] Address [address] [place] [address] Phone Care Team Providers Care Defensive Secondary Coach Name Role Phone Joseph Benjamin D.O. PP Unavail able CCM Unavailable Summary Purpose Interface Exchange Insurance Providers Payer name Policy type / Coverage type Covered democrat ID Effective Begin Date Effective End Date CIGNA Commercial Insurance [id number] Unk nown Family history Grandmother Diagnosis Age At Onset Uterine Cancer Unknown Mother Diagnosis Age At Onset Diabetes mellitus Type 2 Unknown Hypertension Unknown Social History Social History Element Codes Description Effec tive Dates Marital status Unknown Single 01/30/2012 Employment Unknown Currently employed [address]: 024888826 Has never s moked or chewed tobacco [...] Sprintec (28) 0.25 mg-35 mcg tablet RxNorm: 661272 Take 1 tablet by mouth once daily 2 11/27/19 22 Active multivitamin tablet RxNorm: 1 Tablet(s) Oral QD 1 No Stop Date Active Sprintec (28) 0.25 mg-35 mcg tablet RxNorm: 143109 Take 1 tablet by mouth once daily 1 10/11/19 21 Inactive Sprintec (28) 0.25 mg-35 mcg tablet RxNorm: 166197 Take 1 tablet by mouth once daily 1 10/10/19 21 Inactive Sprintec (28) 0.25 mg-35 mcg tablet RxNorm: 671078 TAKE ONE TABLET BY MOUTH ONCE DAILY 0 10/21/19 20 Inactive Sprintec (28) 0.25 mg-35 mcg tablet RxNorm: 991155 TAKE ONE TABLET BY MOUTH ONCE DAILY 9 10/08/19 20 Inactive Sprintec (28) 0.25 mg-35 mcg tablet RxNorm: 876933 1 Tablet(s) PO QD 8 10/15/19 19 Inactive Sprintec (28) 0.25 mg-35 mcg tablet RxNorm: 082362 1 Tablet(s) PO QD 7 10/16/19 18 Inactive Sprintec (28) 0.25 mg-35 mcg tablet RxNorm: 298384 1 Tablet(s) PO QD 6 10/30/19 17 Inactive Sprintec (28) 0.25 mg-35 mcg tablet RxNorm: 671052 1 Tablet(s) PO QD 5 10/13/19 16 Inactive Sprintec (28) 0.25 mg-35 mcg tablet RxNorm: 709555 1 Tablet(s) PO QD 4 10/25/19 15 Inactive Sprintec (28) 0.25 mg-35 mcg tablet RxNorm: 616682 1 Tablet(s) PO QD 4 12/04/19 14 Inactive Sprintec (28) 0.25 mg-35 mcg tablet RxNorm: 759830 1 Tablet(s) PO QD 3 11/19/19 14 Inactive Sprintec (28) 0.25 mg-35 mcg tablet RxNorm: 594108 1 Tablet(s) PO QD 2 12/18/19 13 Inactive Medication Administered No Medication Administered data Immunizations Vaccine Codes Dose Date Status Covid-19 CVX: 207 08/05/2021 Influenza CVX: 141 06/22/2021 Procedures Procedure Codes Date SPECIMEN HANDLING OFFICE-LAB CPT-4: 74599 SPECIMEN HANDLING OFFICE-LAB CPT-4: 05139 EXC TR-EXT B9+TRACE 0.5 CM< CPT-4: 61305 04/26 Vital Signs Date Vital Reason For [...] 01/30/2012 Encounters Encounter Performer Location Codes Date (13792) PREV VISIT EST AGE 18-39 Diagnosis: Encounter for general adult medical examination without abnormal findings[ICD10: Z00.00] Diagnosis: Primary dysmenorrhea[ICD10: N94.4] Joseph BENJAMIN DO [facility] CPT-4: 61974 11/08/2021 ([id number]) PREV VISIT EST AGE 18-39 Diagnosis: Encounter for general adult medical examination without abnormal findings[ICD10: Z00.00] Diagnosis: Encounter for gynecological examination (general) (routine) without abnormal findings[ICD10: Z01.419] Joseph BENJAMIN DO [facility] [facility] CPT-4: 67492 10/11/2020 ([id number]) PREV VISIT EST AGE 18-39 Diagnosis: Encounter for general adult medical examination without abnormal findings[ICD10: Z00.00] Diagnosis: Primary dysmenorrhea[ICD10: N94.4] Joseph BENJAMIN DO [employer] CPT-4: 62747 10/09/2019 ([id number]) PREV VISIT EST AGE 18-39 Diagnosis: Encounter for general adult medical examination without abnormal findings[ICD10: Z00.00] Diagnosis: Primary dysmenorrhea[ICD10: N94.4] Joseph BENJAMIN [employer] CPT-4: 14665 10/09/2018 ([id number]) PREV VISIT EST AGE 18-39 Diagnosis: Encounter for general adult medical examination without abnormal findings[ICD10: Z00.00] Diagnosis: Encounter for gynecological examination (general) (routine) without abnormal findings[ICD10: Z01.419] Diagnosis: Primary dysmenorrhea[ICD10: N94.4] Joseph BENJAMIN [employer] CPT-4: 60810 10/17/2017 ([id number]) PREV VISIT EST AGE 18-39 Diagnosis: Encounter for general adult medical examination without abnormal findings[ICD10: Z00.00] Diagnosis: Primary dysmenorrhea[ICD10: N94.4] Diagnosis: Melanocytic nevi of trunk[ICD10: D22.5] Joseph BENJAMIN DO [employer] CPT-4: 65985 10/16/2016 ([id number]) PREV VISIT EST AGE 18-39 Diagnosis: Encounter for general adult medical examination without abnormal findings[ICD10: Z00.00] Diagnosis: Primary dysmenorrhea[ICD10: N94.4] Joseph BENJAMIN DO [employer] CPT-4: 60480 10/14/2015 ([id number]) PREV VISIT EST AGE 18-39 Diagnosis: ROUTINE GYNE EXAM[ICD9: V72.31] Diagnosis: ROUTINE MEDICAL EXAM[ICD9: V70.0] Lynda BENJAMIN DO [employer] CPT-4: 42516 10/26/2014 ([id number]) OFFICE/OUTPATIENT VISIT EST Diagnosis: DYSMENORRHEA[ICD9: 625.3] Joseph BENJAMIN DO [employer] CPT-4: 41536 12/04/2013 ([id number]) PREV VISIT EST AGE 18-39 Diagnosis: ROUTINE MEDICAL EXAM[ICD9: V70.0] Diagnosis: ROUTINE GYNE EXAM[ICD9: V72.31] Diagnosis: Dysmenorrhea[ICD9: 625.3] Joseph BENJAMIN DO [employer] CPT-4: 26598 12/18/2012 ([id number]) SPECIMEN HANDLING OFFICE-LAB Diagnosis: [ICD9: ] Diagnosis: [ICD9: ] Diagnosis: [ICD9: ] Joseph BENJAMIN DO [employer] CPT-4: 79531 12/18/2012 ([id number]) PREV VISIT NEW AGE 18-39 Diagnosis: ROUTINE MEDICAL EXAM[ICD9: V70.0] Diagnosis: Visit for routine program manager rn exam[ICD9: V72.31] Itzel Sumit JOSEPH BENJAMIN DO [employer] [facility] CPT-4: 94110 01/30/2012 ([id number]) SPECIMEN HANDLING Diagnosis: [ICD9: ] Diagnosis: [ICD9: ] Itzel Arana JOSEPH BENJAMIN DO [employer] CPT-4: 72482 01/30/2012 Plan of Care Planned Activity Notes [...] : Z01.419 10/11/2020 Appointment: Joseph Benjamin WPtel: [facility] [facility] Annual Well Visit 10/11/2020 Visit Diagnosis Plan: Encounter for general adult medical examination without abnormal findings Discussion: Mediterranean diet Combination of cardio and weight bearing exercise Gets yearly lab at work ICD-9 : V70.0 ICD-10 : Z00.00 10/09/2019 Visit Diagnosis Plan: Primary dysmenorrhea Discussion: Stable on sprintec ICD-9 : 625.3 ICD-10 : N94.4 10/09/2019 Appointment: Joseph Benjamin WPtel: [address] [place] [address] Annual Well Visit 10/09/2019 Patient Education: Sprintec (28)- Opt[employer] Coupon [id number] [email or web address]/[email or web address]/resource s/getResource/61/cf7c [email or web address].pdf Completed 10/09/2019 Visit Diagnosis Plan: Encounter for general adult medical examination without abnormal findings Discussion: On PNV Mediterranean diet Resume exercise--combo of cardio/weight bearing exercise Recommend updated TdaP ICD-9 : V70.0 ICD-10 : Z00.00 10/09/2018 Appointment: Joseph Benjamin WPtel: [facility] [place] [place] [address] [place] Ref# [id number] for annual and [facility] be covered [facility] [phone] Annual Well Visit 10/09/2018 Visit Diagnosis Plan: Encounter for general adult medical examination without abnormal findings Discussion: Increase Exercise Discussed compression socks for work since sits ICD-9 : V70.0 ICD-10 : Z00.00 10/17/2017 Visit Diagnosis Plan: Encounter for gynecological examination (general) (routine) without abnormal findings Discussion: Pap done Add PNV ICD-9 : V72.31 ICD-10 : Z01.419 10/17/2017 Appointment: Joseph Benjamin WPtel: [address] [place], [place] [phone] Annual Well Visit 10/17/2017 Patient Education: Patient [...] : Z48.02 05/07/2017 Appointment: Joseph Benjamin WPtel: [address] [place], [place] [phone] Suture Removal 05/07/2017 Patient Education: Patient Medication Summary Completed 05/07/2017 Visit Diagnosis Plan: Melanocytic nevi of trunk Discussion: Excised with 4-0 punch biopsy--sutures x2 then steri strips and opsite Return in 10 days for suture removal ICD-9 : 216.5 ICD-10 : D22.5 04/26/2017 Appointment: Joseph Benjamin WPtel: [address] [place], [place] [phone] 8/9 lm~sl ACUTE ILLNESS 04/26/2017 Patient Education: Patient Medication Summary Completed 04/26/2017 Visit Diagnosis Plan: Primary dysmenorrhea Discussion: Continue sprintec ICD-9 : 625.3 ICD-10 : N94.4 10/16/2016 Visit Diagnosis Plan: Melanocytic nevi of trunk Discussion: Return for removal ICD-9 : 216.5 ICD-10 : D22.5 10/16/2016 Appointment: Joseph Benjamin WPtel: [address] [place], [place] [phone] 10/13 lm`sl 10/16 confirmed `sl Annual Well Visit 10/16/2016 Patient Education: Patient Medication Summary Completed 10/16/2016 Visit Plan: Continue sprintec Will plan on Pap smear next year Gets lab done in March at work 10/14/2015 Appointment: Joseph Benjamin WPtel: [address] [place], [place] [phone] 10/13/15 appt confirmed cn Annual Well Visit 10/14/2015 Patient Education: Patient Medication Summary Completed 10/14/2015 Appointment: Lynda Mahoney WPtel: [address] [place] [address] Annual Well Visit 10/26/2014 Patient Education: Patient Medication Summary Completed 10/26/2014 Patient Education: ConsumerCare - Antibiotics, Analgesics 18+, Oral Contraceptives F 18+ Completed 10/26/2014 Visit Plan: Continue sprintec 12/04/2013 Appointment: Joseph Benjamin WPtel: [address] [place], [place] [phone] PAP 12/04/2013 Patient Education: Patient Medication Summary Completed 12/04/2013 Visit Plan: Pap done Continue Sprintec 12/18/2012 Appointment: Joseph Benjamin WPtel: [address] [place], [place] [phone] PAP 12/18/2012 Patient Education: Patient Medication Summary Completed 12/18/2012 Appointment: Itzel Arana WPtel: [address] [place], [place] [phone] NEW PATIENT 01/30/2012 Patient Education: Patient Medication Summary Completed 01/30/2012 Instructions Comment Date . Continue sprintec Will plan on Pap smear next year Gets lab done in March at work 10/14/2015 . Continue sprintec 12/04/2013 . Pap done Continue Sprintec 12/18/2012 Medical Equipment No Medical Equipment data Advance Directives No Advance Directive data
--- OUTSIDE RECORDS SUMMARY | 2023-06-04 10:40 | XMS REPORT | CCD ---
Author Author Danielle Arana APRN Organization JOSEPH Luis DO [facility] Address [address] [place] [address] Phone Care Team Providers Care Tumbling Machine Operator Name Role Phone Joseph Benjamin D.O. PP Unavail able CCM Unavailable Summary Purpose Interface Exchange Insurance Providers Payer name Policy type / Coverage type Covered libertarian ID Effective Begin Date Effective End Date CIGNA Commercial Insurance [id number] Unk nown Family history Grandmother Diagnosis Age At Onset Uterine Cancer Unknown Mother Diagnosis Age At Onset Diabetes mellitus Type 2 Unknown Hypertension Unknown Social History Social History Element Codes Description Effec tive Dates Marital status Unknown Single 01/30/2012 Employment Unknown Currently employed [address]: 700900336 Has never s moked or chewed tobacco [...] Sprintec (28) 0.25 mg-35 mcg tablet RxNorm: 120363 Take 1 tablet by mouth once daily 2 11/27/19 22 Active multivitamin tablet RxNorm: 1 Tablet(s) Oral QD 1 No Stop Date Active Sprintec (28) 0.25 mg-35 mcg tablet RxNorm: 463546 Take 1 tablet by mouth once daily 1 10/11/19 21 Inactive Sprintec (28) 0.25 mg-35 mcg tablet RxNorm: 228073 Take 1 tablet by mouth once daily 1 10/10/19 21 Inactive Sprintec (28) 0.25 mg-35 mcg tablet RxNorm: 154182 TAKE ONE TABLET BY MOUTH ONCE DAILY 0 10/21/19 20 Inactive Sprintec (28) 0.25 mg-35 mcg tablet RxNorm: 619782 TAKE ONE TABLET BY MOUTH ONCE DAILY 9 10/08/19 20 Inactive Sprintec (28) 0.25 mg-35 mcg tablet RxNorm: 698737 1 Tablet(s) PO QD 8 10/15/19 19 Inactive Sprintec (28) 0.25 mg-35 mcg tablet RxNorm: 269221 1 Tablet(s) PO QD 7 10/16/19 18 Inactive Sprintec (28) 0.25 mg-35 mcg tablet RxNorm: 475191 1 Tablet(s) PO QD 6 10/30/19 17 Inactive Sprintec (28) 0.25 mg-35 mcg tablet RxNorm: 909680 1 Tablet(s) PO QD 5 10/13/19 16 Inactive Sprintec (28) 0.25 mg-35 mcg tablet RxNorm: 875878 1 Tablet(s) PO QD 4 10/25/19 15 Inactive Sprintec (28) 0.25 mg-35 mcg tablet RxNorm: 159450 1 Tablet(s) PO QD 4 12/04/19 14 Inactive Sprintec (28) 0.25 mg-35 mcg tablet RxNorm: 505593 1 Tablet(s) PO QD 3 11/19/19 14 Inactive Sprintec (28) 0.25 mg-35 mcg tablet RxNorm: 957245 1 Tablet(s) PO QD 2 12/18/19 13 Inactive Medication Administered No Medication Administered data Immunizations Vaccine Codes Dose Date Status Covid-19 CVX: 207 08/05/2021 Influenza CVX: 141 06/22/2021 Procedures Procedure Codes Date SPECIMEN HANDLING OFFICE-LAB CPT-4: 92422 SPECIMEN HANDLING OFFICE-LAB CPT-4: 41898 EXC TR-EXT B9+TRACE 0.5 CM< CPT-4: 73363 04/26 Vital Signs Date Vital Reason For [...] 01/30/2012 Encounters Encounter Performer Location Codes Date (31818) PREV VISIT EST AGE 18-39 Diagnosis: Encounter for general adult medical examination without abnormal findings[ICD10: Z00.00] Diagnosis: Primary dysmenorrhea[ICD10: N94.4] Joseph BENJAMIN DO [facility] CPT-4: 39629 11/08/2021 ([id number]) PREV VISIT EST AGE 18-39 Diagnosis: Encounter for general adult medical examination without abnormal findings[ICD10: Z00.00] Diagnosis: Encounter for gynecological examination (general) (routine) without abnormal findings[ICD10: Z01.419] Joseph BENJAMIN DO [facility] CPT-4: 79270 10/11/2020 ([id number]) PREV VISIT EST AGE 18-39 Diagnosis: Encounter for general adult medical examination without abnormal findings[ICD10: Z00.00] Diagnosis: Primary dysmenorrhea[ICD10: N94.4] Joseph BENJAMIN DO [facility] CPT-4: 55053 10/09/2019 ([id number]) PREV VISIT EST AGE 18-39 Diagnosis: Encounter for general adult medical examination without abnormal findings[ICD10: Z00.00] Diagnosis: Primary dysmenorrhea[ICD10: N94.4] Joseph BENJAMIN [facility] CPT-4: 41251 10/09/2018 ([id number]) PREV VISIT EST AGE 18-39 Diagnosis: Encounter for general adult medical examination without abnormal findings[ICD10: Z00.00] Diagnosis: Encounter for gynecological examination (general) (routine) without abnormal findings[ICD10: Z01.419] Diagnosis: Primary dysmenorrhea[ICD10: N94.4] Joseph BENJAMIN [facility] CPT-4: 14918 10/17/2017 ([id number]) PREV VISIT EST AGE 18-39 Diagnosis: Encounter for general adult medical examination without abnormal findings[ICD10: Z00.00] Diagnosis: Primary dysmenorrhea[ICD10: N94.4] Diagnosis: Melanocytic nevi of trunk[ICD10: D22.5] Joseph BENJAMIN DO [facility] CPT-4: 66494 10/16/2016 ([id number]) PREV VISIT EST AGE 18-39 Diagnosis: Encounter for general adult medical examination without abnormal findings[ICD10: Z00.00] Diagnosis: Primary dysmenorrhea[ICD10: N94.4] Joseph BENJAMIN DO [facility] CPT-4: 83560 10/14/2015 ([id number]) PREV VISIT EST AGE 18-39 Diagnosis: ROUTINE GYNE EXAM[ICD9: V72.31] Diagnosis: ROUTINE MEDICAL EXAM[ICD9: V70.0] Lynda BENJAMIN DO [facility] CPT-4: 24979 10/26/2014 ([id number]) OFFICE/OUTPATIENT VISIT EST Diagnosis: DYSMENORRHEA[ICD9: 625.3] Joseph BENJAMIN DO [facility] CPT-4: 61396 12/04/2013 ([id number]) PREV VISIT EST AGE 18-39 Diagnosis: ROUTINE MEDICAL EXAM[ICD9: V70.0] Diagnosis: ROUTINE GYNE EXAM[ICD9: V72.31] Diagnosis: Dysmenorrhea[ICD9: 625.3] Joseph BENJAMIN DO [facility] CPT-4: 52563 12/18/2012 ([id number]) SPECIMEN HANDLING OFFICE-LAB Diagnosis: [ICD9: ] Diagnosis: [ICD9: ] Diagnosis: [ICD9: ] Joseph BENJAMIN DO [facility] CPT-4: 06315 12/18/2012 ([id number]) PREV VISIT NEW AGE 18-39 Diagnosis: ROUTINE MEDICAL EXAM[ICD9: V70.0] Diagnosis: Visit for routine yarder 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 exam[ICD9: V72.31] Itzel Sumit JOSEPH BENJAMIN DO [facility] CPT-4: 62911 01/30/2012 ([id number]) SPECIMEN HANDLING Diagnosis: [ICD9: ] Diagnosis: [ICD9: ] Itzel Arana JOSEPH BENJAMIN DO [facility] CPT-4: 77589 01/30/2012 Plan of Care Planned Activity Notes [...] : Z01.419 10/11/2020 Appointment: Joseph Benjamin WPtel: [facility] [address] Annual Well Visit 10/11/2020 Visit Diagnosis Plan: Encounter for general adult medical examination without abnormal findings Discussion: Mediterranean diet Combination of cardio and weight bearing exercise Gets yearly lab at work ICD-9 : V70.0 ICD-10 : Z00.00 10/09/2019 Visit Diagnosis Plan: Primary dysmenorrhea Discussion: Stable on sprintec ICD-9 : 625.3 ICD-10 : N94.4 10/09/2019 Appointment: Joseph Benjamin WPtel: [address] [place] [address] Annual Well Visit 10/09/2019 Patient Education: Sprintec (28)- [employer] Coupon [id number] [email or web address]/resource s/getResource/61/cf7c [email or web address].pdf Completed 10/09/2019 Visit Diagnosis Plan: Encounter for general adult medical examination without abnormal findings Discussion: On PNV Mediterranean diet Resume exercise--combo of cardio/weight bearing exercise Recommend updated TdaP ICD-9 : V70.0 ICD-10 : Z00.00 10/09/2018 Appointment: Joseph Benjamin WPtel: [facility] [place] [address] [place] Ref# [id number] for annual and [facility] be [facility] [phone] Annual Well Visit 10/09/2018 Visit Diagnosis Plan: Encounter for general adult medical examination without abnormal findings Discussion: Increase Exercise Discussed compression socks for work since sits ICD-9 : V70.0 ICD-10 : Z00.00 10/17/2017 Visit Diagnosis Plan: Encounter for gynecological examination (general) (routine) without abnormal findings Discussion: Pap done Add PNV ICD-9 : V72.31 ICD-10 : Z01.419 10/17/2017 Appointment: Joseph Benjamin WPtel: [address] [place], [place] [phone] Annual Well Visit 10/17/2017 Patient Education: Patient [...] : Z48.02 05/07/2017 Appointment: Joseph Benjamin WPtel: [address] [place], [place] [phone] Suture Removal 05/07/2017 Patient Education: Patient Medication Summary Completed 05/07/2017 Visit Diagnosis Plan: Melanocytic nevi of trunk Discussion: Excised with 4-0 punch biopsy--sutures x2 then steri strips and opsite Return in 10 days for suture removal ICD-9 : 216.5 ICD-10 : D22.5 04/26/2017 Appointment: Joseph Benjamin WPtel: [address] [place], [place] [phone] 8/9 lm~sl ACUTE ILLNESS 04/26/2017 Patient Education: Patient Medication Summary Completed 04/26/2017 Visit Diagnosis Plan: Primary dysmenorrhea Discussion: Continue sprintec ICD-9 : 625.3 ICD-10 : N94.4 10/16/2016 Visit Diagnosis Plan: Melanocytic nevi of trunk Discussion: Return for removal ICD-9 : 216.5 ICD-10 : D22.5 10/16/2016 Appointment: Joseph Benjamin WPtel: [address] [place], [place] [phone] 10/13 lm`sl 10/16 confirmed `sl Annual Well Visit 10/16/2016 Patient Education: Patient Medication Summary Completed 10/16/2016 Visit Plan: Continue sprintec Will plan on Pap smear next year Gets lab done in March at work 10/14/2015 Appointment: Joseph Benjamin WPtel: [address] [place], [place] [phone] 10/13/15 appt confirmed cn Annual Well Visit 10/14/2015 Patient Education: Patient Medication Summary Completed 10/14/2015 Appointment: Lynda Mahoney WPtel: [address] [place] [address] Annual Well Visit 10/26/2014 Patient Education: Patient Medication Summary Completed 10/26/2014 Patient Education: ConsumerCare - Antibiotics, Analgesics 18+, Oral Contraceptives F 18+ Completed 10/26/2014 Visit Plan: Continue sprintec 12/04/2013 Appointment: Joseph Benjamin WPtel: [address] [place], [place] [phone] PAP 12/04/2013 Patient Education: Patient Medication Summary Completed 12/04/2013 Visit Plan: Pap done Continue Sprintec 12/18/2012 Appointment: Joseph Benjamin WPtel: [address] [place], [place] [phone] PAP 12/18/2012 Patient Education: Patient Medication Summary Completed 12/18/2012 Appointment: Itzel Arana WPtel: [address] [place], [place] [phone] NEW PATIENT 01/30/2012 Patient Education: Patient Medication Summary Completed 01/30/2012 Instructions Comment Date . Continue sprintec Will plan on Pap smear next year Gets lab done in March at work 10/14/2015 . Continue sprintec 12/04/2013 . Pap done Continue Sprintec 12/18/2012 Medical Equipment No Medical Equipment data Advance Directives No Advance Directive data
--- OUTSIDE RECORDS SUMMARY | 2023-06-04 10:40 | XMS REPORT | CCD ---
Author Author Danielle Arana APRN Organization JOSEPH Luis DO [facility] Address [address] [place] [address] Phone Care Team Providers Care Financial Aid Officer Name Role Phone Joseph Benjamin D.O. PP Unavail able CCM Unavailable Summary Purpose Interface Exchange Insurance Providers Payer name Policy type / Coverage type Covered alliance party ID Effective Begin Date Effective End Date CIGNA Commercial Insurance [id number] Unk nown Family history Grandmother Diagnosis Age At Onset Uterine Cancer Unknown Mother Diagnosis Age At Onset Diabetes mellitus Type 2 Unknown Hypertension Unknown Social History Social History Element Codes Description Effec tive Dates Marital status Unknown Single 01/30/2012 Employment Unknown Currently employed [address]: 557681686 Has never s moked or chewed tobacco [...] Sprintec (28) 0.25 mg-35 mcg tablet RxNorm: 870863 Take 1 tablet by mouth once daily 2 10/23/19 23 Inactive Sprintec (28) 0.25 mg-35 mcg tablet RxNorm: 930225 Take 1 tablet by mouth once daily 2 11/16/19 22 Inactive Sprintec (28) 0.25 mg-35 mcg tablet RxNorm: 431624 Take 1 tablet by mouth once daily 2 10/30/19 22 Inactive multivitamin tablet RxNorm: 1 Tablet(s) Oral QD 1 No Stop Date Active Sprintec (28) 0.25 mg-35 mcg tablet RxNorm: 928889 Take 1 tablet by mouth once daily 1 10/11/19 21 Inactive Sprintec (28) 0.25 mg-35 mcg tablet RxNorm: 362978 Take 1 tablet by mouth once daily 1 10/10/19 21 Inactive Sprintec (28) 0.25 mg-35 mcg tablet RxNorm: 129406 TAKE ONE TABLET BY MOUTH ONCE DAILY 0 10/21/19 20 Inactive Sprintec (28) 0.25 mg-35 mcg tablet RxNorm: 728524 TAKE ONE TABLET BY MOUTH ONCE DAILY 9 10/08/19 20 Inactive Sprintec (28) 0.25 mg-35 mcg tablet RxNorm: 758092 1 Tablet(s) PO QD 8 10/15/19 19 Inactive Sprintec (28) 0.25 mg-35 mcg tablet RxNorm: 434628 1 Tablet(s) PO QD 7 10/16/19 18 Inactive Sprintec (28) 0.25 mg-35 mcg tablet RxNorm: 419551 1 Tablet(s) PO QD 6 10/30/19 17 Inactive Sprintec (28) 0.25 mg-35 mcg tablet RxNorm: 613361 1 Tablet(s) PO QD 5 10/13/19 16 Inactive Sprintec (28) 0.25 mg-35 mcg tablet RxNorm: 631746 1 Tablet(s) PO QD 4 10/25/19 15 Inactive Sprintec (28) 0.25 mg-35 mcg tablet RxNorm: 716370 1 Tablet(s) PO QD 4 12/04/19 14 Inactive Sprintec (28) 0.25 mg-35 mcg tablet RxNorm: 657458 1 Tablet(s) PO QD 3 11/19/19 14 Inactive Sprintec (28) 0.25 mg-35 mcg tablet RxNorm: 449462 1 Tablet(s) PO QD 2 12/18/19 13 Inactive Medication Administered No Medication Administered data Immunizations Vaccine Codes Dose Date Status Covid-19 (Adult) CVX: 217 08/17/2022 Covid-19 CVX: 207 08/05/2021 Influenza CVX: 141 06/22/2021 Procedures Procedure Codes Date URINE TEST CPT-4: 24238 10/24/2022 SPECIMEN HANDLING OFFICE-LAB CPT-4: 39537 SPECIMEN HANDLING OFFICE-LAB CPT-4: 52308 EXC TR-EXT B9+TRACE 0.5 CM< CPT-4: 08306 04/26 Vital Signs Date Vital Reason For [...] Encounter Performer Location Location Address Codes Date ([id number]) OFFICE/OUTPATIENT VISIT EST Diagnosis: with 5 completed weeks gestation[ICD10: Z3A.01] Diagnosis: Missed menses[ICD10: N92.6] Joseph BENJAMIN [facility] [address] [place] [address] CPT-4: 90147 3 (55014) PREV VISIT EST AGE 18-39 Diagnosis: Encounter for general adult medical examination without abnormal findings[ICD10: Z00.00] Diagnosis: Primary dysmenorrhea[ICD10: N94.4] Joseph BENJAMIN [facility] [address] [place] [address] CPT-4: 16820 2 ([id number]) PREV VISIT EST AGE 18-39 Diagnosis: Encounter for general adult medical examination without abnormal findings[ICD10: Z00.00] Diagnosis: Encounter for gynecological examination (general) (routine) without abnormal findings[ICD10: Z01.419] Joseph BENJAMIN [facility] [address] [place] [address] CPT-4: 42072 1 (24576) PREV VISIT EST AGE 18-39 Diagnosis: Encounter for general adult medical examination without abnormal findings[ICD10: Z00.00] Diagnosis: Primary dysmenorrhea[ICD10: N94.4] Joseph BENJAMIN [facility] [address] [place] [address] CPT-4: 69665 0 (55647) PREV VISIT EST AGE 18-39 Diagnosis: Encounter for general adult medical examination without abnormal findings[ICD10: Z00.00] Diagnosis: Primary dysmenorrhea[ICD10: N94.4] Joseph BENJAMIN [address] [address] CPT-4: 52703 9 ([id number]) PREV VISIT EST AGE 18-39 Diagnosis: Encounter for general adult medical examination without abnormal findings[ICD10: Z00.00] Diagnosis: Encounter for gynecological examination (general) (routine) without abnormal findings[ICD10: Z01.419] Diagnosis: Primary dysmenorrhea[ICD10: N94.4] Joseph BENJAMIN [address] [address] CPT-4: 61285 8 (96344) PREV VISIT EST AGE 18-39 Diagnosis: Encounter for general adult medical examination without abnormal findings[ICD10: Z00.00] Diagnosis: Primary dysmenorrhea[ICD10: N94.4] Diagnosis: Melanocytic nevi of trunk[ICD10: D22.5] Joseph BENJAMIN DO [address] [address] CPT-4: 52416 7 (80947) PREV VISIT EST AGE 18-39 Diagnosis: Encounter for general adult medical examination without abnormal findings[ICD10: Z00.00] Diagnosis: Primary dysmenorrhea[ICD10: N94.4] Joseph BENJAMIN DO [address] [address] CPT-4: 38272 6 (06558) PREV VISIT EST AGE 18-39 Diagnosis: ROUTINE GYNE EXAM[ICD9: V72.31] Diagnosis: ROUTINE MEDICAL EXAM[ICD9: V70.0] Lynda Mahoney JOSEPH BENJAMIN [address] [address] CPT-4: 95192 5 ([id number]) OFFICE/OUTPATIENT VISIT EST Diagnosis: DYSMENORRHEA[ICD9: 625.3] Josephjoie BENJAMIN DO [employer] [address] [place] [address] CPT-4: 64544 4 (25535) PREV VISIT EST AGE 18-39 Diagnosis: ROUTINE MEDICAL EXAM[ICD9: V70.0] Diagnosis: ROUTINE GYNE EXAM[ICD9: V72.31] Diagnosis: Dysmenorrhea[ICD9: 625.3] Joseph Delgadorosi PALOMOJOSEPHMERVAT BENJAMIN DO [employer] [address] [place] [address] CPT-4: 13801 3 (09236) SPECIMEN HANDLING OFFICE-LAB Diagnosis: [ICD9: ] Diagnosis: [ICD9: ] Diagnosis: [ICD9: ] Joseph Kaplanlita JOSEPH SBrii YULIA PERKINS [employer] [address] [place] [address] CPT-4: 52163 3 ([id number]) PREV VISIT NEW AGE 18-39 Diagnosis: ROUTINE MEDICAL EXAM[ICD9: V70.0] Diagnosis: Visit for routine cardiology clinical consultant exam[ICD9: V72.31] Itzel RUIZ ArturoBrii YULIA PERKINS [employer] [address] [place] [address] CPT-4: 10033 2 (49447) SPECIMEN HANDLING Diagnosis: [ICD9: ] Diagnosis: [ICD9: ] Itzel Arana JOSEPHMERVAT BENJAMIN DO [employer] [address] [place] [address] CPT-4: 61946 2 Plan of Care Planned Activity Notes Codes Status Date Visit Diagnosis Plan: with 5 completed weeks gestation Discussion: On a PNV Discussed no NSAIDs, no alcohol, meds to avoid Can use TUMs prn Can use tylenol prn Referral to OB Due date June 25 by dates ICD-9 : V22.2 ICD-10 : Z3A.01 10/24/2022 Appointment: Joseph Benjamin WPtel: [phone] [phone] ACUTE ILLNESS 10/24/2022 Visit Diagnosis Plan: Encounter [...] : N94.4 11/08/2021 Appointment: Joseph Benjamin WPtel: [facility]2 [address] Annual Well Visit 11/08/2021 Visit Diagnosis [...] : Z01.419 10/11/2020 Appointment: Joseph Benjamin WPtel: [facility] Annual Well Visit 10/11/2020 Visit Diagnosis Plan: Encounter for general adult medical examination without abnormal findings Discussion: Mediterranean diet Combination of cardio and weight bearing exercise Gets yearly lab at work ICD-9 : V70.0 ICD-10 : Z00.00 10/09/2019 Visit Diagnosis Plan: Primary dysmenorrhea Discussion: Stable on sprintec ICD-9 : 625.3 ICD-10 : N94.4 10/09/2019 Appointment: Joseph Benjamin WPtel: [phone] [phone] Annual Well Visit 10/09/2019 Patient Education: Sprintec (28)- OptimizeRX Coupon [phone] https://www.[employer]. Valopaa/samplemd/resource s/getResource/61/cf7c [email or web address]-qdk0-8332-vdaa-8 [email or web address].pdf Completed 10/09/2019 Visit Diagnosis Plan: Encounter for general adult medical examination without abnormal findings Discussion: On PNV Mediterranean diet Resume exercise--combo of cardio/weight bearing exercise Recommend updated TdaP ICD-9 : V70.0 ICD-10 : Z00.00 10/09/2018 Appointment: Joseph Benjamin WPtel: [phone] [facility] Ref# [id number] for annual and will be covered per [employer]. [phone] Annual Well Visit 10/09/2018 Visit Diagnosis Plan: Encounter for general adult medical examination without abnormal findings Discussion: Increase Exercise Discussed compression socks for work since sits ICD-9 : V70.0 ICD-10 : Z00.00 10/17/2017 Visit Diagnosis Plan: Encounter for gynecological examination (general) (routine) without abnormal findings Discussion: Pap done Add PNV ICD-9 : V72.31 ICD-10 : Z01.419 10/17/2017 Appointment: Joseph Benjamin WPtel: [facility] Annual Well Visit 10/17/2017 Patient Education: Patient [...] Z48.02 05/07/2017 Appointment: Joseph Benjamin WPtel: [phone] [phone] Suture Removal 05/07/2017 Patient Education: Patient Medication Summary Completed 05/07/2017 Visit Diagnosis Plan: Melanocytic nevi of trunk Discussion: Excised with 4-0 punch biopsy--sutures x2 then steri strips and opsite Return in 10 days for suture removal ICD-9 : 216.5 ICD-10 : D22.5 04/26/2017 Appointment: Joseph Benjamin WPtel: [address] [place], [place] [phone] 8/9 lm~sl ACUTE ILLNESS 04/26/2017 Patient Education: Patient Medication Summary Completed 04/26/2017 Visit Diagnosis Plan: Primary dysmenorrhea Discussion: Continue sprintec ICD-9 : 625.3 ICD-10 : N94.4 10/16/2016 Visit Diagnosis Plan: Melanocytic nevi of trunk Discussion: Return for removal ICD-9 : 216.5 ICD-10 : D22.5 10/16/2016 Appointment: Joseph Benjamin WPtel: [address] [place], [place] [phone] 10/13 lm`sl 10/16 confirmed `sl Annual Well Visit 10/16/2016 Patient Education: Patient Medication Summary Completed 10/16/2016 Visit Plan: Continue sprintec Will plan on Pap smear next year Gets lab done in March at work 10/14/2015 Appointment: Joseph Benjamin WPtel: [address] [place], [place] [phone] 10/13/15 appt confirmed cn Annual Well Visit 10/14/2015 Patient Education: Patient Medication Summary Completed 10/14/2015 Appointment: Lynda Mahoney WPtel: [address] [place], [place] [id number] Annual Well Visit 10/26/2014 Patient Education: Patient Medication Summary Completed 10/26/2014 Patient Education: ConsumerCare - Antibiotics, Analgesics 18+, Oral Contraceptives F 18+ Completed 10/26/2014 Visit Plan: Continue sprintec 12/04/2013 Appointment: Joseph Benjamin WPtel: [address] [place], [place] [phone] US PAP 12/04/2013 Patient Education: Patient Medication Summary Completed 12/04/2013 Visit Plan: Pap done Continue Sprintec 12/18/2012 [facility]ment[facility] [phone] [facility] [facility] 12/18/2012 Patient Education: Patient Medication Summary Completed 12/18/2012 [facility] [phone] [facility] [facility] 01/30/2012 Patient Education: Patient Medication Summary Completed 01/30/2012 Instructions Comment Date . Continue sprintec Will plan on Pap smear next year Gets lab done in March at work 10/14/2015 . Continue sprintec 12/04/2013 . Pap done Continue Sprintec 12/18/2012 Medical Equipment No Medical Equipment data Advance Directives No Advance Directive data
--- OUTSIDE RECORDS SUMMARY | 2023-06-04 10:41 | XMS REPORT | CCD ---
Author Author Danielle Arana APRN Organization JOSEPH Luis DO [facility] Address [address] [place] [address] Phone Care Team Providers Care Embedded Case Manager Name Role Phone Joseph Benjamin D.O., PP Unavail able CCM Unavailable Summary Purpose Interface Exchange Insurance Providers Payer name Policy type / Coverage type Covered democrat ID Effective Begin Date Effective End Date CIGNA Commercial Insurance [id number] Unk nown Family history Grandmother Diagnosis Age At Onset Uterine Cancer Unknown Mother Diagnosis Age At Onset Diabetes mellitus Type 2 Unknown Hypertension Unknown Social History Social History Element Codes Description Effec tive Dates Marital status Unknown Single 01/30/2012 Employment Unknown Currently employed [address]: [id number] Has never s moked or chewed tobacco [...] findings ICD-9: V70.0 ICD-10: Z00.00 10/26/2014 Active Primary dysmenorrhea ICD-9: 625.3 ICD-10: N94.4 12/18/2012 Active Encounter for gynecological examination (general) (routine) without abnormal findings ICD-9: V72.31 ICD-10: Z01.419 10/17/2017 Active Encounter for removal of sutures ICD-9: V58.32 ICD-10: Z48.02 05/07/2017 Active Melanocytic nevi of trunk ICD-9: 216.5 ICD-10: D22.5 10/16/2016 Active ROUTINE GYNE EXAM ICD-9: V72.31 10/26/2014 Active ROUTINE MEDICAL EXAM ICD-9: V70.0 10/26/2014 Active Dysmenorrhea ICD-9: 625.3 12/18/2012 Active Medications Medication Codes Instructions Start Date Stop Date Status Fill Instructions Sprintec (28) 0.25 mg-35 mcg tablet RxNorm: 526615 TAKE ONE TABLET BY MOUTH ONCE DAILY 0 10/21/19 20 Active Sprintec (28) 0.25 mg-35 mcg tablet RxNorm: 096589 TAKE ONE TABLET BY MOUTH ONCE DAILY 9 10/08/19 20 Inactive Sprintec (28) 0.25 mg-35 mcg tablet RxNorm: 235188 1 Tablet(s) PO QD 8 10/15/19 19 Inactive Sprintec (28) 0.25 mg-35 mcg tablet RxNorm: 121939 1 Tablet(s) PO QD 7 10/16/19 18 Inactive Sprintec (28) 0.25 mg-35 mcg tablet RxNorm: 079497 1 Tablet(s) PO QD 6 10/30/19 17 Inactive Sprintec (28) 0.25 mg-35 mcg tablet RxNorm: 398241 1 Tablet(s) PO QD 5 10/13/19 16 Inactive Sprintec (28) 0.25 mg-35 mcg tablet RxNorm: 768022 1 Tablet(s) PO QD 4 10/25/19 15 Inactive Sprintec (28) 0.25 mg-35 mcg tablet RxNorm: 613056 1 Tablet(s) PO QD 4 12/04/19 14 Inactive Sprintec (28) 0.25 mg-35 mcg tablet RxNorm: 884953 1 Tablet(s) PO QD 3 11/19/19 14 Inactive Sprintec (28) 0.25 mg-35 mcg tablet RxNorm: 770763 1 Tablet(s) PO QD 2 12/18/19 13 Inactive Medication Administered No Medication Administered data Procedures Procedure Codes Date SPECIMEN HANDLING OFFICE-LAB CPT-4: 30297 EXC TR-EXT B9+TRACE 0.5 CM< CPT-4: 49626 04/26 Vital Signs Date Vital Reason For Visit Reason For Visit Effective Dates Notes well woman exam (18-39 years) 10/09/2019 An [...] 01/30/2012 Encounters Encounter Performer Location Codes Date (16150) PREV VISIT EST AGE 18-39 Diagnosis: Encounter for general adult medical examination without abnormal findings[ICD10: Z00.00] Diagnosis: Primary dysmenorrhea[ICD10: N94.4] Joseph RUIZ [employer] CPT-4: 16543 10/09/2019 (10147) PREV VISIT EST AGE 18-39 Diagnosis: Encounter for general adult medical examination without abnormal findings[ICD10: Z00.00] Diagnosis: Primary dysmenorrhea[ICD10: N94.4] Joseph RUIZ [employer] CPT-4: 39504 10/09/2018 ([id number]) PREV VISIT EST AGE 18-39 Diagnosis: Encounter for general adult medical examination without abnormal findings[ICD10: Z00.00] Diagnosis: Encounter for gynecological examination (general) (routine) without abnormal findings[ICD10: Z01.419] Diagnosis: Primary dysmenorrhea[ICD10: N94.4] Joseph Dunn [employer] CPT-4: 09747 10/17/2017 ([id number]) PREV VISIT EST AGE 18-39 Diagnosis: Encounter for general adult medical examination without abnormal findings[ICD10: Z00.00] Diagnosis: Primary dysmenorrhea[ICD10: N94.4] Diagnosis: Melanocytic nevi of trunk[ICD10: D22.5] Joseph BENJAMIN DO [facility] CPT-4: 26949 10/16/2016 ([id number]) PREV VISIT EST AGE 18-39 Diagnosis: Encounter for general adult medical examination without abnormal findings[ICD10: Z00.00] Diagnosis: Primary dysmenorrhea[ICD10: N94.4] Joseph BENJAMIN DO [facility] CPT-4: 28994 10/14/2015 ([id number]) PREV VISIT EST AGE 18-39 Diagnosis: ROUTINE GYNE EXAM[ICD9: V72.31] Diagnosis: ROUTINE MEDICAL EXAM[ICD9: V70.0] Lynda BENJAMIN DO [employer] [facility] CPT-4: 92487 10/26/2014 ([id number]) OFFICE/OUTPATIENT VISIT EST Diagnosis: DYSMENORRHEA[ICD9: 625.3] Joseph BENJAMIN DO [employer] [facility] CPT-4: 23950 12/04/2013 ([id number]) PREV VISIT EST AGE 18-39 Diagnosis: ROUTINE MEDICAL EXAM[ICD9: V70.0] Diagnosis: ROUTINE GYNE EXAM[ICD9: V72.31] Diagnosis: Dysmenorrhea[ICD9: 625.3] Joseph BENJAMIN DO [employer] [facility] CPT-4: 56279 12/18/2012 (04401) SPECIMEN HANDLING OFFICE-LAB Diagnosis: [ICD9: ] Diagnosis: [ICD9: ] Diagnosis: [ICD9: ] Joseph BENJAMIN DO [employer] [facility] CPT-4: 82856 12/18/2012 (30372) PREV VISIT NEW AGE 18-39 Diagnosis: ROUTINE MEDICAL EXAM[ICD9: V70.0] Diagnosis: 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[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: V72.31] Itzel Arana JOSEPH BENJAMIN DO [employer] [facility] CPT-4: 37190 01/30/2012 (67783) SPECIMEN HANDLING Diagnosis: [ICD9: ] Diagnosis: [ICD9: ] Itzel PALOMOSKY BENJAMIN DO [employer] [facility] CPT-4: 32158 01/30/2012 Plan of Care Planned Activity Notes Codes Status Date Visit Diagnosis Plan: Primary dysmenorrhea Discussion: Stable on sprintec ICD-9 : 625.3 ICD-10 : N94.4 10/09/2019 Visit Diagnosis Plan: Encounter for general adult medical examination without abnormal findings Discussion: Mediterranean diet Combination of cardio and weight bearing exercise Gets yearly lab at work ICD-9 : V70.0 ICD-10 : Z00.00 10/09/2019 Patient Education: Sprintec (28)- OptimizeRX Coupon [phone] https://www.[employer]/Dime/resource s/getResource/61/cf7c [email or web address]-[email or web address].pdf Completed 10/09/2019 Visit Diagnosis Plan: Encounter for general adult medical examination without abnormal findings Discussion: On PNV Mediterranean diet Resume exercise--combo of cardio/weight bearing exercise Recommend updated TdaP ICD-9 : V70.0 ICD-10 : Z00.00 10/09/2018 Appointment: Joseph Benjamin WPtel: [phone] Ref# [phone] for annual and will be covered per [employer]. [phone] Annual Well Visit 10/09/2018 Visit Diagnosis Plan: Encounter for gynecological examination (general) (routine) without abnormal findings Discussion: Pap done Add PNV ICD-9 : V72.31 ICD-10 : Z01.419 10/17/2017 Visit Diagnosis Plan: Encounter for general adult medical examination without abnormal findings Discussion: Increase Exercise Discussed compression socks for work since sits ICD-9 : V70.0 ICD-10 : Z00.00 10/17/2017 Appointment: Joseph Benjamin WPtel: [phone] [facility] Annual Well Visit 10/17/2017 Patient Education: [...] : Z48.02 05/07/2017 Appointment: Joseph Benjamin WPtel: [address] [place], [place] [phone] Suture Removal 05/07/2017 Patient Education: Patient Medication Summary Completed 05/07/2017 Visit Diagnosis Plan: Melanocytic nevi of trunk Discussion: Excised with 4-0 punch biopsy--sutures x2 then steri strips and opsite Return in 10 days for suture removal ICD-9 : 216.5 ICD-10 : D22.5 04/26/2017 Appointment: Joseph Benjamin WPtel: [address] [place] [address] 8/ lm~sl ACUTE ILLNESS 04/26/2017 Patient Education: Patient Medication Summary Completed 04/26/2017 Visit Diagnosis Plan: Melanocytic nevi of trunk Discussion: Return for removal ICD-9 : 216.5 ICD-10 : D22.5 10/16/2016 Visit Diagnosis Plan: Primary dysmenorrhea Discussion: Continue sprintec ICD-9 : 625.3 ICD-10 : N94.4 10/16/2016 Appointment: Joseph Benjamin WPtel: [address] [place] [address] 10/13 lm`sl 10/16 confirmed `sl Annual Well Visit 10/16/2016 Patient Education: Patient Medication Summary Completed 10/16/2016 Visit Plan: Continue sprintec Will plan on Pap smear next year Gets lab done in March at work 10/14/2015 Appointment: Joseph Benjamin WPtel: [address] [place], [place] [phone] 10/13/15 appt confirmed cn Annual Well Visit 10/14/2015 Patient Education: Patient Medication Summary Completed 10/14/2015 Appointment: Lynda Mahoney WPtel: [address] [place], [place] [phone] Annual Well Visit 10/26/2014 Patient Education: Patient Medication Summary Completed 10/26/2014 Patient Education: ConsumerCare - Antibiotics, Analgesics 18+, Oral Contraceptives F 18+ Completed 10/26/2014 Visit Plan: Continue sprintec 12/04/2013 Appointment: Joseph Benjamin WPtel: [address] [place], [place] [phone] PAP 12/04/2013 Patient Education: Patient Medication Summary Completed 12/04/2013 Visit Plan: Pap done Continue Sprintec 12/18/2012 Appointment: Joseph Benjamin WPtel: [address] [place], [place] [phone] PAP 12/18/2012 Patient Education: Patient Medication Summary Completed 12/18/2012 Appointment: Itzel Arana WPtel: [address] [place], [place] [phone] NEW PATIENT 01/30/2012 Patient Education: Patient Medication Summary Completed 01/30/2012 Instructions Comment . Continue sprintec Will plan on Pap smear next year Gets lab done in March at work . Continue sprintec . Pap done Continue Sprintec Medical Equipment No Medical Equipment data Advance Directives No Advance Directive data
--- OUTSIDE RECORDS SUMMARY | 2023-06-04 10:41 | XMS REPORT | CCD ---
Author Author Danielle Arana APRN Organization JOSEPH Luis DO [facility] Address [address] [place] [address] Phone Care Team Providers Care Day Care Teacher Name Role Phone Joseph Benjamin D.O., PP Unavail able CCM Unavailable Summary Purpose Interface Exchange Insurance Providers Payer name Policy type / Coverage type Covered republican ID Effective Begin Date Effective End Date CIGNA Commercial Insurance [id number] Unk nown Family history Grandmother Diagnosis Age At Onset Uterine Cancer Unknown Mother Diagnosis Age At Onset Diabetes mellitus Type 2 Unknown Hypertension Unknown Social History Social History Element Codes Description Effec tive Dates Marital status Unknown Single 01/30/2012 Employment Unknown Currently employed [address]: 567679163 Has never s moked or chewed tobacco [...] Sprintec (28) 0.25 mg-35 mcg tablet RxNorm: 355848 TAKE ONE TABLET BY MOUTH ONCE DAILY 0 10/21/19 20 Active Sprintec (28) 0.25 mg-35 mcg tablet RxNorm: 825368 TAKE ONE TABLET BY MOUTH ONCE DAILY 9 10/08/19 20 Inactive Sprintec (28) 0.25 mg-35 mcg tablet RxNorm: 463524 1 Tablet(s) PO QD 8 10/15/19 19 Inactive Sprintec (28) 0.25 mg-35 mcg tablet RxNorm: 192630 1 Tablet(s) PO QD 7 10/16/19 18 Inactive Sprintec (28) 0.25 mg-35 mcg tablet RxNorm: 489325 1 Tablet(s) PO QD 6 10/30/19 17 Inactive Sprintec (28) 0.25 mg-35 mcg tablet RxNorm: 913861 1 Tablet(s) PO QD 5 10/13/19 16 Inactive Sprintec (28) 0.25 mg-35 mcg tablet RxNorm: 275860 1 Tablet(s) PO QD 4 10/25/19 15 Inactive Sprintec (28) 0.25 mg-35 mcg tablet RxNorm: 971994 1 Tablet(s) PO QD 4 12/04/19 14 Inactive Sprintec (28) 0.25 mg-35 mcg tablet RxNorm: 599293 1 Tablet(s) PO QD 3 11/19/19 14 Inactive Sprintec (28) 0.25 mg-35 mcg tablet RxNorm: 304472 1 Tablet(s) PO QD 2 12/18/19 13 Inactive Medication Administered No Medication Administered data Procedures Procedure Codes Date SPECIMEN HANDLING OFFICE-LAB CPT-4: 33199 EXC TR-EXT B9+TRACE 0.5 CM< CPT-4: 92784 04/26 Vital Signs Date Vital Reason For [...] 01/30/2012 Encounters Encounter Performer Location Codes Date (64559) PREV VISIT EST AGE 18-39 Diagnosis: Encounter for general adult medical examination without abnormal findings[ICD10: Z00.00] Diagnosis: Primary dysmenorrhea[ICD10: N94.4] Joseph [employer] CPT-4: 03760 10/09/2019 ([id number]) PREV VISIT EST AGE 18-39 Diagnosis: Encounter for general adult medical examination without abnormal findings[ICD10: Z00.00] Diagnosis: Primary dysmenorrhea[ICD10: N94.4] Joseph RUIZ [employer] CPT-4: 38029 10/09/2018 ([id number]) PREV VISIT EST AGE 18-39 Diagnosis: Encounter for general adult medical examination without abnormal findings[ICD10: Z00.00] Diagnosis: Encounter for gynecological examination (general) (routine) without abnormal findings[ICD10: Z01.419] Diagnosis: Primary dysmenorrhea[ICD10: N94.4] Joseph Dunn [employer] CPT-4: 31186 10/17/2017 ([id number]) PREV VISIT EST AGE 18-39 Diagnosis: Encounter for general adult medical examination without abnormal findings[ICD10: Z00.00] Diagnosis: Primary dysmenorrhea[ICD10: N94.4] Diagnosis: Melanocytic nevi of trunk[ICD10: D22.5] Joseph BENJAMIN DO [facility] CPT-4: 68042 10/16/2016 ([id number]) PREV VISIT EST AGE 18-39 Diagnosis: Encounter for general adult medical examination without abnormal findings[ICD10: Z00.00] Diagnosis: Primary dysmenorrhea[ICD10: N94.4] Joseph BENJAMIN DO [facility] CPT-4: 21218 10/14/2015 ([id number]) PREV VISIT EST AGE 18-39 Diagnosis: ROUTINE GYNE EXAM[ICD9: V72.31] Diagnosis: ROUTINE MEDICAL EXAM[ICD9: V70.0] Lynda BENJAMIN DO [employer] CPT-4: 58682 10/26/2014 ([id number]) OFFICE/OUTPATIENT VISIT EST Diagnosis: DYSMENORRHEA[ICD9: 625.3] Joseph BENJAMIN DO [employer] CPT-4: 69224 12/04/2013 ([id number]) PREV VISIT EST AGE 18-39 Diagnosis: ROUTINE MEDICAL EXAM[ICD9: V70.0] Diagnosis: ROUTINE GYNE EXAM[ICD9: V72.31] Diagnosis: Dysmenorrhea[ICD9: 625.3] Joseph BENJAMIN DO [employer] CPT-4: 39031 12/18/2012 ([id number]) SPECIMEN HANDLING OFFICE-LAB Diagnosis: [ICD9: ] Diagnosis: [ICD9: ] Diagnosis: [ICD9: ] Joseph BENJAMIN DO [employer] CPT-4: 65778 12/18/2012 ([id number]) PREV VISIT NEW AGE 18-39 Diagnosis: ROUTINE MEDICAL EXAM[ICD9: V70.0] Diagnosis: 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 security 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[ICD9: V72.31] Itzel Arana JOSEPH BENJAMIN DO [employer] CPT-4: 92269 01/30/2012 ([id number]) SPECIMEN HANDLING Diagnosis: [ICD9: ] Diagnosis: [ICD9: ] Itzel PALOMOSKY BENJAMIN DO [employer] CPT-4: 55991 01/30/2012 Plan of Care Planned Activity Notes Codes Status Date Visit Diagnosis Plan: Encounter for general adult medical examination without abnormal findings Discussion: Mediterranean diet Combination of cardio and weight bearing exercise Gets yearly lab at work ICD-9 : V70.0 ICD-10 : Z00.00 10/09/2019 Visit Diagnosis Plan: Primary dysmenorrhea Discussion: Stable on sprintec ICD-9 : 625.3 ICD-10 : N94.4 10/09/2019 Patient Education: Sprintec (28)- Optimize[employer] Coupon [id number] [email or web address]://www.[employer]/resource s/getResource/61/cf7c [email or web address].pdf Completed 10/09/2019 Visit Diagnosis Plan: Encounter for general adult medical examination without abnormal findings Discussion: On PNV Mediterranean diet Resume exercise--combo of cardio/weight bearing exercise Recommend updated TdaP ICD-9 : V70.0 ICD-10 : Z00.00 10/09/2018 Appointment: Joseph Benjamin WPtel: [address] Ref# [id number] for annual and will be covered per [employer]. [phone] Annual Well Visit 10/09/2018 Visit Diagnosis Plan: Encounter for general adult medical examination without abnormal findings Discussion: Increase Exercise Discussed compression socks for work since sits ICD-9 : V70.0 ICD-10 : Z00.00 10/17/2017 Visit Diagnosis Plan: Encounter for gynecological examination (general) (routine) without abnormal findings Discussion: Pap done Add PNV ICD-9 : V72.31 ICD-10 : Z01.419 10/17/2017 Appointment: Joseph Benjamin WPtel: [address] [facility] Annual Well Visit 10/17/2017 Patient Education: Patient [...] V58.32 ICD-10 : Z48.02 05/07/2017 Appointment: Joseph Bejnamin WPtel: [address] [place], [place] [phone] Suture Removal 05/07/2017 Patient Education: Patient Medication Summary Completed 05/07/2017 Visit Diagnosis Plan: Melanocytic nevi of trunk Discussion: Excised with 4-0 punch biopsy--sutures x2 then steri strips and opsite Return in 10 days for suture removal ICD-9 : 216.5 ICD-10 : D22.5 04/26/2017 Appointment: Joseph Benjamin WPtel: [address] [place], [place] [phone] 8/ lm~sl ACUTE ILLNESS 04/26/2017 Patient Education: Patient Medication Summary Completed 04/26/2017 Visit Diagnosis Plan: Primary dysmenorrhea Discussion: Continue sprintec ICD-9 : 625.3 ICD-10 : N94.4 10/16/2016 Visit Diagnosis Plan: Melanocytic nevi of trunk Discussion: Return for removal ICD-9 : 216.5 ICD-10 : D22.5 10/16/2016 Appointment: Joseph Benjamin WPtel: [address] [place], [place] [address] 10/13 lm`sl 10/16 confirmed `sl Annual Well Visit 10/16/2016 Patient Education: Patient Medication Summary Completed 10/16/2016 Visit Plan: Continue sprintec Will plan on Pap smear next year Gets lab done in March at work 10/14/2015 Appointment: Joseph Benjamin WPtel: [address] [place], [place] [phone] 10/13/15 appt confirmed cn Annual Well Visit 10/14/2015 Patient Education: Patient Medication Summary Completed 10/14/2015 Appointment: Lynda Mahoney WPtel: [address] [place], [place] [phone] Annual Well Visit 10/26/2014 Patient Education: Patient Medication Summary Completed 10/26/2014 Patient Education: ConsumerCare - Antibiotics, Analgesics 18+, Oral Contraceptives F 18+ Completed 10/26/2014 Visit Plan: Continue sprintec 12/04/2013 Appointment: Joseph Benjamin WPtel: [address] [place], [place] [phone] PAP 12/04/2013 Patient Education: Patient Medication Summary Completed 12/04/2013 Visit Plan: Pap done Continue Sprintec 12/18/2012 Appointment: Joseph Benjamin WPtel: [address] [place], [place] [phone] PAP 12/18/2012 Patient Education: Patient Medication Summary Completed 12/18/2012 Appointment: Itzel Arana WPtel: [address] [place], [place] [phone] NEW PATIENT 01/30/2012 Patient Education: Patient Medication Summary Completed 01/30/2012 Instructions Comment . Continue sprintec Will plan on Pap smear next year Gets lab done in March at work . Continue sprintec . Pap done Continue Sprintec Medical Equipment No Medical Equipment data Advance Directives No Advance Directive data
--- OUTSIDE RECORDS SUMMARY | 2023-06-04 10:41 | XMS REPORT | CCD ---
Author Author Danielle Arana APRN Organization JOSEPH Luis DO [facility] Address [address] [place] [address] Phone Care Team Providers Care Draw Frame Operator Name Role Phone Joseph Benjamin D.O. PP Unavail able CCM Unavailable Summary Purpose Interface Exchange Insurance Providers Payer name Policy type / Coverage type Covered democrat ID Effective Begin Date Effective End Date CIGNA Commercial Insurance [id number] Unk nown Family history Grandmother Diagnosis Age At Onset Uterine Cancer Unknown Mother Diagnosis Age At Onset Diabetes mellitus Type 2 Unknown Hypertension Unknown Social History Social History Element Codes Description Effec tive Dates Marital status Unknown Single 01/30/2012 Employment Unknown Currently employed [address]: 254175586 Has never s moked or chewed tobacco [...] Sprintec (28) 0.25 mg-35 mcg tablet RxNorm: 386562 Take 1 tablet by mouth once daily 1 09/12/20 21 Active multivitamin tablet RxNorm: 1 Tablet(s) Oral QD 1 No Stop Date Active Sprintec (28) 0.25 mg-35 mcg tablet RxNorm: 088101 Take 1 tablet by mouth once daily 1 10/10/19 21 Inactive Sprintec (28) 0.25 mg-35 mcg tablet RxNorm: 064766 TAKE ONE TABLET BY MOUTH ONCE DAILY 0 10/21/19 20 Inactive Sprintec (28) 0.25 mg-35 mcg tablet RxNorm: 925982 TAKE ONE TABLET BY MOUTH ONCE DAILY 9 10/08/19 20 Inactive Sprintec (28) 0.25 mg-35 mcg tablet RxNorm: 140461 1 Tablet(s) PO QD 8 10/15/19 19 Inactive Sprintec (28) 0.25 mg-35 mcg tablet RxNorm: 440790 1 Tablet(s) PO QD 7 10/16/19 18 Inactive Sprintec (28) 0.25 mg-35 mcg tablet RxNorm: 287960 1 Tablet(s) PO QD 6 10/30/19 17 Inactive Sprintec (28) 0.25 mg-35 mcg tablet RxNorm: 780248 1 Tablet(s) PO QD 5 10/13/19 16 Inactive Sprintec (28) 0.25 mg-35 mcg tablet RxNorm: 093149 1 Tablet(s) PO QD 4 10/25/19 15 Inactive Sprintec (28) 0.25 mg-35 mcg tablet RxNorm: 688265 1 Tablet(s) PO QD 4 12/04/19 14 Inactive Sprintec (28) 0.25 mg-35 mcg tablet RxNorm: 586554 1 Tablet(s) PO QD 3 11/19/19 14 Inactive Sprintec (28) 0.25 mg-35 mcg tablet RxNorm: 090747 1 Tablet(s) PO QD 2 12/18/19 13 Inactive Medication Administered No Medication Administered data Procedures Procedure Codes Date SPECIMEN HANDLING OFFICE-LAB CPT-4: 44222 SPECIMEN HANDLING OFFICE-LAB CPT-4: 35237 EXC TR-EXT B9+TRACE 0.5 CM< CPT-4: 99223 04/26 Vital Signs Date Vital Reason For [...] 01/30/2012 Encounters Encounter Performer Location Codes Date (20643) PREV VISIT EST AGE 18-39 Diagnosis: Encounter for general adult medical examination without abnormal findings[ICD10: Z00.00] Diagnosis: Encounter for gynecological examination (general) (routine) without abnormal findings[ICD10: Z01.419] Joseph BENJAMIN [employer] CPT-4: 07264 10/11/2020 ([id number]) PREV VISIT EST AGE 18-39 Diagnosis: Encounter for general adult medical examination without abnormal findings[ICD10: Z00.00] Diagnosis: Primary dysmenorrhea[ICD10: N94.4] Joseph BENJAMIN [employer] CPT-4: 28151 10/09/2019 ([id number]) PREV VISIT EST AGE 18-39 Diagnosis: Encounter for general adult medical examination without abnormal findings[ICD10: Z00.00] Diagnosis: Primary dysmenorrhea[ICD10: N94.4] Joseph BENJAMIN DO [employer] CPT-4: 20542 10/09/2018 ([id number]) PREV VISIT EST AGE 18-39 Diagnosis: Encounter for general adult medical examination without abnormal findings[ICD10: Z00.00] Diagnosis: Encounter for gynecological examination (general) (routine) without abnormal findings[ICD10: Z01.419] Diagnosis: Primary dysmenorrhea[ICD10: N94.4] Joseph BENJAMIN DO [employer] CPT-4: 51966 10/17/2017 ([id number]) PREV VISIT EST AGE 18-39 Diagnosis: Encounter for general adult medical examination without abnormal findings[ICD10: Z00.00] Diagnosis: Primary dysmenorrhea[ICD10: N94.4] Diagnosis: Melanocytic nevi of trunk[ICD10: D22.5] Joseph BENJAMIN DO [employer] CPT-4: 35847 10/16/2016 ([id number]) PREV VISIT EST AGE 18-39 Diagnosis: Encounter for general adult medical examination without abnormal findings[ICD10: Z00.00] Diagnosis: Primary dysmenorrhea[ICD10: N94.4] Joseph BENJAMIN DO [employer] CPT-4: 84916 10/14/2015 ([id number]) PREV VISIT EST AGE 18-39 Diagnosis: ROUTINE GYNE EXAM[ICD9: V72.31] Diagnosis: ROUTINE MEDICAL EXAM[ICD9: V70.0] Lynda Mahoney JOSEPH BENJAMIN DO [employer] CPT-4: 03438 10/26/2014 ([id number]) OFFICE/OUTPATIENT VISIT EST Diagnosis: DYSMENORRHEA[ICD9: 625.3] Joseph BENJAMIN DO [employer] CPT-4: 71979 12/04/2013 ([id number]) PREV VISIT EST AGE 18-39 Diagnosis: ROUTINE MEDICAL EXAM[ICD9: V70.0] Diagnosis: ROUTINE GYNE EXAM[ICD9: V72.31] Diagnosis: Dysmenorrhea[ICD9: 625.3] Joseph Dannynisreenlita BENJAMIN DO [employer] CPT-4: 61387 12/18/2012 ([id number]) SPECIMEN HANDLING OFFICE-LAB Diagnosis: [ICD9: ] Diagnosis: [ICD9: ] Diagnosis: [ICD9: ] Joseph BENJAMIN DO [employer] CPT-4: 11923 12/18/2012 ([id number]) PREV VISIT NEW AGE 18-39 Diagnosis: ROUTINE MEDICAL EXAM[ICD9: V70.0] Diagnosis: Visit for routine nurse obgyn exam[ICD9: V72.31] Itzel BENJAMIN DO [employer] CPT-4: 53340 01/30/2012 ([id number]) SPECIMEN HANDLING Diagnosis: [ICD9: ] Diagnosis: [ICD9: ] Itzel BENJAMIN DO [employer] CPT-4: 83128 01/30/2012 Plan of Care Planned Activity Notes [...] N94.4 10/09/2019 Appointment: [facility] [phone] [facility] [facility] 10/09/2019 Patient Education: Sprintec (28)- Opt[employer] Coupon [id number] [email or web address].[employer]. com/[employer]md/resource s/getResource/61/cf7c [email or web address].pdf Completed 10/09/2019 Visit Diagnosis Plan: Encounter for general adult medical examination without abnormal findings Discussion: On PNV Mediterranean diet Resume exercise--combo of cardio/weight bearing exercise Recommend updated TdaP ICD-9 : V70.0 ICD-10 : Z00.00 10/09/2018 Appointment: Joseph Benjamin WPtel: [facility] Ref# [phone] for annual and will be covered per [employer]. [phone] Annual Well Visit 10/09/2018 Visit Diagnosis Plan: Encounter for general adult medical examination without abnormal findings Discussion: Increase Exercise Discussed compression socks for work since sits ICD-9 : V70.0 ICD-10 : Z00.00 10/17/2017 Visit Diagnosis Plan: Encounter for gynecological examination (general) (routine) without abnormal findings Discussion: Pap done Add PNV ICD-9 : V72.31 ICD-10 : Z01.419 10/17/2017 Appointment: Joseph Benjamin WPtel: [address] [place] [address] Annual Well Visit 10/17/2017 Patient Education: Patient [...] Z48.02 05/07/2017 Appointment: Joseph Benjamin WPtel: [facility] Suture Removal 05/07/2017 Patient Education: Patient Medication Summary Completed 05/07/2017 Visit Diagnosis Plan: Melanocytic nevi of trunk Discussion: Excised with 4-0 punch biopsy--sutures x2 then steri strips and opsite Return in 10 days for suture removal ICD-9 : 216.5 ICD-10 : D22.5 04/26/2017 Appointment: Joseph Benjamin WPtel: [address] [place] [address] 8/9 lm~sl ACUTE ILLNESS 04/26/2017 Patient Education: Patient Medication Summary Completed 04/26/2017 Visit Diagnosis Plan: Primary dysmenorrhea Discussion: Continue sprintec ICD-9 : 625.3 ICD-10 : N94.4 10/16/2016 Visit Diagnosis Plan: Melanocytic nevi of trunk Discussion: Return for removal ICD-9 : 216.5 ICD-10 : D22.5 10/16/2016 Appointment: Joseph Benjamin WPtel: [address] [place] [address] 10/13 lm`sl 10/16 confirmed `sl Annual Well Visit 10/16/2016 Patient Education: Patient Medication Summary Completed 10/16/2016 Visit Plan: Continue sprintec Will plan on Pap smear next year Gets lab done in March at work 10/14/2015 Appointment: Joseph Benjamin WPtel: [address] [place] [address] 10/13/15 appt confirmed cn Annual Well Visit 10/14/2015 Patient Education: Patient Medication Summary Completed 10/14/2015 Appointment: Lynda Mahoney WPtel: [address] [place] [address] Annual Well Visit 10/26/2014 Patient Education: Patient Medication Summary Completed 10/26/2014 Patient Education: ConsumerCare - Antibiotics, Analgesics 18+, Oral Contraceptives F 18+ Completed 10/26/2014 Visit Plan: Continue sprintec 12/04/2013 Appointment: Joseph Benjamin WPtel: [address] [place] [address] [place] PAP 12/04/2013 Patient Education: Patient Medication Summary Completed 12/04/2013 Visit Plan: Pap done Continue Sprintec 12/18/2012 Appointment: [facility]el: [phone] [facility] [facility] 12/18/2012 Patient Education: Patient Medication Summary Completed 12/18/2012 Appointment: Itzel Arana WPtel: [phone] [facility] NEW PATIENT 01/30/2012 Patient Education: Patient Medication Summary Completed 01/30/2012 Instructions Comment . Continue sprintec Will plan on Pap smear next year Gets lab done in March at work . Continue sprintec . Pap done Continue Sprintec Medical Equipment No Medical Equipment data Advance Directives No Advance Directive data
--- OUTSIDE RECORDS SUMMARY | 2023-06-04 10:41 | XMS REPORT | CCD ---
Author Author Danielle Arana APRN Organization [facility] DO [facility] Address [address] [place] [address] Phone Care Team Providers Care Back Office Medical Assistant Name Role Phone Joseph Benjamin D.O., PP Unavail able CCM Unavailable Summary Purpose Interface Exchange Insurance Providers Payer name Policy type / Coverage type Covered green party ID Effective Begin Date Effective End Date [employer] Commercial Insurance [id number] Unk nown Family history Grandmother Diagnosis Age At Onset Uterine Cancer Unknown Mother Diagnosis Age At Onset Diabetes mellitus Type 2 Unknown Hypertension Unknown Social History Social History Element Codes Description Effec tive Dates Marital status Unknown Single 01/30/2012 Employment Unknown Currently employed [address]: 361776149 Has never s moked or chewed tobacco [...] Sprintec (28) 0.25 mg-35 mcg tablet RxNorm: 874603 TAKE ONE TABLET BY MOUTH ONCE DAILY 0 10/21/19 20 Active Sprintec (28) 0.25 mg-35 mcg tablet RxNorm: 915621 TAKE ONE TABLET BY MOUTH ONCE DAILY 9 10/08/19 20 Inactive Sprintec (28) 0.25 mg-35 mcg tablet RxNorm: 465365 1 Tablet(s) PO QD 8 10/15/19 19 Inactive Sprintec (28) 0.25 mg-35 mcg tablet RxNorm: 039518 1 Tablet(s) PO QD 7 10/16/19 18 Inactive Sprintec (28) 0.25 mg-35 mcg tablet RxNorm: 875946 1 Tablet(s) PO QD 6 10/30/19 17 Inactive Sprintec (28) 0.25 mg-35 mcg tablet RxNorm: 981635 1 Tablet(s) PO QD 5 10/13/19 16 Inactive Sprintec (28) 0.25 mg-35 mcg tablet RxNorm: 380750 1 Tablet(s) PO QD 4 10/25/19 15 Inactive Sprintec (28) 0.25 mg-35 mcg tablet RxNorm: 377409 1 Tablet(s) PO QD 4 12/04/19 14 Inactive Sprintec (28) 0.25 mg-35 mcg tablet RxNorm: 340406 1 Tablet(s) PO QD 3 11/19/19 14 Inactive Sprintec (28) 0.25 mg-35 mcg tablet RxNorm: 328533 1 Tablet(s) PO QD 2 12/18/19 13 Inactive Medication Administered No Medication Administered data Procedures Procedure Codes Date SPECIMEN HANDLING OFFICE-LAB CPT-4: 50974 EXC TR-EXT B9+TRACE 0.5 CM< CPT-4: 65253 04/26 Vital Signs Date Vital Reason For [...] 01/30/2012 Encounters Encounter Performer Location Codes Date (13902) PREV VISIT EST AGE 18-39 Diagnosis: Encounter for general adult medical examination without abnormal findings[ICD10: Z00.00] Diagnosis: Primary dysmenorrhea[ICD10: N94.4] Joseph [facility]UIZ [facility] [employer] [employer] CPT-4: 15959 10/09/2019 ([id number]) PREV VISIT EST AGE 18-39 Diagnosis: Encounter for general adult medical examination without abnormal findings[ICD10: Z00.00] Diagnosis: Primary dysmenorrhea[ICD10: N94.4] Joseph RUIZ [facility] [employer] CPT-4: 12847 10/09/2018 ([id number]) PREV VISIT EST AGE 18-39 Diagnosis: Encounter for general adult medical examination without abnormal findings[ICD10: Z00.00] Diagnosis: Encounter for gynecological examination (general) (routine) without abnormal findings[ICD10: Z01.419] Diagnosis: Primary dysmenorrhea[ICD10: N94.4] Joseph Dunn [employer] CPT-4: 70347 10/17/2017 ([id number]) PREV VISIT EST AGE 18-39 Diagnosis: Encounter for general adult medical examination without abnormal findings[ICD10: Z00.00] Diagnosis: Primary dysmenorrhea[ICD10: N94.4] Diagnosis: Melanocytic nevi of trunk[ICD10: D22.5] Joseph BENJAMIN DO [facility] CPT-4: 99851 10/16/2016 ([id number]) PREV VISIT EST AGE 18-39 Diagnosis: Encounter for general adult medical examination without abnormal findings[ICD10: Z00.00] Diagnosis: Primary dysmenorrhea[ICD10: N94.4] Joseph BENJAMIN DO [facility] CPT-4: 54279 10/14/2015 ([id number]) PREV VISIT EST AGE 18-39 Diagnosis: ROUTINE GYNE EXAM[ICD9: V72.31] Diagnosis: ROUTINE MEDICAL EXAM[ICD9: V70.0] Lynda BENJAMIN DO [employer] CPT-4: 33268 10/26/2014 ([id number]) OFFICE/OUTPATIENT VISIT EST Diagnosis: DYSMENORRHEA[ICD9: 625.3] Joseph BENJAMIN DO [employer] CPT-4: 48652 12/04/2013 ([id number]) PREV VISIT EST AGE 18-39 Diagnosis: ROUTINE MEDICAL EXAM[ICD9: V70.0] Diagnosis: ROUTINE GYNE EXAM[ICD9: V72.31] Diagnosis: Dysmenorrhea[ICD9: 625.3] Joseph BENJAMIN DO [employer] CPT-4: 58103 12/18/2012 ([id number]) SPECIMEN HANDLING OFFICE-LAB Diagnosis: [ICD9: ] Diagnosis: [ICD9: ] Diagnosis: [ICD9: ] Joseph BENJAMIN DO [employer] CPT-4: 76418 12/18/2012 ([id number]) PREV VISIT NEW AGE 18-39 Diagnosis: ROUTINE MEDICAL EXAM[ICD9: V70.0] 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] Itzel Arana JOSEPH BENJAMIN DO [employer] CPT-4: 99856 01/30/2012 ([id number]) SPECIMEN HANDLING Diagnosis: [ICD9: ] Diagnosis: [ICD9: ] Itzel PALOMOSKY BENJAMIN DO [employer] CPT-4: 13563 01/30/2012 Plan of Care Planned Activity Notes [...] 10/09/2019 Patient Education: Sprintec (28)- [employer] Coupon [phone] [email or web address] Completed 10/09/2019 Visit Diagnosis Plan: Encounter for general adult medical examination without abnormal findings Discussion: On PNV Mediterranean diet Resume exercise--combo of cardio/weight bearing exercise Recommend updated TdaP ICD-9 : V70.0 ICD-10 : Z00.00 10/09/2018 Appointment: Joseph Benjamin WPtel: [phone] Ref# [phone] for annual and will be covered per [employer]. [phone] Annual Well Visit 10/09/2018 Visit Diagnosis Plan: Encounter for gynecological examination (general) (routine) without abnormal findings Discussion: Pap done Add PNV ICD-9 : V72.31 ICD-10 : Z01.419 10/17/2017 Visit Diagnosis Plan: Encounter for general adult medical examination without abnormal findings Discussion: Increase Exercise Discussed compression socks for work since sits ICD-9 : V70.0 ICD-10 : Z00.00 10/17/2017 Appointment: Joseph Benjamin WPtel: [phone] [id number] Annual Well Visit 10/17/2017 Patient Education: Patient [...] : Z48.02 05/07/2017 Appointment: Joseph Benjamin WPtel: [address] [place], [place] [phone] Suture Removal 05/07/2017 Patient Education: Patient Medication Summary Completed 05/07/2017 Visit Diagnosis Plan: Melanocytic nevi of trunk Discussion: Excised with 4-0 punch biopsy--sutures x2 then steri strips and opsite Return in 10 days for suture removal ICD-9 : 216.5 ICD-10 : D22.5 04/26/2017 Appointment: Joseph Benjamin WPtel: [address] [place] [address] 8/ lm~sl ACUTE ILLNESS 04/26/2017 Patient Education: Patient Medication Summary Completed 04/26/2017 Visit Diagnosis Plan: Melanocytic nevi of trunk Discussion: Return for removal ICD-9 : 216.5 ICD-10 : D22.5 10/16/2016 Visit Diagnosis Plan: Primary dysmenorrhea Discussion: Continue sprintec ICD-9 : 625.3 ICD-10 : N94.4 10/16/2016 Appointment: Joseph Benjamin WPtel: [address] [place] [address] 10/13 lm`sl 10/16 confirmed `sl Annual Well Visit 10/16/2016 Patient Education: Patient Medication Summary Completed 10/16/2016 Visit Plan: Continue sprintec Will plan on Pap smear next year Gets lab done in March at work 10/14/2015 Appointment: Joseph Benjamin WPtel: [address] [place], [place] [phone] 10/13/15 appt confirmed cn Annual Well Visit 10/14/2015 Patient Education: Patient Medication Summary Completed 10/14/2015 Appointment: Lynda Mahoney WPtel: [address] [place], [place] [phone] Annual Well Visit 10/26/2014 Patient Education: Patient Medication Summary Completed 10/26/2014 Patient Education: ConsumerCare - Antibiotics, Analgesics 18+, Oral Contraceptives F 18+ Completed 10/26/2014 Visit Plan: Continue sprintec 12/04/2013 Appointment: Joseph Benjamin WPtel: [address] [place], [place] [phone] PAP 12/04/2013 Patient Education: Patient Medication Summary Completed 12/04/2013 Visit Plan: Pap done Continue Sprintec 12/18/2012 Appointment: Joseph Benjamin WPtel: [address] [place], [place] [phone] PAP 12/18/2012 Patient Education: Patient Medication Summary Completed 12/18/2012 Appointment: Itzel Arana WPtel: [address] [place], [place] [phone] NEW PATIENT 01/30/2012 Patient Education: Patient Medication Summary Completed 01/30/2012 Instructions Comment . Continue sprintec Will plan on Pap smear next year Gets lab done in March at work . Continue sprintec . Pap done Continue Sprintec Medical Equipment No Medical Equipment data Advance Directives No Advance Directive data
--- OUTSIDE RECORDS SUMMARY | 2023-06-04 10:41 | XMS REPORT | CCD ---
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 Name Role Phone Joseph Benjamin D.O., PP Unavail able CCM Unavailable Summary Purpose Interface Exchange Insurance Providers Payer name Policy type / Coverage type Covered alliance party ID Effective Begin Date Effective End Date [employer] Commercial Insurance [id number] Unk nown Family history Grandmother Diagnosis Age At Onset Uterine Cancer Unknown Mother Diagnosis Age At Onset Diabetes mellitus Type 2 Unknown Hypertension Unknown Social History Social History Element Codes Description Effec tive Dates Marital status Unknown Single 01/30/2012 Employment Unknown Currently employed [address]: 289862850 Has never s moked or chewed tobacco 01/30/2012 Allergies, Adverse Reactions, Alerts Substance Reaction Codes Entered Date Inactivated Date Status * NO KNOWN DRUG ALLERGIES Unknown 01/30/2012 No Inactive Date Active Past Medical History Illness Codes Condition Status Onset Date Resolved Date Encounter for general adult medical examination without abnormal findings ICD-9: V70.0 ICD-10: Z00.00 Active 10/26/2014 Unknown Primary dysmenorrhea ICD-9: 625.3 ICD-10: N94.4 Active 12/18/2012 Unknown Encounter for gynecological examination (general) (routine) without abnormal findings ICD-9: V72.31 ICD-10: Z01.419 Active 10/17/2017 Unknown Encounter for removal of sutures ICD-9: V58.32 ICD-10: Z48.02 Active 05/07/2017 Unknown Melanocytic nevi of trunk ICD-9: 216.5 ICD-10: D22.5 Active 10/16/2016 Unknown ROUTINE GYNE EXAM ICD-9: V72.31 Active 10/26/2014 Unkn own ROUTINE MEDICAL EXAM ICD-9: V70.0 Active 10/26/2014 Un known Dysmenorrhea ICD-9: 625.3 Active 12/18/2012 Unknown Problems Condition Codes Effective Dates Condition St [...] Sprintec (28) 0.25 mg-35 mcg tablet RxNorm: 741143 TAKE ONE TABLET BY MOUTH ONCE DAILY 9 No Stop Date Active Sprintec (28) 0.25 mg-35 mcg tablet RxNorm: 362008 1 Tablet(s) PO QD 8 10/15/19 19 Inactive Sprintec (28) 0.25 mg-35 mcg tablet RxNorm: 762772 1 Tablet(s) PO QD 7 10/16/19 18 Inactive Sprintec (28) 0.25 mg-35 mcg tablet RxNorm: 204798 1 Tablet(s) PO QD 6 10/30/19 17 Inactive Sprintec (28) 0.25 mg-35 mcg tablet RxNorm: 363200 1 Tablet(s) PO QD 5 10/13/19 16 Inactive Sprintec (28) 0.25 mg-35 mcg tablet RxNorm: 759027 1 Tablet(s) PO QD 4 10/25/19 15 Inactive Sprintec (28) 0.25 mg-35 mcg tablet RxNorm: 820132 1 Tablet(s) PO QD 4 12/04/19 14 Inactive Sprintec (28) 0.25 mg-35 mcg tablet RxNorm: 555288 1 Tablet(s) PO QD 3 11/19/19 14 Inactive Sprintec (28) 0.25 mg-35 mcg tablet RxNorm: 313734 1 Tablet(s) PO QD 2 12/18/19 13 Inactive Medication Administered No Medication Administered data Assessments Condition Codes Effective Dates Primary dysmenorrhea ICD-10: N94.4 ICD-9: 625.3 10/09/2018 Encounter for general adult medical examination without abnormal findings ICD-10: Z00.00 ICD-9: V70.0 10/09/2018 Encounter for gynecological examination (general) (routine) without abnormal findings ICD-10: Z01.419 ICD-9: V72.31 10/17/2017 Encounter for removal of sutures ICD-10: Z48.02 ICD-9: V58.32 05/07/2017 Melanocytic nevi of trunk ICD-10: D22.5 ICD-9: 216.5 04/26/2017 ROUTINE MEDICAL EXAM ICD-9: V70.0 10/26/2014 ROUTINE GYNE EXAM ICD-9: V72.31 10/26/2014 DYSMENORRHEA ICD-9: 625.3 12/04/2013 Reason For Visit Reason For Visit Effective Dates Notes well woman exam (18-39 years) 10/09/2018 well [...] 12/18/2012 well woman exam (18-39 years) 01/30/2012 Review of Systems System Result Effective Dates Constitutional No night sweats 10/09/2018 Constitutional No fatigue 10/09/2018 Constitutional No fever 10/09/2018 Constitutional No insomnia 10/09/2018 Constitutional No weight loss 10/09/2018 Eyes No eye pain 10/09/2018 Eyes No photophobia 10/09/2018 Eyes No vision change 10/09/2018 Eyes No visual disturbance 10/09/2018 Ears/Nose/Throat/Neck No hearing loss 10/09/2018 Ears/Nose/Throat/Neck No nasal discharge 019 Ears/Nose/Throat/Neck No sinus congestion 2018 Ears/Nose/Throat/Neck No sore throat 10/09/2018 Cardiovascular No arrhythmia 10/09/2018 Cardiovascular No chest pain/pressure 9 Cardiovascular No edema 10/09/2018 Cardiovascular No exercise intolerance 10/09/19 19 Cardiovascular No orthopnea 10/09/2018 Cardiovascular No palpitations 10/09/2018 Respiratory No asthma 10/09/2018 Respiratory No cough 10/09/2018 Respiratory No dyspnea 10/09/2018 Respiratory No pleuritic pain 10/09/2018 Respiratory No productive sputum 10/09/2018 Respiratory No wheezing 10/09/2018 Gastrointestinal No hemorrhoids 10/09/2018 Gastrointestinal No hepatitis 10/09/2018 Gastrointestinal No abdominal pain 10/09/2018 Gastrointestinal No constipation 10/09/2018 Gastrointestinal No diarrhea 10/09/2018 Gastrointestinal No gastroesophageal reflux 09/18 Gastrointestinal No melena 10/09/2018 Gastrointestinal No nausea 10/09/2018 Gastrointestinal No vomiting 10/09/2018 Genitourinary/Nephrology No dysuria 019 Genitourinary/Nephrology No nocturia 019 Genitourinary/Nephrology No urinary incontinence 10/09/2018 Musculoskeletal No muscle weakness 10/09/2018 Musculoskeletal No myalgias 10/09/2018 Musculoskeletal No stiffness 10/09/2018 Musculoskeletal No swelling 10/09/2018 Dermatologic No rash 10/09/2018 Dermatologic No scar 10/09/2018 Neurologic No dizziness 10/09/2018 Neurologic No headache 10/09/2018 Neurologic No neck pain 10/09/2018 Neurologic No syncope 10/09/2018 Psychiatric No anxiety 10/09/2018 Psychiatric No depression 10/09/2018 Endocrine No goiter 10/09/2018 Endocrine No hyperglycemia 10/09/2018 Endocrine No hypoglycemia 10/09/2018 Hematologic/Lymphatic No abnormal ecchymoses Hematologic/Lymphatic No petechiae 10/09/2018 Hematologic/Lymphatic No abnormal bleeding and b ruising 10/09/2018 Hematologic/Lymphatic No anemia 10/09/2018 Hematologic/Lymphatic No lymph node enlargement/ mass 10/09/2018 Allergy/Immunology No food allergy 10/09/2018 Constitutional No night sweats 10/17/2017 Constitutional No fatigue 10/17/2017 Constitutional No fever 10/17/2017 Constitutional No insomnia 10/17/2017 Constitutional No weight loss 10/17/2017 Eyes No eye pain 10/17/2017 Eyes No photophobia 10/17/2017 Eyes No vision change 10/17/2017 Eyes No visual disturbance 10/17/2017 Ears/Nose/Throat/Neck No hearing loss 10/17/2017 Ears/Nose/Throat/Neck No nasal discharge 018 Ears/Nose/Throat/Neck No sinus congestion 2017 Ears/Nose/Throat/Neck No sore throat 10/17/2017 Cardiovascular No arrhythmia 10/17/2017 Cardiovascular No chest pain/pressure 8 Cardiovascular No edema 10/17/2017 Cardiovascular No exercise intolerance 10/17/19 18 Cardiovascular No orthopnea 10/17/2017 Cardiovascular No palpitations 10/17/2017 Respiratory No asthma 10/17/2017 Respiratory No cough 10/17/2017 Respiratory No dyspnea 10/17/2017 Respiratory No pleuritic pain 10/17/2017 Respiratory No productive sputum 10/17/2017 Respiratory No wheezing 10/17/2017 Gastrointestinal No hemorrhoids 10/17/2017 Gastrointestinal No hepatitis 10/17/2017 Gastrointestinal No abdominal pain 10/17/2017 Gastrointestinal No constipation 10/17/2017 Gastrointestinal No diarrhea 10/17/2017 Gastrointestinal No gastroesophageal reflux 09/19 Gastrointestinal No melena 10/17/2017 Gastrointestinal No nausea 10/17/2017 Gastrointestinal No vomiting 10/17/2017 Genitourinary/Nephrology No dysuria 018 Genitourinary/Nephrology No nocturia 018 Genitourinary/Nephrology No urinary incontinence 10/17/2017 Musculoskeletal No muscle weakness 10/17/2017 Musculoskeletal No myalgias 10/17/2017 Musculoskeletal No stiffness 10/17/2017 Musculoskeletal No swelling 10/17/2017 Dermatologic No rash 10/17/2017 Dermatologic No scar 10/17/2017 Neurologic No dizziness 10/17/2017 Neurologic No headache 10/17/2017 Neurologic No neck pain 10/17/2017 Neurologic No syncope 10/17/2017 Psychiatric No anxiety 10/17/2017 Psychiatric No depression 10/17/2017 Endocrine No goiter 10/17/2017 Endocrine No hyperglycemia 10/17/2017 Endocrine No hypoglycemia 10/17/2017 Hematologic/Lymphatic No abnormal ecchymoses Hematologic/Lymphatic No petechiae 10/17/2017 Hematologic/Lymphatic No abnormal bleeding and b ruising 10/17/2017 Hematologic/Lymphatic No anemia 10/17/2017 Hematologic/Lymphatic No lymph node enlargement/ mass 10/17/2017 Allergy/Immunology No food allergy 10/17/2017 Constitutional No night sweats 10/16/2016 Constitutional No fatigue 10/16/2016 Constitutional No fever 10/16/2016 Constitutional No insomnia 10/16/2016 Constitutional No weight loss 10/16/2016 Eyes No eye pain 10/16/2016 Eyes No photophobia 10/16/2016 Eyes No vision change 10/16/2016 Eyes No visual disturbance 10/16/2016 Ears/Nose/Throat/Neck No hearing loss 10/16/2016 Ears/Nose/Throat/Neck No nasal discharge 017 Ears/Nose/Throat/Neck No sinus congestion 2016 Ears/Nose/Throat/Neck No sore throat 10/16/2016 Cardiovascular No arrhythmia 10/16/2016 Cardiovascular No chest pain/pressure 7 Cardiovascular No edema 10/16/2016 Cardiovascular No exercise intolerance 10/16/19 17 Cardiovascular No orthopnea 10/16/2016 Cardiovascular No palpitations 10/16/2016 Respiratory No asthma 10/16/2016 Respiratory No cough 10/16/2016 Respiratory No dyspnea 10/16/2016 Respiratory No pleuritic pain 10/16/2016 Respiratory No productive sputum 10/16/2016 Respiratory No wheezing 10/16/2016 Gastrointestinal No hemorrhoids 10/16/2016 Gastrointestinal No hepatitis 10/16/2016 Gastrointestinal No abdominal pain 10/16/2016 Gastrointestinal No constipation 10/16/2016 Gastrointestinal No diarrhea 10/16/2016 Gastrointestinal No gastroesophageal reflux 09/19 Gastrointestinal No melena 10/16/2016 Gastrointestinal No nausea 10/16/2016 Gastrointestinal No vomiting 10/16/2016 Genitourinary/Nephrology No dysuria 017 Genitourinary/Nephrology No nocturia 017 Genitourinary/Nephrology No urinary incontinence 10/16/2016 Musculoskeletal No muscle weakness 10/16/2016 Musculoskeletal No myalgias 10/16/2016 Musculoskeletal No stiffness 10/16/2016 Musculoskeletal No swelling 10/16/2016 Dermatologic No rash 10/16/2016 Dermatologic No scar 10/16/2016 Neurologic No dizziness 10/16/2016 Neurologic No headache 10/16/2016 Neurologic No neck pain 10/16/2016 Neurologic No syncope 10/16/2016 Psychiatric No anxiety 10/16/2016 Psychiatric No depression 10/16/2016 Endocrine No goiter 10/16/2016 Endocrine No hyperglycemia 10/16/2016 Endocrine No hypoglycemia 10/16/2016 Hematologic/Lymphatic No abnormal ecchymoses Hematologic/Lymphatic No petechiae 10/16/2016 Hematologic/Lymphatic No abnormal bleeding and b ruising 10/16/2016 Hematologic/Lymphatic No anemia 10/16/2016 Hematologic/Lymphatic No lymph node enlargement/ mass 10/16/2016 Allergy/Immunology No food allergy 10/16/2016 Constitutional No night sweats 10/14/2015 Constitutional No fatigue 10/14/2015 Constitutional No fever 10/14/2015 Constitutional No insomnia 10/14/2015 Constitutional No weight loss 10/14/2015 Eyes No eye pain 10/14/2015 Eyes No photophobia 10/14/2015 Eyes No vision change 10/14/2015 Eyes No visual disturbance 10/14/2015 Ears/Nose/Throat/Neck No hearing loss 10/14/2015 Ears/Nose/Throat/Neck No nasal discharge 016 Ears/Nose/Throat/Neck No sinus congestion 2015 Ears/Nose/Throat/Neck No sore throat 10/14/2015 Cardiovascular No arrhythmia 10/14/2015 Cardiovascular No chest pain/pressure 6 Cardiovascular No edema 10/14/2015 Cardiovascular No exercise intolerance 10/14/19 16 Cardiovascular No orthopnea 10/14/2015 Cardiovascular No palpitations 10/14/2015 Respiratory No asthma 10/14/2015 Respiratory No cough 10/14/2015 Respiratory No dyspnea 10/14/2015 Respiratory No pleuritic pain 10/14/2015 Respiratory No productive sputum 10/14/2015 Respiratory No wheezing 10/14/2015 Gastrointestinal No hemorrhoids 10/14/2015 Gastrointestinal No hepatitis 10/14/2015 Gastrointestinal No abdominal pain 10/14/2015 Gastrointestinal No constipation 10/14/2015 Gastrointestinal No diarrhea 10/14/2015 Gastrointestinal No gastroesophageal reflux 09/18 Gastrointestinal No melena 10/14/2015 Gastrointestinal No nausea 10/14/2015 Gastrointestinal No vomiting 10/14/2015 Genitourinary/Nephrology No dysuria 016 Genitourinary/Nephrology No nocturia 016 Genitourinary/Nephrology No urinary incontinence 10/14/2015 Musculoskeletal No muscle weakness 10/14/2015 Musculoskeletal No myalgias 10/14/2015 Musculoskeletal No stiffness 10/14/2015 Musculoskeletal No swelling 10/14/2015 Dermatologic No rash 10/14/2015 Dermatologic No scar 10/14/2015 Neurologic No dizziness 10/14/2015 Neurologic No headache 10/14/2015 Neurologic No neck pain 10/14/2015 Neurologic No syncope 10/14/2015 Psychiatric No anxiety 10/14/2015 Psychiatric No depression 10/14/2015 Endocrine No goiter 10/14/2015 Endocrine No hyperglycemia 10/14/2015 Endocrine No hypoglycemia 10/14/2015 Hematologic/Lymphatic No abnormal ecchymoses Hematologic/Lymphatic No petechiae 10/14/2015 Hematologic/Lymphatic No abnormal bleeding and b ruising 10/14/2015 Hematologic/Lymphatic No anemia 10/14/2015 Hematologic/Lymphatic No lymph node enlargement/ mass 10/14/2015 Allergy/Immunology No food allergy 10/14/2015 Constitutional No night sweats 10/26/2014 Constitutional No recent illness 10/26/2014 Constitutional No fatigue 10/26/2014 Constitutional No fever 10/26/2014 Constitutional No insomnia 10/26/2014 Constitutional No weight loss 10/26/2014 Eyes No eye pain 10/26/2014 Eyes No photophobia 10/26/2014 Eyes No vision change 10/26/2014 Eyes No visual disturbance 10/26/2014 Ears/Nose/Throat/Neck No hearing loss 10/26/2014 Ears/Nose/Throat/Neck No nasal discharge 015 Ears/Nose/Throat/Neck No sinus congestion 2014 Ears/Nose/Throat/Neck No sore throat 10/26/2014 Cardiovascular No arrhythmia 10/26/2014 Cardiovascular No chest pain/pressure 5 Cardiovascular No edema 10/26/2014 Cardiovascular No exercise intolerance 10/26/19 15 Cardiovascular No orthopnea 10/26/2014 Cardiovascular No palpitations 10/26/2014 Respiratory No asthma 10/26/2014 Respiratory No cough 10/26/2014 Respiratory No dyspnea 10/26/2014 Respiratory No pleuritic pain 10/26/2014 Respiratory No productive sputum 10/26/2014 Respiratory No wheezing 10/26/2014 Gastrointestinal No hemorrhoids 10/26/2014 Gastrointestinal No hepatitis 10/26/2014 Gastrointestinal No abdominal pain 10/26/2014 Gastrointestinal No constipation 10/26/2014 Gastrointestinal No diarrhea 10/26/2014 Gastrointestinal No gastroesophageal reflux 05/2015 Gastrointestinal No melena 10/26/2014 Gastrointestinal No nausea 10/26/2014 Gastrointestinal No vomiting 10/26/2014 Genitourinary/Nephrology No dysuria 015 Genitourinary/Nephrology No nocturia 015 Genitourinary/Nephrology No urinary incontinence 10/26/2014 Musculoskeletal No stiffness 10/26/2014 Musculoskeletal No swelling 10/26/2014 Musculoskeletal No muscle weakness 10/26/2014 Musculoskeletal No myalgias 10/26/2014 Dermatologic No rash 10/26/2014 Dermatologic No scar 10/26/2014 Neurologic No dizziness 10/26/2014 Neurologic No headache 10/26/2014 Neurologic No neck pain 10/26/2014 Neurologic No syncope 10/26/2014 Psychiatric No anxiety 10/26/2014 Psychiatric No depression 10/26/2014 Endocrine No goiter 10/26/2014 Endocrine No hyperglycemia 10/26/2014 Endocrine No hypoglycemia 10/26/2014 Hematologic/Lymphatic No abnormal ecchymoses 05/2015 Hematologic/Lymphatic No petechiae 10/26/2014 Hematologic/Lymphatic No abnormal bleeding and b ruising 10/26/2014 Hematologic/Lymphatic No anemia 10/26/2014 Hematologic/Lymphatic No lymph node enlargement/ mass 10/26/2014 Allergy/Immunology No food allergy 10/26/2014 Constitutional No night sweats 12/04/2013 Constitutional No fatigue 12/04/2013 Constitutional No fever 12/04/2013 Constitutional No insomnia 12/04/2013 Constitutional No weight loss 12/04/2013 Eyes No eye pain 12/04/2013 Eyes No photophobia 12/04/2013 Eyes No vision change 12/04/2013 Eyes No visual disturbance 12/04/2013 Ears/Nose/Throat/Neck No hearing loss 12/04/2013 Ears/Nose/Throat/Neck No nasal discharge 014 Ears/Nose/Throat/Neck No sinus congestion 2013 Ears/Nose/Throat/Neck No sore throat 12/04/2013 Cardiovascular No arrhythmia 12/04/2013 Cardiovascular No chest pain/pressure 4 Cardiovascular No edema 12/04/2013 Cardiovascular No exercise intolerance 12/05/19 14 Cardiovascular No orthopnea 12/04/2013 Cardiovascular No palpitations 12/04/2013 Respiratory No asthma 12/04/2013 Respiratory No cough 12/04/2013 Respiratory No dyspnea 12/04/2013 Respiratory No pleuritic pain 12/04/2013 Respiratory No productive sputum 12/04/2013 Respiratory No wheezing 12/04/2013 Gastrointestinal No hemorrhoids 12/04/2013 Gastrointestinal No hepatitis 12/04/2013 Gastrointestinal No abdominal pain 12/04/2013 Gastrointestinal No constipation 12/04/2013 Gastrointestinal No diarrhea 12/04/2013 Gastrointestinal No gastroesophageal reflux 11/16 Gastrointestinal No melena 12/04/2013 Gastrointestinal No nausea 12/04/2013 Gastrointestinal No vomiting 12/04/2013 Genitourinary/Nephrology No dysuria 014 Genitourinary/Nephrology No nocturia 014 Genitourinary/Nephrology No urinary incontinence 12/04/2013 Musculoskeletal No muscle weakness 12/04/2013 Musculoskeletal No myalgias 12/04/2013 Musculoskeletal No stiffness 12/04/2013 Musculoskeletal No swelling 12/04/2013 Dermatologic No rash 12/04/2013 Dermatologic No scar 12/04/2013 Neurologic No dizziness 12/04/2013 Neurologic No headache 12/04/2013 Neurologic No neck pain 12/04/2013 Neurologic No syncope 12/04/2013 Psychiatric No anxiety 12/04/2013 Psychiatric No depression 12/04/2013 Endocrine No goiter 12/04/2013 Endocrine No hyperglycemia 12/04/2013 Endocrine No hypoglycemia 12/04/2013 Hematologic/Lymphatic No abnormal ecchymoses Hematologic/Lymphatic No petechiae 12/04/2013 Hematologic/Lymphatic No abnormal bleeding and b ruising 12/04/2013 Hematologic/Lymphatic No anemia 12/04/2013 Hematologic/Lymphatic No lymph node enlargement/ mass 12/04/2013 Allergy/Immunology No food allergy 12/04/2013 Genitourinary/Nephrology No menstrual irregulari ty 12/04/2013 Constitutional No night sweats 12/18/2012 Constitutional No fatigue 12/18/2012 Constitutional No fever 12/18/2012 Constitutional No insomnia 12/18/2012 Constitutional No weight loss 12/18/2012 Cardiovascular No arrhythmia 12/18/2012 Cardiovascular No chest pain/pressure 3 Cardiovascular No edema 12/18/2012 Cardiovascular No exercise intolerance 12/19/19 13 Cardiovascular No orthopnea 12/18/2012 Cardiovascular No palpitations 12/18/2012 Respiratory No asthma 12/18/2012 Respiratory No cough 12/18/2012 Respiratory No dyspnea 12/18/2012 Respiratory No pleuritic pain 12/18/2012 Respiratory No productive sputum 12/18/2012 Respiratory No wheezing 12/18/2012 Gastrointestinal No hemorrhoids 12/18/2012 Gastrointestinal No hepatitis 12/18/2012 Gastrointestinal No abdominal pain 12/18/2012 Gastrointestinal No constipation 12/18/2012 Gastrointestinal No diarrhea 12/18/2012 Gastrointestinal No gastroesophageal reflux 04/0 11/2012 Gastrointestinal No melena 12/18/2012 Gastrointestinal No nausea 12/18/2012 Gastrointestinal No vomiting 12/18/2012 Genitourinary/Nephrology No dysuria 013 Genitourinary/Nephrology No nocturia 013 Genitourinary/Nephrology No urinary incontinence 12/18/2012 Musculoskeletal No muscle weakness 12/18/2012 Musculoskeletal No myalgias 12/18/2012 Musculoskeletal No stiffness 12/18/2012 Musculoskeletal No swelling 12/18/2012 Dermatologic No rash 12/18/2012 Dermatologic No scar 12/18/2012 Neurologic No dizziness 12/18/2012 Neurologic No headache 12/18/2012 Neurologic No neck pain 12/18/2012 Neurologic No syncope 12/18/2012 Psychiatric No anxiety 12/18/2012 Psychiatric No depression 12/18/2012 Endocrine No goiter 12/18/2012 Endocrine No hyperglycemia 12/18/2012 Endocrine No hypoglycemia 12/18/2012 Hematologic/Lymphatic No abnormal ecchymoses 11/2012 Hematologic/Lymphatic No petechiae 12/18/2012 Hematologic/Lymphatic No abnormal bleeding and b ruising 12/18/2012 Hematologic/Lymphatic No anemia 12/18/2012 Hematologic/Lymphatic No lymph node enlargement/ mass 12/18/2012 Constitutional No recent illness 01/30/2012 Musculoskeletal No shoulder pain 01/30/2012 Musculoskeletal No bone pain 01/30/2012 Musculoskeletal No back pain 01/30/2012 Musculoskeletal No low back pain 01/30/2012 Dermatologic No mole change 01/30/2012 Dermatologic No rash 01/30/2012 Dermatologic No sores 01/30/2012 Neurologic No seizure 01/30/2012 Neurologic No alteration of consciousness 0 01/30/2012 Psychiatric No alcohol abuse 01/30/2012 Psychiatric No drug abuse 01/30/2012 Psychiatric No anxiety 01/30/2012 Psychiatric No stress 01/30/2012 Psychiatric No depression 01/30/2012 Endocrine No diabetes mellitus type 1 01/15 Endocrine No diabetes mellitus type 2 01/15 Endocrine No hyperglycemia 01/30/2012 Endocrine No hyperthyroidism 01/30/2012 Allergy/Immunology No anaphylactoid reaction Allergy/Immunology No angioedema 01/30/2012 Allergy/Immunology No food allergy 01/30/2012 Constitutional No weight gain/obesity 2 Constitutional No weight loss 01/30/2012 Constitutional No fever 01/30/2012 Ears/Nose/Throat/Neck No headache 01/30/2012 Ears/Nose/Throat/Neck No nasal discharge 012 Ears/Nose/Throat/Neck No nasal allergies 012 Ears/Nose/Throat/Neck No otalgia 01/30/2012 Ears/Nose/Throat/Neck No sore throat 01/30/2012 Cardiovascular No cardiac murmur 01/30/2012 Cardiovascular No chest pain/pressure 2 Cardiovascular No hypertension 01/30/2012 Respiratory No cigarette smoking 01/30/2012 Respiratory No asthma 01/30/2012 Respiratory No cough 01/30/2012 Gastrointestinal No abdominal pain 01/30/2012 Gastrointestinal No gastroesophageal reflux 01/15 Gastrointestinal No nausea 01/30/2012 Gastrointestinal No vomiting 01/30/2012 Genitourinary/Nephrology No 012 Genitourinary/Nephrology No menstrual irregulari ty 01/30/2012 Genitourinary/Nephrology No urinary urgency 01/15 Genitourinary/Nephrology No urinary frequency Genitourinary/Nephrology No urinary retention/he sitancy 01/30/2012 Genitourinary/Nephrology No urinary incontinence 01/30/2012 Genitourinary/Nephrology No vaginal discharge Physical Exam Exam Name System Name Item Name Status Result Effectiv e Dates Notes Full Exam - General Constitutional general appearance Overall: well nourished 10/09/2018 None Full Exam - General Constitutional general appearance Overall: well developed 10/09/2018 None Full Exam - General Constitutional general appearance Overall: in no acute distress 10/09/2018 None Full Exam - General Neurologic mental status Overall: alert 10/09/2018 None Full Exam - General Neurologic mental status Overall: oriented 10/09/2018 None Full Exam - General Psychiatric mood and affect Overall: normal mood and affect 10/09/2018 None Full Exam - General Respiratory auscultation Overall: breath sounds clear bilaterally 10/09/2018 None Full Exam - General Cardiovascular auscultation of heart Overall: regular rate 10/09/2018 None Full Exam - General Cardiovascular auscultation of heart Overall: normal heart sounds 10/09/2018 None Full Exam - General Cardiovascular auscultation of heart Overall: no murmurs 10/09/2018 None Full Exam - General Neck inspection of neck Overall: no masses 10/09/2018 None Full Exam - General Neck inspection of neck Overall: normal size 10/09/2018 None Full Exam - General Ears/Nose/Throat otoscopic exam Overall: external auditory canals clear 10/09/2018 None Full Exam - General Ears/Nose/Throat otoscopic exam Overall: tympanic membranes clear 10/09/2018 None Full Exam - General Ears/Nose/Throat internal nose Overall: bilateral nasal cavities clear 10/09/2018 None Full Exam - General Ears/Nose/Throat oral cavity/pharynx /larynx Overall: oral mucosa clear 10/09/2018 None Full Exam - General Cardiovascular extremities Overall: no clubbing 10/09/2018 None Full Exam - General Cardiovascular extremities Overall: No edema 10/09/2018 None Full Exam - General Cardiovascular extremities Overall: No cyanosis 10/09/2018 None Full Exam - General Abdomen abdominal exam Overall: no masses 10/09/2018 None Full Exam - General Abdomen abdominal exam Overall: no tenderness 10/09/2018 None Full Exam - General Abdomen abdominal exam Overall: normal bowel sounds 10/09/2018 None Full Exam - General Abdomen abdominal exam Overall: soft 10/09/2018 None Full Exam - General Musculoskeletal gait and station Overall: normal gait 10/09/2018 None Full Exam - General Musculoskeletal gait and station Overall: normal station 10/09/2018 None Full Exam - General Constitutional general appearance Overall: well nourished 10/17/2017 None Full Exam - General Constitutional general appearance Overall: well developed 10/17/2017 None Full Exam - General Constitutional general appearance Overall: in no acute distress 10/17/2017 None Full Exam - General Neurologic mental status Overall: alert 10/17/2017 None Full Exam - General Neurologic mental status Overall: oriented 10/17/2017 None Full Exam - General Psychiatric mood and affect Overall: normal mood and affect 10/17/2017 None Full Exam - General Ears/Nose/Throat otoscopic exam Overall: external auditory canals clear 10/17/2017 None Full Exam - General Ears/Nose/Throat otoscopic exam Overall: tympanic membranes clear 10/17/2017 None Full Exam - General Ears/Nose/Throat internal nose Overall: bilateral nasal cavities clear 10/17/2017 None Full Exam - General Ears/Nose/Throat oral cavity/pharynx /larynx Overall: oral mucosa clear 10/17/2017 None Full Exam - General Neck inspection of neck Overall: normal size 10/17/2017 None Full Exam - General Neck inspection of neck Overall: no masses 10/17/2017 None Full Exam - General Respiratory auscultation Overall: breath sounds clear bilaterally 10/17/2017 None Full Exam - General Cardiovascular auscultation of heart Overall: regular rate 10/17/2017 None Full Exam - General Cardiovascular auscultation of heart Overall: normal heart sounds 10/17/2017 None Full Exam - General Cardiovascular auscultation of heart Overall: no murmurs 10/17/2017 None Full Exam - General Cardiovascular extremities Overall: no clubbing 10/17/2017 None Full Exam - General Cardiovascular extremities Overall: No cyanosis 10/17/2017 None Full Exam - General Cardiovascular extremities Edema present: non-pitting 10/17/2017 None Full Exam - General Abdomen abdominal exam Overall: no masses 10/17/2017 None Full Exam - General Abdomen abdominal exam Overall: no tenderness 10/17/2017 None Full Exam - General Abdomen abdominal exam Overall: normal bowel sounds 10/17/2017 None Full Exam - General Abdomen abdominal exam Overall: soft 10/17/2017 None Full Exam - General Chest/Breast breast and axillae palpation Overall: breasts non-tender 10/17/2017 None Full Exam - General Chest/Breast breast and axillae palpation Overall: no masses 10/17/2017 None Full Exam - General Chest/Breast breast and axillae palpation Overall: axillae non-tender 10/17/2017 None Full Exam - General Chest/Breast breast and axillae palpation Overall: no nipple discharge 10/17/2017 None Full Exam - General Genitourinary uterus Overall: normal size 10/17/2017 None Full Exam - General Genitourinary cervix Overall: no discharge 10/17/2017 None Full Exam - General Genitourinary labia and vagina Overall: normal hair distribution 10/17/2017 None Full Exam - General Genitourinary labia and vagina Overall: no lesions 10/17/2017 None Full Exam - General Genitourinary adnexa/paramet deandre Overall: no tenderness 10/17/2017 None Full Exam - General Musculoskeletal gait and station Overall: normal gait 10/17/2017 None Full Exam - General Musculoskeletal gait and station Overall: normal station 10/17/2017 None Full Exam - General Constitutional general appearance Overall: well nourished 04/26/2017 None Full Exam - General Constitutional general appearance Overall: well developed 04/26/2017 None Full Exam - General Constitutional general appearance Overall: in no acute distress 04/26/2017 None Full Exam - General Integument inspection of skin Location: back 04/26/2017 right lower with 3mm irregular dark nevus Full Exam - General Constitutional general appearance Overall: well nourished 10/16/2016 None Full Exam - General Constitutional general appearance Overall: well developed 10/16/2016 None Full Exam - General Constitutional general appearance Overall: in no acute distress 10/16/2016 None Full Exam - General Neurologic mental status Overall: alert 10/16/2016 None Full Exam - General Neurologic mental status Overall: oriented 10/16/2016 None Full Exam - General Psychiatric mood and affect Overall: normal mood and affect 10/16/2016 None Full Exam - General Integument inspection of skin Location: back 10/16/2016 right low back with 3mm asymmetric mole Full Exam - General Constitutional general appearance Overall: well nourished 10/14/2015 None Full Exam - General Constitutional general appearance Overall: well developed 10/14/2015 None Full Exam - General Constitutional general appearance Overall: in no acute distress 10/14/2015 None Full Exam - General Ears/Nose/Throat otoscopic exam Overall: external auditory canals clear 10/14/2015 None Full Exam - General Ears/Nose/Throat otoscopic exam Overall: tympanic membranes clear 10/14/2015 None Full Exam - General Ears/Nose/Throat internal nose Overall: bilateral nasal cavities clear 10/14/2015 None Full Exam - General Ears/Nose/Throat oral cavity/pharynx /larynx Overall: oral mucosa clear 10/14/2015 None Full Exam - General Neck inspection of neck Overall: normal size 10/14/2015 None Full Exam - General Neck inspection of neck Overall: no masses 10/14/2015 None Full Exam - General Respiratory auscultation Overall: breath sounds clear bilaterally 10/14/2015 None Full Exam - General Neurologic mental status Overall: alert 10/14/2015 None Full Exam - General Neurologic mental status Overall: oriented 10/14/2015 None Full Exam - General Psychiatric mood and affect Overall: normal mood and affect 10/14/2015 None Full Exam - General Abdomen abdominal exam Overall: no masses 10/14/2015 None Full Exam - General Abdomen abdominal exam Overall: no tenderness 10/14/2015 None Full Exam - General Abdomen abdominal exam Overall: normal bowel sounds 10/14/2015 None Full Exam - General Abdomen abdominal exam Overall: soft 10/14/2015 None Full Exam - General Cardiovascular auscultation of heart Overall: regular rate 10/14/2015 None Full Exam - General Cardiovascular auscultation of heart Overall: normal heart sounds 10/14/2015 None Full Exam - General Cardiovascular auscultation of heart Overall: no murmurs 10/14/2015 None Full Exam - General Cardiovascular extremities Overall: no clubbing 10/14/2015 None Full Exam - General Cardiovascular extremities Overall: No edema 10/14/2015 None Full Exam - General Cardiovascular extremities Overall: No cyanosis 10/14/2015 None Full Exam - General Musculoskeletal gait and station Overall: normal gait 10/14/2015 None Full Exam - General Musculoskeletal gait and station Overall: normal station 10/14/2015 None Full Exam - General Constitutional general appearance Overall: well nourished 10/26/2014 None Full Exam - General Constitutional general appearance Overall: in no acute distress 10/26/2014 None Full Exam - General Constitutional general appearance Overall: well developed 10/26/2014 None Full Exam - General Ears/Nose/Throat otoscopic exam Overall: tympanic membranes clear 10/26/2014 None Full Exam - General Ears/Nose/Throat otoscopic exam Left external auditory canal: partial cerumen occlusion 10/26/2014 None Full Exam - General Ears/Nose/Throat otoscopic exam Right external auditory canal: partial cerumen occlusion 10/26/2014 None Full Exam - General Ears/Nose/Throat otoscopic exam Left tympanic membrane: a normal exam 10/26/2014 None Full Exam - General Ears/Nose/Throat otoscopic exam Right tympanic membrane: a normal exam 10/26/2014 None Full Exam - General Ears/Nose/Throat oral cavity/pharynx /larynx Overall: oral mucosa clear 10/26/2014 None Full Exam - General Neck thyroid Overall: normal size 10/26/2014 None Full Exam - General Neck thyroid Overall: normal consistency 10/26/2014 None Full Exam - General Neck thyroid Overall: nontender 10/26/2014 None Full Exam - General Neck thyroid Overall: no mass lesions 10/26/2014 None Full Exam - General Respiratory auscultation Overall: breath sounds clear bilaterally 10/26/2014 None Full Exam - General Cardiovascular auscultation of heart Overall: regular rate 10/26/2014 None Full Exam - General Cardiovascular auscultation of heart Overall: normal heart sounds 10/26/2014 None Full Exam - General Cardiovascular auscultation of heart Overall: no murmurs 10/26/2014 None Full Exam - General Chest/Breast breast and axillae palpation Overall: breasts non-tender 10/26/2014 None Full Exam - General Chest/Breast breast and axillae palpation Overall: no masses 10/26/2014 None Full Exam - General Chest/Breast breast and axillae palpation Overall: axillae non-tender 10/26/2014 None Full Exam - General Chest/Breast breast and axillae palpation Overall: no nipple discharge 10/26/2014 None Full Exam - General Genitourinary labia and vagina Overall: normal hair distribution 10/26/2014 None Full Exam - General Genitourinary labia and vagina Overall: no lesions 10/26/2014 None Full Exam - General Genitourinary cervix Overall: no discharge 10/26/2014 None Full Exam - General Genitourinary adnexa/paramet deandre Overall: no tenderness 10/26/2014 None Full Exam - General Lymphatic neck nodes Overall: anterior cervical chain benign 10/26/2014 None Full Exam - General Lymphatic neck nodes Overall: posterior cervical chain benign 10/26/2014 None Full Exam - General Psychiatric mood and affect Overall: normal mood and affect 10/26/2014 None Full Exam - General Eyes conjunctiva/ey elids Overall: conjunctiva clear 10/26/2014 None Full Exam - General Eyes conjunctiva/ey elids Overall: cornea clear 10/26/2014 None Full Exam - General Eyes conjunctiva/ey elids Overall: eyelids normal 10/26/2014 None Full Exam - General Eyes pupils and irises Overall: pupils equal, round, reactive to light and accomodation 10/26/2014 None Full Exam - General Ears/Nose/Throat otoscopic exam Overall: external auditory canals clear 10/26/2014 None Full Exam - General Ears/Nose/Throat internal nose Overall: bilateral nasal cavities clear 10/26/2014 None Full Exam - General Neck inspection of neck Overall: normal size 10/26/2014 None Full Exam - General Neck inspection of neck Overall: normal appearance 10/26/2014 None Full Exam - General Neck inspection of neck Overall: no masses 10/26/2014 None Full Exam - General Cardiovascular extremities Overall: no clubbing 10/26/2014 None Full Exam - General Cardiovascular extremities Overall: No edema 10/26/2014 None Full Exam - General Cardiovascular extremities Overall: No cyanosis 10/26/2014 None Full Exam - General Abdomen abdominal exam Overall: no tenderness 10/26/2014 None Full Exam - General Abdomen abdominal exam Overall: soft 10/26/2014 None Full Exam - General Abdomen abdominal exam Overall: no masses 10/26/2014 None Full Exam - General Abdomen abdominal exam Overall: normal bowel sounds 10/26/2014 None Full Exam - General Musculoskeletal right upper extremity Overall: right shoulder benign 10/26/2014 None Full Exam - General Musculoskeletal right upper extremity Overall: right elbow benign 10/26/2014 None Full Exam - General Musculoskeletal right upper extremity Overall: right wrist benign 10/26/2014 None Full Exam - General Musculoskeletal left upper extremity Overall: normal left shoulder 10/26/2014 None Full Exam - General Musculoskeletal left upper extremity Overall: normal left elbow 10/26/2014 None Full Exam - General Musculoskeletal left upper extremity Overall: normal left wrist 10/26/2014 None Full Exam - General Musculoskeletal right lower extremity Overall: right knee benign 10/26/2014 None Full Exam - General Musculoskeletal right lower extremity Overall: right ankle benign 10/26/2014 None Full Exam - General Musculoskeletal right lower extremity Overall: right foot benign 10/26/2014 None Full Exam - General Musculoskeletal left lower extremity Overall: left knee benign 10/26/2014 None Full Exam - General Musculoskeletal left lower extremity Overall: left ankle benign 10/26/2014 None Full Exam - General Musculoskeletal left lower extremity Overall: left foot benign 10/26/2014 None Full Exam - General Musculoskeletal spine, ribs and pelvis Overall: good posture 10/26/2014 None Full Exam - General Musculoskeletal spine, ribs and pelvis Overall: ribs benign 10/26/2014 None Full Exam - General Musculoskeletal spine, ribs and pelvis Overall: spine benign 10/26/2014 None Full Exam - General Musculoskeletal gait and station Overall: normal gait 10/26/2014 None Full Exam - General Musculoskeletal gait and station Overall: normal station 10/26/2014 None Full Exam - General Integument inspection of skin Overall: no rash, lesions 10/26/2014 None Full Exam - General Neurologic deep tendon reflexes Overall: deep tendon reflexes intact 10/26/2014 None Full Exam - General Neurologic mental status Overall: alert 10/26/2014 None Full Exam - General Neurologic mental status Overall: oriented 10/26/2014 None Full Exam - General Neurologic cranial nerves Overall: cranial nerves 1-12 intact 10/26/2014 None Full Exam - General Psychiatric speech Overall: normal quality, no aphasia 10/26/2014 None Full Exam - General Constitutional general appearance Overall: well nourished 12/04/2013 None Full Exam - General Constitutional general appearance Overall: well developed 12/04/2013 None Full Exam - General Constitutional general appearance Overall: in no acute distress 12/04/2013 None Full Exam - General Neurologic mental status Overall: alert 12/04/2013 None Full Exam - General Neurologic mental status Overall: oriented 12/04/2013 None Full Exam - General Psychiatric mood and affect Overall: normal mood and affect 12/04/2013 None Full Exam - General Respiratory auscultation Overall: breath sounds clear bilaterally 12/04/2013 None Full Exam - General Cardiovascular auscultation of heart Overall: regular rate 12/04/2013 None Full Exam - General Cardiovascular auscultation of heart Overall: normal heart sounds 12/04/2013 None Full Exam - General Cardiovascular auscultation of heart Overall: no murmurs 12/04/2013 None Full Exam - General Cardiovascular extremities Overall: no clubbing 12/04/2013 None Full Exam - General Cardiovascular extremities Overall: No edema 12/04/2013 None Full Exam - General Cardiovascular extremities Overall: No cyanosis 12/04/2013 None Full Exam - General Abdomen abdominal exam Overall: no masses 12/04/2013 None Full Exam - General Abdomen abdominal exam Overall: no tenderness 12/04/2013 None Full Exam - General Abdomen abdominal exam Overall: normal bowel sounds 12/04/2013 None Full Exam - General Abdomen abdominal exam Overall: soft 12/04/2013 None Full Exam - General Constitutional general appearance Overall: well nourished 12/18/2012 None Full Exam - General Constitutional general appearance Overall: well developed 12/18/2012 None Full Exam - General Constitutional general appearance Overall: in no acute distress 12/18/2012 None Full Exam - General Respiratory auscultation Overall: breath sounds clear bilaterally 12/18/2012 None Full Exam - General Cardiovascular auscultation of heart Overall: regular rate 12/18/2012 None Full Exam - General Cardiovascular auscultation of heart Overall: normal heart sounds 12/18/2012 None Full Exam - General Cardiovascular auscultation of heart S3 (ventricul ar gallop): present 12/18/2012 None Full Exam - General Cardiovascular auscultation of heart Murmur: previously known murmur unchanged 12/18/2012 None Full Exam - General Neurologic mental status Overall: alert 12/18/2012 None Full Exam - General Neurologic mental status Overall: oriented 12/18/2012 None Full Exam - General Psychiatric mood and affect Overall: normal mood and affect 12/18/2012 None Full Exam - General Genitourinary uterus Overall: normal size 12/18/2012 None Full Exam - General Genitourinary cervix Overall: no discharge 12/18/2012 None Full Exam - General Genitourinary labia and vagina Overall: normal hair distribution 12/18/2012 None Full Exam - General Genitourinary labia and vagina Overall: no lesions 12/18/2012 None Full Exam - General Genitourinary adnexa/paramet deandre Overall: no tenderness 12/18/2012 None Full Exam - General Abdomen abdominal exam Overall: no masses 12/18/2012 None Full Exam - General Abdomen abdominal exam Overall: no tenderness 12/18/2012 None Full Exam - General Abdomen abdominal exam Overall: normal bowel sounds 12/18/2012 None Full Exam - General Abdomen abdominal exam Overall: soft 12/18/2012 None Full Exam - General Chest/Breast breast and axillae palpation Overall: breasts non-tender 12/18/2012 None Full Exam - General Chest/Breast breast and axillae palpation Overall: no masses 12/18/2012 None Full Exam - General Chest/Breast breast and axillae palpation Overall: axillae non-tender 12/18/2012 None Full Exam - General Chest/Breast breast and axillae palpation Overall: no nipple discharge 12/18/2012 None Full Exam - General Constitutional general appearance Overall: well nourished 01/30/2012 None Full Exam - General Constitutional general appearance Overall: well developed 01/30/2012 None Full Exam - General Constitutional general appearance Overall: in no acute distress 01/30/2012 None Full Exam - General Eyes conjunctiva/ey elids Overall: conjunctiva clear 01/30/2012 None Full Exam - General Eyes conjunctiva/ey elids Overall: cornea clear 01/30/2012 None Full Exam - General Eyes conjunctiva/ey elids Overall: eyelids normal 01/30/2012 None Full Exam - General Eyes pupils and irises Overall: pupils equal, round, reactive to light and accomodation 01/30/2012 None Full Exam - General Ears/Nose/Throat otoscopic exam Overall: external auditory canals clear 01/30/2012 None Full Exam - General Ears/Nose/Throat otoscopic exam Overall: tympanic membranes clear 01/30/2012 None Full Exam - General Ears/Nose/Throat lips/teeth/gin giva Overall: benign lips 01/30/2012 None Full Exam - General Ears/Nose/Throat lips/teeth/gin giva Overall: normal dentition 01/30/2012 None Full Exam - General Ears/Nose/Throat lips/teeth/gin giva Overall: benign gingiva 01/30/2012 None Full Exam - General Abdomen abdominal exam Overall: soft 01/30/2012 None Full Exam - General Abdomen abdominal exam Overall: no masses 01/30/2012 None Full Exam - General Abdomen abdominal exam Overall: normal bowel sounds 01/30/2012 None Full Exam - General Genitourinary cervix Overall: no discharge 01/30/2012 None Full Exam - General Genitourinary labia and vagina Overall: normal hair distribution 01/30/2012 None Full Exam - General Genitourinary labia and vagina Overall: no lesions 01/30/2012 None Full Exam - General Genitourinary adnexa/paramet deandre Overall: no tenderness 01/30/2012 None Full Exam - General Lymphatic neck nodes Overall: anterior cervical chain benign 01/30/2012 None Full Exam - General Lymphatic neck nodes Overall: posterior cervical chain benign 01/30/2012 None Full Exam - General Integument inspection of skin Overall: no rash, lesions 01/30/2012 None Full Exam - General Psychiatric orientation/co nsciousness Overall: oriented to person, place and time 01/30/2012 None Full Exam - General Ears/Nose/Throat oral cavity/pharynx /larynx Overall: oropharyngeal mucosa clear 01/30/2012 None Full Exam - General Respiratory auscultation Overall: breath sounds clear bilaterally 01/30/2012 None Full Exam - General Respiratory respiratory effort/rhythm Overall: no retractions 01/30/2012 None Full Exam - General Respiratory respiratory effort/rhythm Overall: normal rate 01/30/2012 None Full Exam - General Cardiovascular auscultation of heart Overall: regular rate 01/30/2012 None Full Exam - General Cardiovascular auscultation of heart Overall: normal heart sounds 01/30/2012 None Full Exam - General Chest/Breast breast and axillae palpation Overall: breasts non-tender 01/30/2012 None Full Exam - General Chest/Breast breast and axillae palpation Overall: no masses 01/30/2012 None Full Exam - General Chest/Breast breast and axillae palpation Overall: axillae non-tender 01/30/2012 None Full Exam - General Chest/Breast breast and axillae palpation Overall: no nipple discharge 01/30/2012 None Full Exam - General Chest/Breast breast/chest inspection Overall: breasts to symmetric and without lesions 01/30/2012 None Full Exam - General Chest/Breast breast/chest inspection Overall: normal chest shape 01/30/2012 None Full Exam - General Abdomen abdominal exam Overall: no tenderness 01/30/2012 None Procedures Procedure Codes Date SPECIMEN HANDLING OFFICE-LAB CPT-4: 51987 EXC TR-EXT B9+TRACE 0.5 CM< CPT-4: 59426 04/26 Vital Signs Date Vital History of Present Illness Symptom Name Status Result Effective Date Notes Pap Smear last normal performed on 10-17-17 10/09/2018 None Menstrual History last menstrual period 2 weeks ago 10/09/2018 None Control oral contraceptives 10/09/2018 No ne Menstrual History regular menses 10/09/2018 Non e Menstrual History period length of 5 days 10/09/2018 None Menstrual History normal flow 10/09/2018 None Lifestyle no history of physical abuse 10/09/2018 None Lifestyle no history of sexual abuse 10/09/2018 None Lifestyle no history of verbal abuse 10/09/2018 None Lifestyle regular seatbelt use 10/09/2018 None Lifestyle family supportiv e of relationship 10/09/2018 None Lifestyle satisfactory wor k experience 10/09/2018 None Lifestyle normal sleep patterns 10/09/2018 None Nutrition and Exercise normal weight 10/09/2018 None Nutrition and Exercise balanced nutrition 10/09/2018 None Nutrition and Exercise moderate exercise 10/09/2018 None well woman exam (18-39 years) Pap Smear last normal performed on 10-26-14 10/17/2017 None well woman exam (18-39 years) Menstrual History last menstrual period 2 weeks ago 10/17/2017 None well woman exam (18-39 years) Menstrual History 28 days between periods 10/17/2017 None well woman exam (18-39 years) Menstrual History period length of 5-6 days 10/17/2017 None well woman exam (18-39 years) Menstrual History normal flow 10/17/2017 None well woman exam (18-39 years) Control oral contraceptives. 10/17/2017 Currently taking sprintec well woman exam (18-39 years) Lifestyle no history of physical abuse 10/17/2017 None well woman exam (18-39 years) Lifestyle no history of sexual abuse 10/17/2017 None well woman exam (18-39 years) Lifestyle no history of verbal abuse 10/17/2017 None well woman exam (18-39 years) Lifestyle family supportive of relationship 10/17/2017 None well woman exam (18-39 years) Lifestyle satisfactory work experience 10/17/2017 None well woman exam (18-39 years) Lifestyle normal amount of stress 10/17/2017 None well woman exam (18-39 years) Lifestyle satisfactory marriage/partner relationship 10/17/2017 None well woman exam (18-39 years) Nutrition and Exercise normal weight 10/17/2017 None well woman exam (18-39 years) Nutrition and Exercise balanced nutrition 10/17/2017 None well woman exam (18-39 years) Nutrition and Exercise minimal exercise 10/17/2017 None well woman exam (18-39 years) Reproductive System Development normal development 10/17/2017 None mole check Location-Major on the back 04/26/2017 None well woman exam (18-39 years) Pap Smear last normal performed on 10-26-14 10/16/2016 None well woman exam (18-39 years) Control oral contraceptives 10/16/2016 Patient need s refill of sprintec well woman exam (18-39 years) Menstrual History last menstrual period 2 weeks ago 10/16/2016 None well woman exam (18-39 years) Menstrual History regular menses 10/16/2016 None well woman exam (18-39 years) Menstrual History period length of 5-6 days 10/16/2016 None well woman exam (18-39 years) Menstrual History normal flow 10/16/2016 None well woman exam (18-39 years) Menstrual History 28 days between periods 10/16/2016 None well woman exam (18-39 years) Lifestyle no history of physical abuse 10/16/2016 None well woman exam (18-39 years) Lifestyle no history of sexual abuse 10/16/2016 None well woman exam (18-39 years) Reproductive System Development normal development 10/16/2016 None well woman exam (18-39 years) Nutrition and Exercise normal weight 10/16/2016 None well woman exam (18-39 years) Nutrition and Exercise balanced nutrition 10/16/2016 None well woman exam (18-39 years) Sexual Activity is sexually active 10/16/2016 None well woman exam (18-39 years) Sexual Activity is monogamous 10/16/2016 None well woman exam (18-39 years) Lifestyle no history of verbal abuse 10/16/2016 None well woman exam (18-39 years) Lifestyle regular seatbelt use 10/16/2016 None well woman exam (18-39 years) Lifestyle family supportive of relationship 10/16/2016 None well woman exam (18-39 years) Lifestyle satisfactory work experience 10/16/2016 None well woman exam (18-39 years) Lifestyle normal sleep patterns 10/16/2016 None well woman exam (18-39 years) Pap Smear last normal performed on 10-26-14 10/14/2015 None well woman exam (18-39 years) Control oral contraceptives. 10/14/2015 Needs refill of sprintec well woman exam (18-39 years) Menstrual History last menstrual period 1 week ago 10/14/2015 None well woman exam (18-39 years) Menstrual History regular menses 10/14/2015 None well woman exam (18-39 years) Menstrual History 28 days between periods 10/14/2015 None well woman exam (18-39 years) Menstrual History period length of 5 days 10/14/2015 None well woman exam (18-39 years) Menstrual History normal flow 10/14/2015 None well woman exam (18-39 years) Control regular use 10/14/2015 None well woman exam (18-39 years) Sexual Activity is sexually active 10/14/2015 None well woman exam (18-39 years) Sexual Activity is monogamous 10/14/2015 None well woman exam (18-39 years) Lifestyle no history of physical abuse 10/14/2015 None well woman exam (18-39 years) Lifestyle no history of sexual abuse 10/14/2015 None well woman exam (18-39 years) Lifestyle no history of verbal abuse 10/14/2015 None well woman exam (18-39 years) Lifestyle regular seatbelt use 10/14/2015 None well woman exam (18-39 years) Lifestyle family supportive of relationship 10/14/2015 None well woman exam (18-39 years) Lifestyle satisfactory work experience 10/14/2015 None well woman exam (18-39 years) Lifestyle normal sleep patterns 10/14/2015 None well woman exam (18-39 years) Lifestyle normal amount of stress 10/14/2015 None well woman exam (18-39 years) Lifestyle satisfactory marriage/partner relationship 10/14/2015 None well woman exam (18-39 years) Nutrition and Exercise normal weight 10/14/2015 None well woman exam (18-39 years) Nutrition and Exercise no eating disorder 10/14/2015 None well woman exam (18-39 years) Nutrition and Exercise moderate exercise 10/14/2015 None well woman exam (18-39 years) Reproductive System Development normal development 10/14/2015 None well woman exam (18-39 years) Health Guidance self-breast exam 10/14/2015 None well woman exam (18-39 years) Health Guidance HIV precautions 10/14/2015 None well woman exam (18-39 years) Health Guidance STD precautions 10/14/2015 None well woman exam (18-39 years) Health Guidance prevention 10/14/2015 None well woman exam (18-39 years) Health Guidance control options 10/14/2015 None well woman exam (18-39 years) Health Guidance genetic counseling 10/14/2015 None well woman exam (18-39 years) Health Guidance tobacco, drugs and alcohol avoidance 10/14/2015 None well woman exam (18-39 years) Health Guidance regular exercise 10/14/2015 None well woman exam (18-39 years) Health Guidance safety belt use 10/14/2015 None well woman exam (18-39 years) Health Guidance helmet use 10/14/2015 None well woman exam (18-39 years) Health Guidance hearing loss prevention 10/14/2015 None well woman exam (18-39 years) Health Guidance limiting UV/sun exposure 10/14/2015 None well woman exam (18-39 years) Health Guidance suicide prevention 10/14/2015 None well woman exam (18-39 years) Health Guidance depression symptoms 10/14/2015 None well woman exam (18-39 years) Health Guidance fecal occult blood testing 10/14/2015 None well woman exam (18-39 years) Menstrual History last menstrual period 3 weeks ago 10/26/2014 None well woman exam (18-39 years) Control oral contraceptives 10/26/2014 None well woman exam (18-39 years) Pap Smear last normal performed on 12-18-2012 10/26/2014 None well woman exam (18-39 years) Sexual Activity is sexually active 10/26/2014 None well woman exam (18-39 years) Sexual Activity is monogamous 10/26/2014 None well woman exam (18-39 years) Nutrition and Exercise normal weight 10/26/2014 None well woman exam (18-39 years) Reproductive System Development normal development 10/26/2014 None well woman exam (18-39 years) Cardiovascular Risk Factors diabetes mellitus 10/26/2014 None well woman exam (18-39 years) Health Guidance self-breast exam 10/26/2014 None well woman exam (18-39 years) Control none 10/26/2014 None well woman exam (18-39 years) Menstrual History regular menses 10/26/2014 None well woman exam (18-39 years) Menstrual History normal flow 10/26/2014 None well woman exam (18-39 years) Lifestyle no history of physical abuse 10/26/2014 None well woman exam (18-39 years) Lifestyle no history of sexual abuse 10/26/2014 None well woman exam (18-39 years) Lifestyle no history of verbal abuse 10/26/2014 None well woman exam (18-39 years) Lifestyle regular seatbelt use 10/26/2014 None well woman exam (18-39 years) Lifestyle normal sleep patterns 10/26/2014 None well woman exam (18-39 years) Lifestyle normal amount of stress 10/26/2014 None well woman exam (18-39 years) Nutrition and Exercise balanced nutrition 10/26/2014 None well woman exam (18-39 years) Nutrition and Exercise no eating disorder 10/26/2014 None well woman exam (18-39 years) Nutrition and Exercise regular diet 10/26/2014 None well woman exam (18-39 years) Nutrition and Exercise moderate exercise 10/26/2014 None well woman exam (18-39 years) Reproductive System Development normal thelarche 10/26/2014 None well woman exam (18-39 years) Reproductive System Development normal menarche 10/26/2014 None well woman exam (18-39 years) Reproductive System Development normal genitalia 10/26/2014 None well woman exam (18-39 years) Health Guidance prevention 10/26/2014 None well woman exam (18-39 years) Health Guidance tobacco, drugs and alcohol avoidance 10/26/2014 None well woman exam (18-39 years) Health Guidance regular exercise 10/26/2014 None well woman exam (18-39 years) Health Guidance safety belt use 10/26/2014 None well woman exam (18-39 years) Health Guidance hearing loss prevention 10/26/2014 None well woman exam (18-39 years) Health Guidance limiting UV/sun exposure 10/26/2014 None well woman exam (18-39 years) Control oral contraceptives 12/04/2013 Needs refill of sprintec well woman exam (18-39 years) Pap Smear last normal performed 1 year ago 12/04/2013 None well woman exam (18-39 years) Menstrual History last menstrual period 3 weeks ago 12/04/2013 None well woman exam (18-39 years) Menstrual History regular menses 12/04/2013 None well woman exam (18-39 years) Menstrual History period length of 4-5 days 12/04/2013 None well woman exam (18-39 years) Menstrual History 21 days between periods 12/04/2013 None well woman exam (18-39 years) Menstrual History normal flow 12/04/2013 None menstrual irregularity Quality stable 12/04/2013 None well woman exam (18-39 years) Pap Smear last normal performed on 01-30-12 12/18/2012 None well woman exam (18-39 years) Control oral contraceptives 12/18/2012 Needs refill of Sprintec well woman exam (18-39 years) Menstrual History last menstrual period 1 week ago 12/18/2012 None well woman exam (18-39 years) Menstrual History regular menses 12/18/2012 None well woman exam (18-39 years) Menstrual History period length of 4 days 12/18/2012 None well woman exam (18-39 years) Menstrual History 21-23 days between periods 12/18/2012 None well woman exam (18-39 years) Menstrual History normal flow 12/18/2012 None well woman exam (18-39 years) Pap Smear last normal performed on ne-ve-r had one done 01/30/2012 None well woman exam (18-39 years) Menstrual History last menstrual period 01-19-2012 01/30/2012 None well woman exam (18-39 years) Menstrual History regular menses 01/30/2012 None well woman exam (18-39 years) Menstrual History normal flow 01/30/2012 None well woman exam (18-39 years) Obstetrical History 0 total pregnancies 01/30/2012 None well woman exam (18-39 years) Sexual Activity is not sexually active 01/30/2012 None well woman exam (18-39 years) Lifestyle no history of physical abuse 01/30/2012 None well woman exam (18-39 years) Lifestyle no history of sexual abuse 01/30/2012 None well woman exam (18-39 years) Lifestyle no history of verbal abuse 01/30/2012 None well woman exam (18-39 years) Lifestyle regular seatbelt use 01/30/2012 None well woman exam (18-39 years) Lifestyle family supportive of relationship 01/30/2012 None well woman exam (18-39 years) Lifestyle satisfactory work experience 01/30/2012 None well woman exam (18-39 years) Lifestyle normal sleep patterns 01/30/2012 None well woman exam (18-39 years) Lifestyle normal amount of stress 01/30/2012 None well woman exam (18-39 years) Nutrition and Exercise normal weight 01/30/2012 None well woman exam (18-39 years) Nutrition and Exercise balanced nutrition 01/30/2012 None well woman exam (18-39 years) Nutrition and Exercise minimal exercise 01/30/2012 None well woman exam (18-39 years) Cardiovascular Risk Factors diabetes mellitus 01/30/2012 mother has well woman exam (18-39 years) Control none 01/30/2012 None well woman exam (18-39 years) Cardiovascular Risk Factors hypertension 01/30/2012 mother has well woman exam (18-39 years) Reproductive System Development normal development 01/30/2012 None Advance Directives No Advance Directive data Encounters Encounter Performer Location Codes Date ([id number]) PREV VISIT EST AGE 18-39 Diagnosis: Encounter for general adult medical examination without abnormal findings[ICD10: Z00.00] Diagnosis: Primary dysmenorrhea[ICD10: N94.4] Joseph RUIZ [employer] CPT-4: 59816 10/09/2018 ([id number]) PREV VISIT EST AGE 18-39 Diagnosis: Encounter for general adult medical examination without abnormal findings[ICD10: Z00.00] Diagnosis: Encounter for gynecological examination (general) (routine) without abnormal findings[ICD10: Z01.419] Diagnosis: Primary dysmenorrhea[ICD10: N94.4] Joseph RUIZ [employer] CPT-4: 34712 10/17/2017 ([id number]) PREV VISIT EST AGE 18-39 Diagnosis: Encounter for general adult medical examination without abnormal findings[ICD10: Z00.00] Diagnosis: Primary dysmenorrhea[ICD10: N94.4] Diagnosis: Melanocytic nevi of trunk[ICD10: D22.5] Joseph RUIZ [employer] CPT-4: 25522 10/16/2016 ([id number]) PREV VISIT EST AGE 18-39 Diagnosis: Encounter for general adult medical examination without abnormal findings[ICD10: Z00.00] Diagnosis: Primary dysmenorrhea[ICD10: N94.4] Joseph RUIZ [employer] CPT-4: 24843 10/14/2015 ([id number]) PREV VISIT EST AGE 18-39 Diagnosis: ROUTINE GYNE EXAM[ICD9: V72.31] Diagnosis: ROUTINE MEDICAL EXAM[ICD9: V70.0] Lynda BENJAMIN DO [employer] CPT-4: 60150 10/26/2014 ([id number]) OFFICE/OUTPATIENT VISIT EST Diagnosis: DYSMENORRHEA[ICD9: 625.3] Joseph BENJAMIN DO [employer] CPT-4: 74495 12/04/2013 ([id number]) PREV VISIT EST AGE 18-39 Diagnosis: ROUTINE MEDICAL EXAM[ICD9: V70.0] Diagnosis: ROUTINE GYNE EXAM[ICD9: V72.31] Diagnosis: Dysmenorrhea[ICD9: 625.3] Joseph BENJAMIN DO [employer] CPT-4: 26616 12/18/2012 ([id number]) SPECIMEN HANDLING OFFICE-LAB Diagnosis: [ICD9: ] Diagnosis: [ICD9: ] Diagnosis: [ICD9: ] Joseph BENJAMIN DO [employer] CPT-4: 55711 12/18/2012 ([id number]) PREV VISIT NEW AGE 18-39 Diagnosis: ROUTINE MEDICAL EXAM[ICD9: V70.0] Diagnosis: Visit for routine manager gyn exam[ICD9: V72.31] Itzel BENJAMIN DO [employer] CPT-4: 54222 01/30/2012 ([id number]) SPECIMEN HANDLING Diagnosis: [ICD9: ] Diagnosis: [ICD9: ] Itzel BENJAMIN DO [employer] CPT-4: 53272 01/30/2012 Plan of Care Planned Activity Notes Codes Status Date Visit Diagnosis Plan: Encounter for general adult medical examination without abnormal findings Discussion: On PNV Mediterranean diet Resume exercise--combo of cardio/weight bearing exercise Recommend updated TdaP ICD-9 : V70.0 ICD-10 : Z00.00 10/09/2018 Appointment: Joseph Benjamin WPtel: [phone] [facility] [id number] Ref# [id number] for annual [phone] Annual Well Visit 10/09/2018 Visit Diagnosis Plan: Encounter for gynecological examination (general) (routine) without abnormal findings Discussion: Pap done Add PNV ICD-9 : V72.31 ICD-10 : Z01.419 10/17/2017 Visit Diagnosis Plan: Encounter for general adult medical examination without abnormal findings Discussion: Increase Exercise Discussed compression socks for work since sits ICD-9 : V70.0 ICD-10 : Z00.00 10/17/2017 Appointment: Joseph Benjamin WPtel: [address] [place] [address] Annual Well Visit 10/17/2017 Patient Education: Patient [...] Z48.02 05/07/2017 Appointment: Joseph Benjamin WPtel: [address] [place] [address] Suture Removal 05/07/2017 Patient Education: Patient Medication Summary Completed 05/07/2017 Visit Diagnosis Plan: Melanocytic nevi of trunk Discussion: Excised with 4-0 punch biopsy--sutures x2 then steri strips and opsite Return in 10 days for suture removal ICD-9 : 216.5 ICD-10 : D22.5 04/26/2017 Appointment: Joseph Benjamin WPtel: [facility] [place] [id number] 8/9 lm~sl ACUTE ILLNESS 04/26/2017 Patient Education: Patient Medication Summary Completed 04/26/2017 Visit Diagnosis Plan: Melanocytic nevi of trunk Discussion: Return for removal ICD-9 : 216.5 ICD-10 : D22.5 10/16/2016 Visit Diagnosis Plan: Primary dysmenorrhea Discussion: Continue sprintec ICD-9 : 625.3 ICD-10 : N94.4 10/16/2016 Appointment: Joseph Benjamin WPtel: [facility] 10/13 lm`sl 10/16 confirmed `sl Annual Well Visit 10/16/2016 Patient Education: Patient Medication Summary Completed 10/16/2016 Visit Plan: Continue sprintec Will plan on Pap smear next year Gets lab done in March at work 10/14/2015 Appointment: Joseph Benjamin WPtel: [address] [place], [place] [phone] 10/13/15 appt confirmed cn Annual Well Visit 10/14/2015 Patient Education: Patient Medication Summary Completed 10/14/2015 Appointment: Lynda Mahoney WPtel: [address] [place] [address] Annual Well Visit 10/26/2014 Patient Education: Patient Medication Summary Completed 10/26/2014 Patient Education: ConsumerCare - Antibiotics, Analgesics 18+, Oral Contraceptives F 18+ Completed 10/26/2014 Visit Plan: Continue sprintec 12/04/2013 Appointment: Joseph Benjamin WPtel: [address] [place], [place] [phone] PAP 12/04/2013 Patient Education: Patient Medication Summary Completed 12/04/2013 Visit Plan: Pap done Continue Sprintec 12/18/2012 Appointment: Joseph Benjamin WPtel: [address] [place], [place] [phone] PAP 12/18/2012 Patient Education: Patient Medication Summary Completed 12/18/2012 Visit Plan: Discussed the desire for oral contraception. Discussed that certain oral antibiotics can cause the control pill to be less effective. Risk factors advised and recommend reading patient handout that comes with the medication. Discussed usage and that if she has questions she can always call our office. Further recommended the use of barrier protection such as condoms to prevent spread of sexually transmitted diseases. Pt. verbalized understanding. 01/30/2012 Appointment: Itzel Arana WPtel: [address] [place], [place] [phone] [place] NEW PATIENT 01/30/2012 Patient Education: Patient Medication Summary Completed 01/30/2012 Instructions Comment . Continue sprintec Will plan on Pap smear next year Gets lab done in March at work . Pap done Continue [facility] . Discussed the desire for o ral contraception. Discussed that certain oral antibiotics can cause the control pill to be less effective. Risk factors advised and recommend reading patient handout that comes with the medication. Discussed usage and that if she has questions she can always call our office. Further recommended the use of barrier protection such as condoms to prevent spread of sexually transmitted diseases. Pt. verbalized understanding. . Continue [facility]
--- OUTSIDE RECORDS SUMMARY | 2023-06-04 10:41 | XMS REPORT | CCD ---
Author Author Danielle Arana APRN Organization JOSEPH Luis DO [facility] Address [address] [place] [address] Phone Care Team Providers Care Senior Cyber Security Analyst Name Role Phone Joseph Benjamin D.O., PP Unavail able CCM Unavailable Summary Purpose Interface Exchange Insurance Providers Payer name Policy type / Coverage type Covered libertarian ID Effective Begin Date Effective End Date CIGNA Commercial Insurance [id number] Unk nown Family history Grandmother Diagnosis Age At Onset Uterine Cancer Unknown Mother Diagnosis Age At Onset Diabetes mellitus Type 2 Unknown Hypertension Unknown Social History Social History Element Codes Description Effec tive Dates Marital status Unknown Single 01/30/2012 Employment Unknown Currently employed [address]: 164773872 Has never s moked or chewed tobacco [...] Sprintec (28) 0.25 mg-35 mcg tablet RxNorm: 130443 TAKE ONE TABLET BY MOUTH ONCE DAILY 0 10/21/19 20 Active Sprintec (28) 0.25 mg-35 mcg tablet RxNorm: 772412 TAKE ONE TABLET BY MOUTH ONCE DAILY 9 10/08/19 20 Inactive Sprintec (28) 0.25 mg-35 mcg tablet RxNorm: 804145 1 Tablet(s) PO QD 8 10/15/19 19 Inactive Sprintec (28) 0.25 mg-35 mcg tablet RxNorm: 374181 1 Tablet(s) PO QD 7 10/16/19 18 Inactive Sprintec (28) 0.25 mg-35 mcg tablet RxNorm: 544249 1 Tablet(s) PO QD 6 10/30/19 17 Inactive Sprintec (28) 0.25 mg-35 mcg tablet RxNorm: 152462 1 Tablet(s) PO QD 5 10/13/19 16 Inactive Sprintec (28) 0.25 mg-35 mcg tablet RxNorm: 518292 1 Tablet(s) PO QD 4 10/25/19 15 Inactive Sprintec (28) 0.25 mg-35 mcg tablet RxNorm: 795352 1 Tablet(s) PO QD 4 12/04/19 14 Inactive Sprintec (28) 0.25 mg-35 mcg tablet RxNorm: 374204 1 Tablet(s) PO QD 3 11/19/19 14 Inactive Sprintec (28) 0.25 mg-35 mcg tablet RxNorm: 837991 1 Tablet(s) PO QD 2 12/18/19 13 Inactive Medication Administered No Medication Administered data Procedures Procedure Codes Date SPECIMEN HANDLING OFFICE-LAB CPT-4: 06385 EXC TR-EXT B9+TRACE 0.5 CM< CPT-4: 58654 04/26 Vital Signs Date Vital Reason For [...] 01/30/2012 Encounters Encounter Performer Location Codes Date (10044) PREV VISIT EST AGE 18-39 Diagnosis: Encounter for general adult medical examination without abnormal findings[ICD10: Z00.00] Diagnosis: Primary dysmenorrhea[ICD10: N94.4] Joseph RUIZ [employer] CPT-4: 11434 10/09/2019 ([id number]) PREV VISIT EST AGE 18-39 Diagnosis: Encounter for general adult medical examination without abnormal findings[ICD10: Z00.00] Diagnosis: Primary dysmenorrhea[ICD10: N94.4] Joseph RUZI [employer] CPT-4: 79052 10/09/2018 ([id number]) PREV VISIT EST AGE 18-39 Diagnosis: Encounter for general adult medical examination without abnormal findings[ICD10: Z00.00] Diagnosis: Encounter for gynecological examination (general) (routine) without abnormal findings[ICD10: Z01.419] Diagnosis: Primary dysmenorrhea[ICD10: N94.4] Joseph Dunn [employer] CPT-4: 33650 10/17/2017 ([id number]) PREV VISIT EST AGE 18-39 Diagnosis: Encounter for general adult medical examination without abnormal findings[ICD10: Z00.00] Diagnosis: Primary dysmenorrhea[ICD10: N94.4] Diagnosis: Melanocytic nevi of trunk[ICD10: D22.5] Joseph BENJAMIN DO [facility] CPT-4: 70086 10/16/2016 ([id number]) PREV VISIT EST AGE 18-39 Diagnosis: Encounter for general adult medical examination without abnormal findings[ICD10: Z00.00] Diagnosis: Primary dysmenorrhea[ICD10: N94.4] Joseph BENJAMIN DO [facility] CPT-4: 19909 10/14/2015 ([id number]) PREV VISIT EST AGE 18-39 Diagnosis: ROUTINE GYNE EXAM[ICD9: V72.31] Diagnosis: ROUTINE MEDICAL EXAM[ICD9: V70.0] Lynda BENJAMIN DO [employer] CPT-4: 33643 10/26/2014 ([id number]) OFFICE/OUTPATIENT VISIT EST Diagnosis: DYSMENORRHEA[ICD9: 625.3] Joseph BENJAMIN DO [employer] CPT-4: 62173 12/04/2013 ([id number]) PREV VISIT EST AGE 18-39 Diagnosis: ROUTINE MEDICAL EXAM[ICD9: V70.0] Diagnosis: ROUTINE GYNE EXAM[ICD9: V72.31] Diagnosis: Dysmenorrhea[ICD9: 625.3] Joseph BENJAMIN DO [employer] CPT-4: 80610 12/18/2012 ([id number]) SPECIMEN HANDLING OFFICE-LAB Diagnosis: [ICD9: ] Diagnosis: [ICD9: ] Diagnosis: [ICD9: ] Joseph BENJAMIN DO [employer] CPT-4: 63461 12/18/2012 ([id number]) PREV VISIT NEW AGE 18-39 Diagnosis: ROUTINE MEDICAL EXAM[ICD9: V70.0] Diagnosis: Visit for routine bottle tester exam[ICD9: V72.31] Itzel Arana JOSEPH BENJAMIN DO [employer] CPT-4: 40649 01/30/2012 ([id number]) SPECIMEN HANDLING Diagnosis: [ICD9: ] Diagnosis: [ICD9: ] Itzel PALOMOSKY BENJAMIN DO [employer] CPT-4: 47009 01/30/2012 Plan of Care Planned Activity Notes [...] 10/09/2019 Patient Education: Sprintec (28)- OptimizeRX Coupon [id number] [email or web address].Acunote/Remotium/resource s/getResource/61/cf7c [email or web address]-owky-[email or web address].pdf Completed 10/09/2019 Visit Diagnosis Plan: Encounter for general adult medical examination without abnormal findings Discussion: On PNV Mediterranean diet Resume exercise--combo of cardio/weight bearing exercise Recommend updated TdaP ICD-9 : V70.0 ICD-10 : Z00.00 10/09/2018 Appointment: Joseph Benjamin WPtel: [address] Ref# [id number] for annual and will be covered per [employer]. [phone] Annual Well Visit 10/09/2018 Visit Diagnosis Plan: Encounter for gynecological examination (general) (routine) without abnormal findings Discussion: Pap done Add PNV ICD-9 : V72.31 ICD-10 : Z01.419 10/17/2017 Visit Diagnosis Plan: Encounter for general adult medical examination without abnormal findings Discussion: Increase Exercise Discussed compression socks for work since sits ICD-9 : V70.0 ICD-10 : Z00.00 10/17/2017 Appointment: Joseph Benjamin WPtel: [address] [facility] Annual Well Visit 10/17/2017 Patient Education: [...] : Z48.02 05/07/2017 Appointment: Joseph Benjamin WPtel: [address] [place], [place] [phone] Suture Removal 05/07/2017 Patient Education: Patient Medication Summary Completed 05/07/2017 Visit Diagnosis Plan: Melanocytic nevi of trunk Discussion: Excised with 4-0 punch biopsy--sutures x2 then steri strips and opsite Return in 10 days for suture removal ICD-9 : 216.5 ICD-10 : D22.5 04/26/2017 Appointment: Joseph Benjamin WPtel: [address] [place] [address] 8/ lm~sl ACUTE ILLNESS 04/26/2017 Patient Education: Patient Medication Summary Completed 04/26/2017 Visit Diagnosis Plan: Melanocytic nevi of trunk Discussion: Return for removal ICD-9 : 216.5 ICD-10 : D22.5 10/16/2016 Visit Diagnosis Plan: Primary dysmenorrhea Discussion: Continue sprintec ICD-9 : 625.3 ICD-10 : N94.4 10/16/2016 Appointment: Joseph Benjamin WPtel: [address] [place] [address] 10/13 lm`sl 10/16 confirmed `sl Annual Well Visit 10/16/2016 Patient Education: Patient Medication Summary Completed 10/16/2016 Visit Plan: Continue sprintec Will plan on Pap smear next year Gets lab done in March at work 10/14/2015 Appointment: Joseph Benjamin WPtel: [address] [place], [place] [phone] 10/13/15 appt confirmed cn Annual Well Visit 10/14/2015 Patient Education: Patient Medication Summary Completed 10/14/2015 Appointment: Lynda Mahoney WPtel: [address] [place], [place] [phone] Annual Well Visit 10/26/2014 Patient Education: Patient Medication Summary Completed 10/26/2014 Patient Education: ConsumerCare - Antibiotics, Analgesics 18+, Oral Contraceptives F 18+ Completed 10/26/2014 Visit Plan: Continue sprintec 12/04/2013 Appointment: Joseph Benjamin WPtel: [address] [place], [place] [phone] PAP 12/04/2013 Patient Education: Patient Medication Summary Completed 12/04/2013 Visit Plan: Pap done Continue Sprintec 12/18/2012 Appointment: Joseph Benjamin WPtel: [address] [place], [place] [phone] PAP 12/18/2012 Patient Education: Patient Medication Summary Completed 12/18/2012 Appointment: Itzel Arana WPtel: [address] [place], [place] [phone] NEW PATIENT 01/30/2012 Patient Education: Patient Medication Summary Completed 01/30/2012 Instructions Comment . Continue sprintec Will plan on Pap smear next year Gets lab done in March at work . Continue sprintec . Pap done Continue Sprintec Medical Equipment No Medical Equipment data Advance Directives No Advance Directive data
--- OUTSIDE RECORDS SUMMARY | 2023-06-04 10:41 | XMS REPORT | CCD ---
Author Author Danielle Arana APRN Organization JOSEPH Luis DO [facility] Address [address] [place] [address] Phone Care Team Providers Care Manganese Heater Name Role Phone Joseph Benjamin D.O. PP Unavail able CCM Unavailable Summary Purpose Interface Exchange Insurance Providers Payer name Policy type / Coverage type Covered democrat ID Effective Begin Date Effective End Date CIGNA Commercial Insurance [id number] Unk nown Family history Grandmother Diagnosis Age At Onset Uterine Cancer Unknown Mother Diagnosis Age At Onset Diabetes mellitus Type 2 Unknown Hypertension Unknown Social History Social History Element Codes Description Effec tive Dates Marital status Unknown Single 01/30/2012 Employment Unknown Currently employed [address]: 975946726 Has never s moked or chewed tobacco [...] Sprintec (28) 0.25 mg-35 mcg tablet RxNorm: 486893 Take 1 tablet by mouth once daily 1 01/03/20 21 Active Sprintec (28) 0.25 mg-35 mcg tablet RxNorm: 991006 TAKE ONE TABLET BY MOUTH ONCE DAILY 0 10/21/19 20 Inactive Sprintec (28) 0.25 mg-35 mcg tablet RxNorm: 721174 TAKE ONE TABLET BY MOUTH ONCE DAILY 9 10/08/19 20 Inactive Sprintec (28) 0.25 mg-35 mcg tablet RxNorm: 503836 1 Tablet(s) PO QD 8 10/15/19 19 Inactive Sprintec (28) 0.25 mg-35 mcg tablet RxNorm: 077094 1 Tablet(s) PO QD 7 10/16/19 18 Inactive Sprintec (28) 0.25 mg-35 mcg tablet RxNorm: 143212 1 Tablet(s) PO QD 6 10/30/19 17 Inactive Sprintec (28) 0.25 mg-35 mcg tablet RxNorm: 328351 1 Tablet(s) PO QD 5 10/13/19 16 Inactive Sprintec (28) 0.25 mg-35 mcg tablet RxNorm: 513944 1 Tablet(s) PO QD 4 10/25/19 15 Inactive Sprintec (28) 0.25 mg-35 mcg tablet RxNorm: 284433 1 Tablet(s) PO QD 4 12/04/19 14 Inactive Sprintec (28) 0.25 mg-35 mcg tablet RxNorm: 951170 1 Tablet(s) PO QD 3 11/19/19 14 Inactive Sprintec (28) 0.25 mg-35 mcg tablet RxNorm: 188853 1 Tablet(s) PO QD 2 12/18/19 13 Inactive Medication Administered No Medication Administered data Procedures Procedure Codes Date SPECIMEN HANDLING OFFICE-LAB CPT-4: 78032 EXC TR-EXT B9+TRACE 0.5 CM< CPT-4: 34706 04/26 Vital Signs Date Vital Reason For [...] 01/30/2012 Encounters Encounter Performer Location Codes Date (20848) PREV VISIT EST AGE 18-39 Diagnosis: Encounter for general adult medical examination without abnormal findings[ICD10: Z00.00] Diagnosis: Primary dysmenorrhea[ICD10: N94.4] Joseph RUIZ [employer] CPT-4: 42838 10/09/2019 ([id number]) PREV VISIT EST AGE 18-39 Diagnosis: Encounter for general adult medical examination without abnormal findings[ICD10: Z00.00] Diagnosis: Primary dysmenorrhea[ICD10: N94.4] Joseph RUIZ [employer] CPT-4: 03887 10/09/2018 ([id number]) PREV VISIT EST AGE 18-39 Diagnosis: Encounter for general adult medical examination without abnormal findings[ICD10: Z00.00] Diagnosis: Encounter for gynecological examination (general) (routine) without abnormal findings[ICD10: Z01.419] Diagnosis: Primary dysmenorrhea[ICD10: N94.4] Joseph RUIZ [employer] CPT-4: 28271 10/17/2017 ([id number]) PREV VISIT EST AGE 18-39 Diagnosis: Encounter for general adult medical examination without abnormal findings[ICD10: Z00.00] Diagnosis: Primary dysmenorrhea[ICD10: N94.4] Diagnosis: Melanocytic nevi of trunk[ICD10: D22.5] Joseph BENJAMIN DO [employer] CPT-4: 98172 10/16/2016 ([id number]) PREV VISIT EST AGE 18-39 Diagnosis: Encounter for general adult medical examination without abnormal findings[ICD10: Z00.00] Diagnosis: Primary dysmenorrhea[ICD10: N94.4] Joseph BENJAMIN DO [employer] CPT-4: 25198 10/14/2015 ([id number]) PREV VISIT EST AGE 18-39 Diagnosis: ROUTINE GYNE EXAM[ICD9: V72.31] Diagnosis: ROUTINE MEDICAL EXAM[ICD9: V70.0] Lynda Mahoney JOSEPH BENJAMIN DO [employer] CPT-4: 40996 10/26/2014 ([id number]) OFFICE/OUTPATIENT VISIT EST Diagnosis: DYSMENORRHEA[ICD9: 625.3] Joseph BENJAMIN DO [employer] CPT-4: 81155 12/04/2013 ([id number]) PREV VISIT EST AGE 18-39 Diagnosis: ROUTINE MEDICAL EXAM[ICD9: V70.0] Diagnosis: ROUTINE GYNE EXAM[ICD9: V72.31] Diagnosis: Dysmenorrhea[ICD9: 625.3] Joseph BENJAMIN DO [employer] CPT-4: 05000 12/18/2012 ([id number]) SPECIMEN HANDLING OFFICE-LAB Diagnosis: [ICD9: ] Diagnosis: [ICD9: ] Diagnosis: [ICD9: ] Joseph BENJAMIN DO [employer] CPT-4: 09190 12/18/2012 ([id number]) PREV VISIT NEW AGE 18-39 Diagnosis: ROUTINE MEDICAL EXAM[ICD9: V70.0] Diagnosis: Visit for routine side puller exam[ICD9: V72.31] Itzel Arana OJSEPH BENJAMIN DO [employer] CPT-4: 18651 01/30/2012 ([id number]) SPECIMEN HANDLING Diagnosis: [ICD9: ] Diagnosis: [ICD9: ] Itzel Arana JOSEPH BENJAMIN DO [facility] CPT-4: 50953 01/30/2012 Plan of Care Planned Activity Notes [...] : N94.4 10/09/2019 Appointment: Joseph Benjamin WPtel: [address] [place] [address] Annual Well Visit 10/09/2019 Patient Education: Sprintec (28)- [employer] Coupon [id number] https://www.FiveCubits/Qritiqr/resource s/getResource/61/cf7c [email or web address]-[email or web address].pdf Completed 10/09/2019 Visit Diagnosis Plan: Encounter for general adult medical examination without abnormal findings Discussion: On PNV Mediterranean diet Resume exercise--combo of cardio/weight bearing exercise Recommend updated TdaP ICD-9 : V70.0 ICD-10 : Z00.00 10/09/2018 Appointment: Joseph Benjamin WPtel: [address] [place], [place] [phone] Ref# [phone] for annual and [facility] [phone] Annual Well Visit 10/09/2018 Visit Diagnosis Plan: Encounter for general adult medical examination without abnormal findings Discussion: Increase Exercise Discussed compression socks for work since sits ICD-9 : V70.0 ICD-10 : Z00.00 10/17/2017 Visit Diagnosis Plan: Encounter for gynecological examination (general) (routine) without abnormal findings Discussion: Pap done Add PNV ICD-9 : V72.31 ICD-10 : Z01.419 10/17/2017 Appointment: Joseph Benjamin WPtel: [address] [place], [place] [phone] Annual Well Visit 10/17/2017 Patient Education: Patient [...] : Z48.02 05/07/2017 Appointment: Joseph Benjamin WPtel: [address] [place], [place] [phone] Suture Removal 05/07/2017 Patient Education: Patient Medication Summary Completed 05/07/2017 Visit Diagnosis Plan: Melanocytic nevi of trunk Discussion: Excised with 4-0 punch biopsy--sutures x2 then steri strips and opsite Return in 10 days for suture removal ICD-9 : 216.5 ICD-10 : D22.5 04/26/2017 Appointment: Joseph Benjamin WPtel: [address] [place], [place] [id number] 04/25 lm~sl ACUTE ILLNESS 04/26/2017 Patient Education: Patient Medication Summary Completed 04/26/2017 Visit Diagnosis Plan: Primary dysmenorrhea Discussion: Continue sprintec ICD-9 : 625.3 ICD-10 : N94.4 10/16/2016 Visit Diagnosis Plan: Melanocytic nevi of trunk Discussion: Return for removal ICD-9 : 216.5 ICD-10 : D22.5 10/16/2016 Appointment: Joseph Benjamin WPtel: [address] [place], [place] [phone] 10/13 lm`sl 10/16 confirmed `sl Annual Well Visit 10/16/2016 Patient Education: Patient Medication Summary Completed 10/16/2016 Visit Plan: Continue sprintec Will plan on Pap smear next year Gets lab done in March at work 10/14/2015 Appointment: Joseph Benjamin WPtel: [address] [place], [place] [phone] 10/13/15 appt confirmed cn Annual Well Visit 10/14/2015 Patient Education: Patient Medication Summary Completed 10/14/2015 Appointment: Lynda Mahoney WPtel: [address] [place], [place] [phone] Annual Well Visit 10/26/2014 Patient Education: Patient Medication Summary Completed 10/26/2014 Patient Education: ConsumerCare - Antibiotics, Analgesics 18+, Oral Contraceptives F 18+ Completed 10/26/2014 Visit Plan: Continue sprintec 12/04/2013 Appointment: Joseph Benjamin WPtel: [address] [place], [place] [phone] PAP 12/04/2013 Patient Education: Patient Medication Summary Completed 12/04/2013 Visit Plan: Pap done Continue Sprintec 12/18/2012 Appointment: Joseph Benjamin WPtel: [address] [place], [place] [phone] PAP 12/18/2012 Patient Education: Patient Medication Summary Completed 12/18/2012 Appointment: Itzel Arana WPtel: [address] [place], [place] [phone] NEW PATIENT 01/30/2012 Patient Education: Patient Medication Summary Completed 01/30/2012 Instructions Comment . Continue sprintec Will plan on Pap smear next year Gets lab done in March at work . Continue sprintec . Pap done Continue Sprintec Medical Equipment No Medical Equipment data Advance Directives No Advance Directive data
[2023-06-04] MEDS ORDERED: ceFAZolin INJECTION 2,000 MG in NS (IVPB) 50 ML 50 ML IV ONE (11:00)
[2023-06-04] MEDS ORDERED: LACTATED RINGERS 1,000 ML 1,000 ML IV SCH (11:28)
[2023-06-04 11:46] LABS: BASOPHILS % (AUTO) 0 % (0-10); EOSINOPHILS % (AUTO) 0 % (0-10); HEMATOCRIT 41 % (35-52); HEMOGLOBIN 14.5 g/dL (11.5-16.0); LYMPHOCYTES # (AUTO) 1.9 10^3/uL (1.0-4.0); LYMPHOCYTES % (AUTO) 20 % (12-44); MEAN CORPUSCULAR HEMOGLOBIN 32 pg (25-34); MEAN CORPUSCULAR HGB CONC 35 g/dL (32-36); MEAN CORPUSCULAR VOLUME 91 fL (80-99); MEAN PLATELET VOLUME 10.9 fL (9.0-12.2); MONOCYTES # (AUTO) 0.8 10^3/uL (0.0-1.0); MONOCYTES % (AUTO) 9 % (0-12); NEUTROPHILS # (AUTO) 6.7 10^3/uL (1.8-7.8); NEUTROPHILS % (AUTO) 71 % (42-75); PLATELET COUNT 239 10^3/uL (130-400); WHITE BLOOD COUNT 9.5 10^3/uL (4.3-11.0)
[2023-06-04] MEDS ORDERED: CITRIC ACID/SODIUM CITRATE ORAL SOLN 30 ML ONE (11:46)
[2023-06-04] MEDS ORDERED: ceFAZolin INJECTION 0 MG ONE (11:46)
[2023-06-04] MEDS ORDERED: METOCLOPRAMIDE INJ 10 MG/2 ML ONE (11:47)
[2023-06-04] MEDS ORDERED: FAMOTIDINE INJ 20MG/2ML VIAL ONE (11:47)
[2023-06-04] MEDS ORDERED: OXYTOCIN DRIP PRE-MIX 1,000 ML IV ONE (11:55)
[2023-06-04] MEDS ORDERED: fentaNYL INJECTION 100 MCG/2 ML VIAL ONE (12:00)
[2023-06-04] MEDS ORDERED: ROPIVACAINE 5 MG/ML 30ML VIAL ONE (12:04)
--- NOTE | 2023-06-04 12:13 | History & Physical-OB ---
OB - Chief Complaint & HPI Date/Time Date of Admission: Date of Admission: Jun 04, 2023 at 10:35 Date seen by a Provider: Jun 04, 2023 Time Seen by a Provider: 12:05 Chief Complaint/History OB-Reason for Admission/Chief: Section Hx : 1 Hx Para: 0 Expected Date of Delivery: Jun 24, 2033 Gestational Age in Weeks: 37 Gestational Age in Days: 1 Indication for : malpresentation Other reason for admission: Diamniotic dichorionic twin gestation, with Mild preE and malpresentation of twin b. Admission Nurse Assessment Rev: Yes Allergies and Home Medications Allergies Coded Allergies: No Known Drug Allergies (Unverified , 05/28/23) Patient Home Medication List Home Medication List Reviewed: Yes Ferrous Sulfate (Iron) 325 Mg (65 Mg Iron) Tablet, 325 MG PO DAILY, (Reported) Entered as Reported by: Doris Ramirez on 05/28/23 1004 Pnv 119/Iron Fum/Folic Acid ( 19 Tablet) 29 Mg Iron-1 Mg Tablet, 1 EACH PO DAILY, (Reported) Entered as Reported by: Doris Ramirez on 05/28/23 1004 OB - History Hx of Present Care: Yes Ultrasounds: Abnormal US findings (Di DI twins) Obstetrical Complications: Pre-eclampsia Medical Complications: None Delivery History Adverse Rxn to Tranfusion: No Patient Past Medical History nc Immunizations Hepatitis A: Yes Hepatitis B: Yes OB - Admission Exam Physical Exam HEENT: NCAT Heart: Rhythm Normal Lungs: Clear Abdomen: Gravid Extremities: Normal Reflexes: Normal Heart Rate: 140's Accelerations: Accelerations Present Decelerations: No Decelerations Short Term Variability: Present Detention Variability: Average (6-25) Contractions on Admission: >10 Minutes Apart Intensity: Mild Labs Laboratory Tests Test 06/04/23 11:28 Range/Units White Blood Count 9.5 4.3-11.0 10^3/uL Red Blood Count 4.53 3.80-5.11 10^6/uL Hemoglobin 14.5 11.5-16.0 g/dL Hematocrit 41 35-52 % Mean Corpuscular Volume 91 80-99 fL Mean Corpuscular Hemoglobin 32 25-34 pg Mean Corpuscular Hemoglobin Concent 35 32-36 g/dL Red Cell Distribution Width 13.6 10.0-14.5 % Platelet Count 239 130-400 10^3/uL Mean Platelet Volume 10.9 9.0-12.2 fL Immature Granulocyte % (Auto) 1 % Neutrophils (%) (Auto) 71 42-75 % Lymphocytes (%) (Auto) 20 12-44 % Monocytes (%) (Auto) 9 0-12 % Eosinophils (%) (Auto) 0 0-10 % Basophils (%) (Auto) 0 0-10 % Neutrophils # (Auto) 6.7 1.8-7.8 10^3/uL Lymphocytes # (Auto) 1.9 1.0-4.0 10^3/uL Monocytes # (Auto) 0.8 0.0-1.0 10^3/uL Eosinophils # (Auto) 0.0 0.0-0.3 10^3/uL Basophils # (Auto) 0.0 0.0-0.1 10^3/uL Immature Granulocyte # (Auto) 0.1 0.0-0.1 10^3/uL OB - Assessment/Plan/Diagnosis Assessment Assessment: section Admission Dx 38 yo @ 37.1 Di/Di Twins Mild Pre E Malpresentation of twin B GBS neg Admission Status: Inpatient Order (span 2 midnights) Reason for Inpatient Admission: PLTCS Plan Plan: Section MARIA ESTHER NOLASCO DO Jun 04, 2023 12:13
[2023-06-04] MEDS ORDERED: Tetanus/Diphtheria/Pertussis (Acell) ADULT Vaccine 0.5 ML IM SCH (12:15)
[2023-06-04] MEDS ORDERED: ONDANSETRON INJECTION 4 MG/2 ML (SDV) IVP PRN (12:15)
[2023-06-04] MEDS ORDERED: MEASLES, MUMPS, RUBELLA VACCINE (MMR) SC SCH (12:15)
[2023-06-04] MEDS ORDERED: HYDROcodone/ACETAMINOPHEN 5 MG/325 MG TABLET PO PRN (12:15)
[2023-06-04] MEDS ORDERED: NALOXONE 0.4 MG/ML 1 ML VIAL IV PRN (12:15)
[2023-06-04] MEDS ORDERED: CARBOPROST 250 MCG/ML 1 ML AMPULE IM ONE (12:41)
[2023-06-04] MEDS ORDERED: KETOROLAC INJ 30 MG/ML VIAL ONE (12:53)
[2023-06-04] MEDS ORDERED: DOCU100C37 PO (13:19)
[2023-06-04] MEDS ORDERED: ACHD5005 PO (13:19)
[2023-06-04] MEDS ORDERED: IBUP-844 PO (13:19)
--- NOTE | 2023-06-04 13:19 | Discharge Inst-Women's Service ---
Discharge Inst-Women's Serv Depart Medication/Instructions New, Converted or Re-Newed RX: Transmitted to Pharmacy Final Diagnosis POD 2 PLTCS Problems Reviewed?: Yes Consults/Follow Up Additional Follow Up: Yes Orders/Referrals Dr. Harmon in 7-10 days and in 6 weeks Activity Activity: Activity as Tolerated Driving Instructions: No Driving for 1 Week NO SMOKING: NO SMOKING Nothing Inside Vagina: No Douching, No [place], No Tampons Diet Discharge Diet: No Restrictions Symptoms to Report to : Bleeding Excessive, Pain Increased, Fever Over 101 Degrees F, Vaginal Bleeding Increase, Questions/Concerns For Any Problems or Questions: Contact Your Physician Skin/Wound Care Infection Signs and Symptoms: Increased Redness, Foul Odor of Wound, Increased Drainage, Skin Itchy or Has a Rash, Increased Swelling, Temperature Above 101 F Operative Area Clean and Dry: Do Not Remove Bandage, You May Remove Bandage Stitches/Chris/Dermabond: Care of MARIA ESTHER German DO Jun 04, 2023 13:19
[2023-06-04] MEDS ORDERED: LABE200T10 PO (13:22)
[2023-06-04] MEDS ORDERED: LABETALOL 5 mg/ml 4 ML SINGLE DOSE SYRINGE ONE (13:51)
[2023-06-04] MEDS ORDERED: LABETALOL 5 mg/ml 4 ML SINGLE DOSE SYRINGE IV ONE (14:00)
[2023-06-04] MEDS: OXYTOCIN DRIP PRE-MIX 500 ML IV SCH (14:40)
[2023-06-04] MEDS ORDERED: LABETALOL 200 MG TABLET PO ONE (17:15)
[2023-06-04] MEDS ORDERED: hydrALAZINE INJECTION 20 MG/ML VIAL IV ONE (20:00)
[2023-06-04] MEDS ORDERED: hydrALAZINE INJECTION 20 MG/ML VIAL ONE (20:06)
[2023-06-04] MEDS: KETOROLAC INJ 30 MG/ML VIAL IV SCH ×2 (20:09→20:10)
[2023-06-04] MEDS: CATHETER FLUSH 10 ML SYR IV SCH (20:09)
[2023-06-04] MEDS ORDERED: LABETALOL 200 MG TABLET PO SCH (21:00)
[2023-06-04] MEDS: DOCUSATE SODIUM 100 MG CAPSULE PO SCH (21:12)
[2023-06-05] VITALS (14 sets, daily range): BP systolic 129–175; BP diastolic 63–102
--- NOTE | 2023-06-05 00:32 | OPERATIVE REPORT ---
PREOPERATIVE DIAGNOSES: 1. A 38-year-old G1, P0 at 37 weeks and 1 day gestation. 2. Diamniotic dichorionic twin . 3. Mild preeclampsia. 4. malpresentation. POSTOPERATIVE DIAGNOSES: 1. A 38-year-old G1, P0 at 37 weeks and 1 day gestation. 2. Diamniotic dichorionic twin . 3. Mild preeclampsia. 4. malpresentation. PROCEDURE: Primary low transverse section. SURGEON: Renny Nolasco DO. CONE CHOCOLATE DIPPER: Dr. Debby Sanz who was necessary for manipulation and retraction throughout the procedure. ANESTHESIA: Spinal. ESTIMATED BLOOD LOSS: 600 mL. URINE OUTPUT: 50 mL clear at the end of the procedure. FLUIDS: 1000 mL lactated Ringer's solution. FINDINGS: Two live fetuses, baby A female, weighing 4 pounds 10 ounces, Apgars of 7 and 9. Baby B, male, weighing 6 pounds 2 ounces, Apgars of 7 and 9. Grossly normal appearing uterus, bilateral fallopian tubes and ovaries. SPECIMEN SENT: Placenta of both infants. Placenta of A was marked with 1 cord clamp. Placenta of B was marked with 2 cord clamps. INDICATIONS FOR PROCEDURE: This 38-year-old female patient who had sought care in my office, it was complicated by di-di twin as well as mild preeclampsia, which developed around 35 weeks. Discussed with the patient delivery vaginally; however, due to malpresentation, we discussed delivery, which the patient was agreeable to. Risk of the procedure were discussed with the patient in detail including risk of bleeding, infection, damage to surrounding structures including but not limited to bowel, bladder, ureter, kidneys, possible need for reoperation, postoperative complications that may occur, recovery timeframe, risk from anesthesia and even . After everything was discussed with the patient in detail, a consent was obtained, the patient was taken to the operating room. OPERATIVE DESCRIPTION IN DETAIL Once in the operating room, spinal analgesia was found to be adequate. She was placed in the supine position with leftward tilt, prepped and draped in normal sterile fashion. A timeout was performed. Anesthesia was tested. I then made a Pfannenstiel skin incision with a knife and carried down to the underlying fascia using Bovie cautery. The fascial incision extended laterally using Bovie cautery. The superior aspect of the fascial incision was then grasped with Geoff clamps, tented upwards and dissected off the underlying rectus muscles. The inferior aspect of the fascial incision was then grasped with Geoff clamps, tented upwards and dissected off the underlying rectus muscles. The rectus muscles were dissected down the midline using sharp dissection, which exposed the peritoneum, which I entered bluntly, extended using blunt traction. An Alfredo ring retractor was placed in the peritoneal incision, which offers excellent lateral sidewall retraction. I identified lower uterine segment that was found to be thinned out. I made a low transverse incision to the vesicouterine peritoneum and bluntly dissected off the lower uterine segment, creating a bladder flap. I then proceeded my myotomy until membranes were visualized, at which point I extended the uterine incision laterally and superiorly using bandage scissors. Amniotomy was then performed using Allis clamp. Fetus A was found in the vertex presentation with gentle fundal pressure, the head elevated up to the incision where the nares and oropharynx were bulb suctioned. Nuchal cord was reduced x1. Anterior and posterior shoulders were delivered and infant was then brought to the operative field where the cord was doubly clamped and cut and was handed off to waiting nurses in attendance. Cord clamped with one cord clamp to javon it as A. In a similar fashion, a second membranes were broken using an Allis clamp. Clear fluid was noted. The infant was found in the complete breech presentation. The infant was delivered via buttocks all the way up to the upper torso where the arms were then delivered by sweeping them across the chest and the was then placed downward where it was elevated up and the head was delivered by flexion through the incision. The nares and oropharynx were bulb suctioned and was brought to the operative field where the cord was doubly clamped and cut and was handed off to waiting nurses in attendance. This cord was marked with 2 cord clamps. Cord blood was collected from each cord. Intact placenta was delivered using manual extraction. The uterus was exteriorized and cleared of endometrial clots and debris. I then proceeded with closing the uterine incision using 0 Vicryl suture in a running locked fashion. There was some bogginess persistent with the uterus; therefore, 250 mcg of Hemabate are given IM to help with uterine atony. There is also 30 units of Pitocin given wide open after delivery of the placenta, which does help somewhat. After the Hemabate, the uterus was noted to be firm. A second layer of imbricating 0 Monocryl was placed on the uterine incision. Excellent hemostasis was noted after doing this and uterine tone was much improved. I then placed the uterus back in the pelvis and copiously irrigated the pelvis using normal saline. Once again, there was no active bleeding noted from any of my dissection planes. I placed Interceed antiadhesive over my low transverse incision. I removed the Alfredo ring retractor and then proceeded with closing the peritoneum using 3-0 Vicryl suture in a running fashion. Rectus muscles were reapproximated using 3-0 Vicryl suture in interrupted fashion. Fascia was reapproximated using 0 Vicryl suture in a running fashion. Subcutaneous tissue was reapproximated using 3-0 plain interrupted subcutaneous stitch and skin reapproximated using 4-0 Monocryl in subcuticular. Dermabond was applied to incision, sterile dressing with adhesive white tape. The patient tolerated the procedure well and was taken to recovery in stable condition. Lap and sponge counts were correct at the end of the procedure. Instrument counts correct as well. Two grams of Ancef were given preoperatively for infection prophylaxis. Job ID: [id number] DocumentID: [id number] Dictated Date: 06/04/2023 13:47:08 Assistant Finance Manager Date: 06/05/2023 00:29:00 Dictated By: RENNY NOLASCO DO
[2023-06-05] MEDS: KETOROLAC INJ 30 MG/ML VIAL IV SCH ×2 (02:06→08:55)
[2023-06-05] MEDS: CATHETER FLUSH 10 ML SYR IV SCH (02:06)
[2023-06-05] MEDS ORDERED: hydrALAZINE INJECTION 20 MG/ML VIAL ONE (02:27)
[2023-06-05] MEDS ORDERED: hydrALAZINE INJECTION 20 MG/ML VIAL IV ONE (02:30)
[2023-06-05] MEDS: OXYTOCIN DRIP PRE-MIX 500 ML IV SCH (03:33)
[2023-06-05 05:39] LABS: BASOPHILS # (AUTO) 0.1 10^3/uL (0.0-0.1); BASOPHILS % (AUTO) 0 % (0-10); EOSINOPHILS % (AUTO) 0 % (0-10); HEMATOCRIT 35 % (35-52); HEMOGLOBIN 11.9 g/dL (11.5-16.0); LYMPHOCYTES # (AUTO) 1.7 10^3/uL (1.0-4.0); LYMPHOCYTES % (AUTO) 12 % (12-44); MEAN CORPUSCULAR HEMOGLOBIN 32 pg (25-34); MEAN CORPUSCULAR HGB CONC 34 g/dL (32-36); MEAN CORPUSCULAR VOLUME 92 fL (80-99); MEAN PLATELET VOLUME 10.9 fL (9.0-12.2); MONOCYTES # (AUTO) 1.2 10^3/uL (0.0-1.0); MONOCYTES % (AUTO) 8 % (0-12); NEUTROPHILS # (AUTO) 11.4 10^3/uL (1.8-7.8); NEUTROPHILS % (AUTO) 79 % (42-75); PLATELET COUNT 218 10^3/uL (130-400); WHITE BLOOD COUNT 14.4 10^3/uL (4.3-11.0)
--- NOTE | 2023-06-05 08:49 | Postpartum Progress Note ---
Note Note Day # 1 Subjective: Patient is without complaints. Ambulating, voiding. Tolerating a regular diet without nausea or vomiting. Normal lochia. Pain is well controlled with oral pain medications. Objective: Physical Exam: General - Alert and oriented, no apparent distress Abdomen - Soft, appropriately tender to palpation, non-distended, fundus firm at umbilicus Extremities - no edema, negative Blaine's bilaterally Incision- c/d/i Assessment: POD 1 PLTCS Twin Acute blood loss anemia PP PreE- BP continues to be labile, may consider MgSO4 if no improvement. Plan: Routine care. Encourage breast feeding. Encourage ambulation. Ferrous sulfate supplementation. Plan for discharge tomorrow or pending BP control Vitals - Labs Vital Signs - I&O Vital Signs Date Time Temp Pulse Resp B/P (MAP) Pulse Ox O2 Delivery O2 Flow Rate FiO2 06/05/23 08:00 36.9 119 21 175/102 (126) 96 Room Air 06/05/23 05:53 37.0 101 20 153/90 (111) 97 Room Air 06/05/23 03:15 37.2 103 20 129/70 (89) 97 Room Air 06/05/23 02:16 37.1 92 18 163/77 (105) 97 06/05/23 00:09 36.4 97 18 146/80 (102) 97 Room Air 06/04/23 19:45 36.0 84 18 165/91 (115) 98 Room Air 06/04/23 18:20 37.4 91 18 167/84 (111) 97 Room Air 06/04/23 17:05 37.1 88 18 184/85 (118) 96 Room Air 06/04/23 14:25 36.9 90 18 162/79 (106) 98 Room Air 06/04/23 14:00 Room Air 06/04/23 14:00 36.6 20 134/99 (111) 97 Room Air 06/04/23 13:50 Room Air 06/04/23 13:50 16 152/62 (92) 99 Room Air 06/04/23 13:40 16 175/107 (129) 98 Room Air 06/04/23 13:35 Room Air 06/04/23 13:30 16 170/98 (122) 97 Room Air 06/04/23 13:20 Room Air 06/04/23 13:20 16 166/102 (123) 100 Room Air 06/04/23 13:10 16 124/108 (113) 99 Room Air 06/04/23 13:06 36.3 16 140/82 (101) 98 Room Air 06/04/23 13:06 Room Air 06/04/23 11:12 37.4 83 18 161/84 (109) 98 Room Air 06/04/23 10:56 37.7 83 18 180/98 (125) 99 Room Air 06/04/23 10:56 37.7 83 18 99 Room Air I & O 06/05/23 07:00 Intake Total 950 ml Output Total 1000 ml Balance -50 ml Labs Laboratory Tests 06/04/23 11:28: White Blood Count 9.5, Red Blood Count 4.53, Hemoglobin 14.5, Hematocrit 41, Mean Corpuscular Volume 91, Mean Corpuscular Hemoglobin 32, Mean Corpuscular Hemoglobin Concent 35, Red Cell Distribution Width 13.6, Platelet Count 239, Mean Platelet Volume 10.9, Immature Granulocyte % (Auto) 1, Neutrophils (%) (Auto) 71, Lymphocytes (%) (Auto) 20, Monocytes (%) (Auto) 9, Eosinophils (%) (Auto) 0, Basophils (%) (Auto) 0, Neutrophils # (Auto) 6.7, Lymphocytes # (Auto) 1.9, Monocytes # (Auto) 0.8, Eosinophils # (Auto) 0.0, Basophils # (Auto) 0.0, Immature Granulocyte # (Auto) 0.1 06/05/23 05:30: White Blood Count 14.4H, Red Blood Count 3.77L, Hemoglobin 11.9, Hematocrit 35, Mean Corpuscular Volume 92, Mean Corpuscular Hemoglobin 32, Mean Corpuscular Hemoglobin Concent 34, Red Cell Distribution Width 13.9, Platelet Count 218, Mean Platelet Volume 10.9, Immature Granulocyte % (Auto) 1, Neutrophils (%) (Auto) 79H, Lymphocytes (%) (Auto) 12, Monocytes (%) (Auto) 8, Eosinophils (%) (Auto) 0, Basophils (%) (Auto) 0, Neutrophils # (Auto) 11.4H, Lymphocytes # ( Auto) 1.7, Monocytes # (Auto) 1.2H, Eosinophils # (Auto) 0.0, Basophils # (Auto) 0.1, Immature Granulocyte # (Auto) 0.1 Microbiology 06/04/23 MRSA Screen - Final, Complete MRSA not isolated MARIA ESTEHR NOLASCO DO Jun 05, 2023 08:49
[2023-06-05] MEDS: DOCUSATE SODIUM 100 MG CAPSULE PO SCH ×2 (08:55→20:33)
[2023-06-05] MEDS: LABETALOL 200 MG TABLET PO SCH ×3 (08:55→20:34)
[2023-06-05] MEDS: LABETALOL 5 mg/ml 4 ML SINGLE DOSE SYRINGE IV PRN (10:05)
--- NOTE | 2023-06-05 10:59 | Anesthesia-Regional Post-Op ---
Regional Patient Condition Mental Status: Alert, Oriented x3 Circulation: Same as Pre-Op Headache: Absent Sensation: Full Recovery Motor Block: Absent Post Op Complications Complications None Follow Up Care/Instructions Patient Instructions None needed. Anesthesia/Patient Condition Patient is doing well, no complaints, stable vital signs, no apparent adverse anesthesia problems. No complications reported per nursing. MAGDALENA BABCOCK CRNA Jun 05, 2023 10:59
[2023-06-05] MEDS: IBUPROFEN 600 MG TABLET PO SCH ×2 (16:31→21:53)
[2023-06-05] MEDS ORDERED: MAGNESIUM 4 GM/100 ML IVPB 100 ML IV SCH (20:45)
[2023-06-05] MEDS ORDERED: CALCIUM GLUCONATE 10% 4.65 MEQ/10 ML VIAL IV SCH (20:45)
[2023-06-05] MEDS: D5 LR 1,000 ML IV SOLN 1,000 ML IV SCH (21:42)
[2023-06-05] MEDS: MAGNESIUM SULFATE DRIP 500 ML IV SCH (22:13)
[2023-06-06] VITALS (16 sets, daily range): BP systolic 119–184; BP diastolic 74–106
[2023-06-06] MEDS: IBUPROFEN 600 MG TABLET PO SCH ×2 (04:20→10:08)
[2023-06-06] MEDS: LABETALOL 5 mg/ml 4 ML SINGLE DOSE SYRINGE IV PRN (05:45)
[2023-06-06] MEDS: MAGNESIUM SULFATE DRIP 500 ML IV SCH (08:09)
--- NOTE | 2023-06-06 08:11 | Postpartum Progress Note ---
Note Note Day # 2 Subjective: Patient is without complaints. Ambulating, voiding. Tolerating a regular diet without nausea or vomiting. Normal lochia. Pain is well controlled with oral pain medications. MgSO4 infusion ran overnight with someone stable bp noted. Objective: Physical Exam: General - Alert and oriented, no apparent distress Abdomen - Soft, appropriately tender to palpation, non-distended, fundus firm at umbilicus Extremities - no edema, negative Blaine's bilaterally Incision- c/d/i Assessment: POD 2 PLTCS Mild PreE-bp control labile Plan: Routine care. Encourage breast feeding. Encourage ambulation. Ferrous sulfate supplementation. Will dc mgso4 this am. Continue Labetalol Plan for discharge later today or tomorrow pending BP control. Vitals - Labs Vital Signs - I&O Vital Signs Date Time Temp Pulse Resp B/P (MAP) Pulse Ox O2 Delivery O2 Flow Rate FiO2 06/06/23 07:25 90 20 153/82 (105) 06/06/23 06:36 89 20 168/81 (110) 06/06/23 05:33 93 20 176/90 (118) 06/06/23 04:24 89 20 156/87 (110) 06/06/23 03:37 86 18 150/80 (103) 06/06/23 02:35 88 18 129/77 (94) 06/06/23 01:33 87 16 119/74 (89) 06/06/23 00:34 90 17 128/74 (92) 06/05/23 23:30 96 17 133/75 (94) 06/05/23 23:00 97 20 143/63 (89) 06/05/23 22:32 102 18 132/75 (94) 06/05/23 22:16 36.8 97 18 129/81 (97) 97 Room Air 06/05/23 22:02 36.8 98 18 135/75 (95) 99 Room Air 06/05/23 21:47 37.1 101 18 145/79 (101) 100 Room Air 06/05/23 20:22 37.2 112 20 163/92 (115) 94 Room Air 06/05/23 15:33 138/86 (103) 06/05/23 11:49 166/94 (118) 06/05/23 08:55 36.8 I & O 06/06/23 07:00 Intake Total 1745 ml Output Total 4290 ml Balance -2545 ml Labs Microbiology 06/04/23 MRSA Screen - Final, Complete MRSA not isolated MARIA ESTHER NOLASCO DO Jun 06, 2023 08:11
[2023-06-06] MEDS: DOCUSATE SODIUM 100 MG CAPSULE PO SCH ×2 (10:08→21:38)
[2023-06-06] MEDS: LABETALOL 200 MG TABLET PO SCH ×2 (13:15→21:38)
[2023-06-06] MEDS ORDERED: amLODIPine 5 MG TABLET PO SCH (13:30)
[2023-06-06] MEDS: CATHETER FLUSH 10 ML SYR IV SCH (14:00)
[2023-06-07] VITALS (12 sets, daily range): BP systolic 150–181; BP diastolic 79–104
[2023-06-07] MEDS: CATHETER FLUSH 10 ML SYR IV SCH ×6 (06:00→21:30)
[2023-06-07] MEDS: IBUPROFEN 600 MG TABLET PO SCH ×6 (06:30→19:55)
[2023-06-07] MEDS: LABETALOL 5 mg/ml 4 ML SINGLE DOSE SYRINGE IV PRN (07:32)
--- NOTE | 2023-06-07 08:15 | Postpartum Progress Note ---
Note Note Day # Subjective: Patient is without complaints. Ambulating, voiding. Tolerating a regular diet without nausea or vomiting. Normal lochia. Pain is well controlled with oral pain medications. Feels as though her anxiety is driving her BP higher and would like to go home. She denies MEDINA,CP, SOB. Objective: Physical Exam: General - Alert and oriented, no apparent distress Abdomen - Soft, appropriately tender to palpation, non-distended, fundus firm at umbilicus Extremities - no edema, negative Blaine's bilaterally Incision- c/d/i Assessment: POD 3 PLTCS Pre E - Labile BP control, increasing Norvasc to 10 mg today may consider cardiology consult if further help needed Acute blood loss anemia AMA Plan: Routine care. Encourage breast feeding. Encourage ambulation. Ferrous sulfate supplementation. Plan for discharge today or tomorrow pending BP control Vitals - Labs Vital Signs - I&O Vital Signs Date Time Temp Pulse Resp B/P (MAP) Pulse Ox O2 Delivery O2 Flow Rate FiO2 06/07/23 07:19 173/100 (124) 06/07/23 06:10 36.1 74 18 166/100 (122) 98 Room Air 06/07/23 03:10 164/95 (118) 06/07/23 01:37 166/104 (124) 06/06/23 21:39 36.6 85 20 159/99 (119) 96 Room Air 06/06/23 16:41 36.7 90 18 170/90 (116) Room Air 06/06/23 16:38 36.7 90 18 169/106 (127) Room Air 06/06/23 14:17 88 18 166/86 (112) Room Air 06/06/23 13:15 36.8 99 18 184/98 (126) 97 Room Air 06/06/23 10:30 36.8 92 18 149/81 (103) 97 Room Air 06/06/23 09:30 94 20 164/89 (114) 06/06/23 09:30 36.8 94 18 164/89 (114) 97 Room Air 06/06/23 08:29 90 20 175/92 (119) 06/06/23 08:29 36.8 90 18 175/92 (119) 97 Room Air I & O 06/07/23 07:00 Intake Total 675 ml Output Total 4100 ml Balance -3425 ml Labs Microbiology 06/04/23 MRSA Screen - Final, Complete MRSA not isolated MARIA ESTHER NOLASCO DO Jun 07, 2023 08:15
[2023-06-07] MEDS: SERTRALINE 50 MG TABLET PO SCH (09:02)
[2023-06-07] MEDS: DOCUSATE SODIUM 100 MG CAPSULE PO SCH ×2 (09:02→21:30)
[2023-06-07] MEDS: LABETALOL 200 MG TABLET PO SCH (09:02)
[2023-06-07] MEDS: amLODIPine 10 MG TABLET PO SCH (09:54)
[2023-06-07] MEDS: D5 LR 1,000 ML IV SOLN 1,000 ML IV SCH ×3 (12:36→12:41)
[2023-06-07] MEDS ORDERED: LABETALOL 200 MG TABLET PO SCH (13:00)
[2023-06-07 13:49] LABS: POTASSIUM 4.1 MMOL/L (3.6-5.0)
[2023-06-07 13:50] LABS: CALCIUM 8.4 MG/DL (8.5-10.1)
[2023-06-07 13:51] LABS: TOTAL PROTEIN 5.7 GM/DL (6.4-8.2)
[2023-06-07 13:53] LABS: BILIRUBIN,TOTAL 0.8 MG/DL (0.1-1.0)
[2023-06-07 13:55] LABS: CREATININE SERUM 0.63 MG/DL (0.60-1.30)
--- NOTE | 2023-06-07 14:04 | Consultation-Cardiology ---
HPI-Cardiology Cardiology Consultation: Date of Consultation 06/07/23 Time Seen by a Provider: 13:30 Date of Admission 06-04-23 Attending Physician Jacinta Benjamin DO Admitting Physician Admitting Physician: Renny Harmon DO Attending Physician: Renny Harmon DO Consulting Physician Carol Payan MD HPI: Chief Complaint: Uncontrolled HTN Ms. Kraft is a 38 yr old female who we are seeing in room 313 post scheduled c- section delivery of 37 week twins. She reports she had no difficulties with her until the last few weeks when she became increasingly hypertensive. She reports mod bilat LE swelling. No c/o CP, SOB, palpitations, syncope, near syncope. No c/o MEDINA, n/v/d. Review of Systems-Cardiology Review of Systems Constitutional: No chills, No fever, No malaise Eyes: No vision change Ears/Nose/Throat: No epistaxis, No recent hearing loss Respiratory: As described under HPI Cardiovascular: As described under HPI Gastrointestinal: no symptoms reported Genitourinary: No dysuria, No hematuria Expected Date of Delivery: [birth year], 2033 Musculoskeletal: no symptoms reported Skin: No rash on exposed areas, No ulcerations on exposed areas Psychiatric/Neurological: No seizure, No focal weakness, No syncope Hematologic: No bleeding abnormalities [id number] Hx Patient Social History Smoking Status: Never a Smoker Alcohol Use?: No Pt feels they are or have been: No Past Medical History PMH As described under Assessment. Family Medical History Family Medical History: She denies any family CAD, CVA, HTN or pre-mature SCD. She reports her parents do have DM. Allergies and Home Medications Allergies Coded Allergies: No Known Drug Allergies (Unverified , 05/28/23) Patient Home Medication List Docusate Sodium (Docusate Sodium) 100 Mg Capsule, 100 MG PO BID PRN for CONSTIPATION-1ST LINE Prescribed by: RENNY HARMON on 06/04/23 1319 Ferrous Sulfate (Iron) 325 Mg (65 Mg Iron) Tablet, 325 MG PO DAILY, (Reported) Entered as Reported by: Doris Ramirez on 05/28/23 1004 Hydrocodone/Acetaminophen (Hydrocodone-Acetamin 5-325 mg) 5 Mg-325 Mg Tablet, 1- 2 EA PO Q6HR PRN for PAIN-MODERATE (5-7) Prescribed by: RENNY HARMON on 06/04/23 1320 Ibuprofen (Ibu) 600 Mg Tablet, 600 MG PO Q6H Prescribed by: RENNY HARMON on 06/04/23 1319 Labetalol HCl (Labetalol HCl) 200 Mg Tablet, 200 MG PO BID Prescribed by: RENNY HARMON on 06/04/23 1322 Pnv 119/Iron Fum/Folic Acid ( 19 Tablet) 29 Mg Iron-1 Mg Tablet, 1 EACH PO DAILY, (Reported) Entered as Reported by: Doris Ramirez on 05/28/23 1004 Physical Exam-Cardiology Physical Exam Vital Signs/I&O 06/07/23 06/07/23 06/07/23 06/07/23 03:10 06:10 07:19 09:54 Temp 36.1 Pulse 74 Resp 18 B/P (MAP) 164/95 (118) 166/100 (122) 173/100 (124) 150/90 (110) Pulse Ox 98 O2 Delivery Room Air 06/07/23 00:00 Intake Total 600 ml Output Total 2800 ml Balance -2200 ml Capillary Refill : Less Than 3 Seconds Constitutional: AAO x 3, well-nourished HEENT: PERRL, hearing is well preserved, oral hygience is good Neck: No carotid bruit; carotid pulses are 2 + bilaterally Respiratory: No accessory muscle use, No respiratory distress; chest expansion is symmetric, chest is bilaterally symmetric, lungs clear to auscultation Cardiovascular: regular rate-rhythm; No JVD; S1 and S2 Gastrointestinal: No guarding; audible bowel sounds Extremities: no lower extremity edema bilateral Neurologic/Psychiatric: grossly intact (moves all extremities) Skin: No rash on exposed areas, No ulcerations on exposed areas Data Review Labs Laboratory Tests 06/07/23 13:25: Sodium Level 141, Potassium Level 4.1, Chloride Level 113H, Carbon Dioxide Level 19L, Anion Gap 9, Blood Urea Nitrogen 9, Creatinine 0.63, Estimat Glomerular Filtration Rate 117, BUN/Creatinine Ratio 14, Glucose Level 95, Calcium Level 8.4L, Corrected Calcium 9.2, Total Bilirubin 0.8, Aspartate Amino Transf (AST/SGOT) 48H, Alanine Aminotransferase (ALT/SGPT) 50, Alkaline Phosphatase 143H, Total Protein 5.7L, Albumin 3.0L Microbiology 06/04/23 MRSA Screen - Final, Complete MRSA not isolated Laboratory Tests 06/07/23 13:25 A/P-Cardiology Assessment/Admission Diagnosis Uncontrolled HTN persisting post delivery S/P delivery of twins at 37 weeks gestation on 06-04-23 Reported mild pre-eclempsia prior to delivery Discussion and Recomendations Uncontrolled HTN in period - change BB from Labateolol to Torprol XL 100mg BID - Echocardiogram to eval structure and function - EKG today CMP, UA and Mag level Plan of care discussed with patient and significant other Plan of care discussed with Dr. Payan Further recs will be based on her hospital course We would like to thank Dr. Harmon for this consult REDD WHITE Jun 07, 2023 14:04
[2023-06-07] MEDS: MAGNESIUM SULFATE DRIP 500 ML IV SCH ×2 (16:20→21:08)
[2023-06-07 16:46] LABS: CLARITY,URINE CLEAR; COLOR,URINE YELLOW; GLUCOSE, URINE (UA) NEGATIVE (NEGATIVE); KETONES,URINE NEGATIVE (NEGATIVE); NITRITE,URINE NEGATIVE (NEGATIVE); PH,URINE 8.5 (5-9); PROTEIN,URINE TRACE (NEGATIVE)
[2023-06-07 16:47] LABS: BACTERIA,URINE TRACE /HPF; BILIRUBIN,URINE NEGATIVE (NEGATIVE); LEUKOCYTE ESTERASE ,URINE NEGATIVE (NEGATIVE); SQUAMOUS EPITHELIAL CELL,UR >50 /HPF; WBC,URINE 0-2 /HPF
--- NOTE | 2023-06-07 17:45 | Consultation-Cardiology ---
HPI-Cardiology Cardiology Consultation: Date of Consultation 06/07/23 Time Seen by a Provider: 17:30 Date of Admission Attending Physician Jacinta Benjamin DO Admitting Physician Admitting Physician: Renny Harmon DO Attending Physician: Renny Harmon DO Consulting Physician ALVARO PAYAN MD, MA, FACP, FACC, FSCAI, CCDS Physician requesting consult: Dr Harmon HPI: Chief Complaint: Reason for Card consult: Uncontrolled HTN Ms. Kraft is a 38 yr old female who we are seeing in room 313 post scheduled c- section delivery of 37 week twins. She reports she had no difficulties with her until the last few weeks when she became increasingly hypertensive. She reports mod bilat LE swelling. No c/o CP, SOB, palpitations, syncope, near syncope. No c/o MEDINA, n/v/d. Review of Systems-Cardiology Review of Systems Constitutional: No chills, No fever, No malaise Eyes: No vision change Ears/Nose/Throat: No epistaxis, No recent hearing loss Respiratory: As described under HPI Cardiovascular: As described under HPI Gastrointestinal: no symptoms reported Genitourinary: No dysuria, No hematuria Expected Date of Delivery: [birth year], 2033 Musculoskeletal: no symptoms reported Skin: No rash on exposed areas, No ulcerations on exposed areas Psychiatric/Neurological: No seizure, No focal weakness, No syncope Hematologic: No bleeding abnormalities [id number] Hx Patient Social History Smoking Status: Never a Smoker Alcohol Use?: No Pt feels they are or have been: No Past Medical History PMH As described under Assessment. Family Medical History Family Medical History: She denies any family CAD, CVA, HTN or pre-mature SCD. She reports her parents do have DM. Allergies and Home Medications Allergies Coded Allergies: No Known Drug Allergies (Unverified , 05/28/23) Patient Home Medication List Home Medication List Reviewed: Yes Docusate Sodium (Docusate Sodium) 100 Mg Capsule, 100 MG PO BID PRN for CONSTIPATION-1ST LINE Prescribed by: RENNY HARMON on 06/04/23 1319 Ferrous Sulfate (Iron) 325 Mg (65 Mg Iron) Tablet, 325 MG PO DAILY, (Reported) Entered as Reported by: Doris Ramirez on 05/28/23 1004 Hydrocodone/Acetaminophen (Hydrocodone-Acetamin 5-325 mg) 5 Mg-325 Mg Tablet, 1- 2 EA PO Q6HR PRN for PAIN-MODERATE (5-7) Prescribed by: RENNY HARMON on 06/04/23 1320 Ibuprofen (Ibu) 600 Mg Tablet, 600 MG PO Q6H Prescribed by: RENNY HARMON on 06/04/23 1319 Labetalol HCl (Labetalol HCl) 200 Mg Tablet, 200 MG PO BID Prescribed by: RENNY HARMON on 06/04/23 1322 Pnv 119/Iron Fum/Folic Acid ( 19 Tablet) 29 Mg Iron-1 Mg Tablet, 1 EACH PO DAILY, (Reported) Entered as Reported by: Doris Ramirez on 05/28/23 1004 Physical Exam-Cardiology Physical Exam Vital Signs/I&O 06/07/23 06/07/23 06/07/23 06/07/23 06:10 07:19 09:54 11:10 Temp 36.1 Pulse 74 Resp 18 B/P (MAP) 166/100 (122) 173/100 (124) 150/90 (110) 179/95 (123) Pulse Ox 98 O2 Delivery Room Air 06/07/23 06/07/23 06/07/23 06/07/23 12:00 13:30 14:45 16:30 Temp 36.4 36.4 Pulse 68 80 Resp 18 18 B/P (MAP) 181/94 (123) 165/88 (113) 159/79 (105) 176/86 (116) Pulse Ox 99 98 O2 Delivery Room Air Room Air 06/07/23 00:00 Intake Total 600 ml Output Total 2800 ml Balance -2200 ml Capillary Refill : Less Than 3 Seconds Constitutional: AAO x 3, well-nourished HEENT: PERRL, hearing is well preserved, oral hygience is good Neck: No carotid bruit; carotid pulses are 2 + bilaterally Respiratory: No accessory muscle use, No respiratory distress; chest expansion is symmetric, chest is bilaterally symmetric, lungs clear to auscultation Cardiovascular: regular rate-rhythm; No JVD; S1 and S2 Gastrointestinal: No guarding; audible bowel sounds Extremities: no lower extremity edema bilateral Neurologic/Psychiatric: grossly intact (moves all extremities) Skin: No rash on exposed areas, No ulcerations on exposed areas Data Review Labs Laboratory Tests 06/07/23 13:25: Sodium Level 141, Potassium Level 4.1, Chloride Level 113H, Carbon Dioxide Level 19L, Anion Gap 9, Blood Urea Nitrogen 9, Creatinine 0.63, Estimat Glomerular Filtration Rate 117, BUN/Creatinine Ratio 14, Glucose Level 95, Calcium Level 8.4L, Corrected Calcium 9.2, Magnesium Level 2.0, Total Bilirubin 0.8, Aspartate Amino Transf (AST/SGOT) 48H, Alanine Aminotransferase (ALT/SGPT) 50, Alkaline Phosphatase 143H, Total Protein 5.7L, Albumin 3.0L 06/07/23 16:04: Urine Color YELLOW, Urine Clarity CLEAR, Urine pH 8.5, Urine Specific [place] 1.020, Urine Protein TRACEH, Urine Glucose (UA) NEGATIVE, Urine Ketones NEGATIVE, Urine Nitrite NEGATIVE, Urine Bilirubin NEGATIVE, Urine Urobilinogen 1.0, Urine Leukocyte Esterase NEGATIVE, Urine RBC (Auto) 2+H, Urine RBC 10-25H, Urine WBC 0-2, Urine Squamous Epithelial Cells >50H, Urine Crystals NONE, Urine Bacteria TRACE, Urine Casts NONE, Urine Mucus SMALLH, Urine Culture Indicated NO Microbiology 06/04/23 MRSA Screen - Final, Complete MRSA not isolated Laboratory Tests 06/07/23 13:25 A/P-Cardiology Assessment/Admission Diagnosis Uncontrolled HTN persisting post delivery - ECG on 06/07/23: NSR, WNL - Echo on 06/07/23: LVEF 65-70%, normal chamber sizes, PASP 30-35 mmHg - Labs: no evidence or liver or renal failure S/P delivery of twins at 37 weeks gestation on 06-04-23 Reported mild pre-eclempsia prior to delivery Discussion and Recomendations Uncontrolled HTN in period - change BB from labetolol to Toprol XL 100mg BID - doxazosin prn Echo, ECG, and labs ordered and reviewed Plan of care discussed with patient and significant other Plan of care discussed with Dr. Payan Further recs will be based on her hospital course We would like to thank Dr. Harmon for this consult ALVARO PAYAN MD FACP FAC CCDS Jun 07, 2023 17:45
[2023-06-08] VITALS (7 sets, daily range): BP systolic 154–178; BP diastolic 93–101
[2023-06-08] MEDS: IBUPROFEN 600 MG TABLET PO SCH ×2 (01:00→06:30)
[2023-06-08] MEDS ORDERED: PETROLATUM JELLY 30 GM TUBE ONE (06:09)
[2023-06-08] MEDS: amLODIPine 10 MG TABLET PO SCH (08:05)
[2023-06-08] MEDS: DOCUSATE SODIUM 100 MG CAPSULE PO SCH ×2 (08:05→20:41)
[2023-06-08] MEDS: SERTRALINE 50 MG TABLET PO SCH (08:06)
--- NOTE | 2023-06-08 09:18 | Postpartum Progress Note ---
Post Op Post-operative Day #4 Subjective: Patient is without complaints. She denies MEDINA vision changes n/v epigastric pain SOA, CP. BP still elevated Cardiology is consulted. EKG and ECHO nml on Toprol XL 1100mg bid and doxazosin prn Objective: BP 160/101 Physical Exam: General - Alert and oriented, no apparent distress HRRR LCTAB Breasts no erythema or engorgement Abdomen - Soft, appropriately tender to palpation, non-distended, fundus firm at umbilicus Incision - clean, dry and intact; no erythema or induration, no drainage Lochia minimal Extremities - no edema, negative Blaine's bilaterally Assessment: [] post-operative day # 4 status post LTCS HTN- Cardiology consulted. Recovering well, hemodynamically stable Plan: Routine post-operative care. Encourage breast feeding. continue Toprol/ Doxazosin Will d/w Cardiology regarding discharge planning. Ferrous sulfate supplementation. Vitals - Labs Vital Signs - I&O Vital Signs Date Time Temp Pulse Resp B/P (MAP) Pulse Ox O2 Delivery O2 Flow Rate FiO2 06/08/23 06:23 36.3 74 18 160/101 (120) 98 Room Air 06/08/23 02:25 36.3 87 18 163/95 (117) 98 Room Air 06/08/23 01:00 36.3 82 18 168/93 (118) 98 Room Air 06/07/23 19:55 36.2 82 18 153/92 (112) 98 Room Air 06/07/23 18:30 171/93 (119) 06/07/23 16:30 36.4 80 18 176/86 (116) 98 Room Air 06/07/23 14:45 36.4 68 18 159/79 (105) 99 Room Air 06/07/23 13:30 165/88 (113) 06/07/23 12:00 181/94 (123) 06/07/23 11:10 179/95 (123) 06/07/23 09:54 150/90 (110) I & O 06/08/23 07:00 Intake Total 400 ml Output Total 925 ml Balance -525 ml Labs Laboratory Tests 06/07/23 13:25: Sodium Level 141, Potassium Level 4.1, Chloride Level 113H, Carbon Dioxide Level 19L, Anion Gap 9, Blood Urea Nitrogen 9, Creatinine 0.63, Estimat Glomerular Filtration Rate 117, BUN/Creatinine Ratio 14, Glucose Level 95, Calcium Level 8.4L, Corrected Calcium 9.2, Magnesium Level 2.0, Total Bilirubin 0.8, Aspartate Amino Transf (AST/SGOT) 48H, Alanine Aminotransferase (ALT/SGPT) 50, Alkaline Phosphatase 143H, Total Protein 5.7L, Albumin 3.0L 06/07/23 16:04: Urine Color YELLOW, Urine Clarity CLEAR, Urine pH 8.5, Urine Specific [place] 1.020, Urine Protein TRACEH, Urine Glucose (UA) NEGATIVE, Urine Ketones NEGATIVE, Urine Nitrite NEGATIVE, Urine Bilirubin NEGATIVE, Urine Urobilinogen 1.0, Urine Leukocyte Esterase NEGATIVE, Urine RBC (Auto) 2+H, Urine RBC 10-25H, Urine WBC 0-2, Urine Squamous Epithelial Cells >50H, Urine Crystals NONE, Urine Bacteria TRACE, Urine Casts NONE, Urine Mucus SMALLH, Urine Culture Indicated NO Microbiology 06/04/23 MRSA Screen - Final, Complete MRSA not isolated PADMINI NGUYEN DO Jun 08, 2023 09:18
--- NOTE | 2023-06-08 15:59 | Progress Note - Cardiology ---
Cardiology SOAP Progress Note Subjective: No cp or palp or syncope or shortness of breath No n/v/d No focal weakness No swelling Objective: I&O/Vital Signs 06/08/23 06/08/23 06/08/23 06:23 10:30 12:30 Temp 36.3 36.6 36.4 Pulse 74 74 85 Resp 18 18 18 B/P (MAP) 160/101 (120) 154/99 (117) 174/96 (122) Pulse Ox 98 98 98 O2 Delivery Room Air Room Air Room Air 06/07/23 23:59 Output Total 925 ml Balance -925 ml Constitutional: AAO x 3, well-nourished Respiratory: No accessory muscle use, No respiratory distress; chest expansion is symmetric, chest is bilaterally symmetric, lungs clear to auscultation Cardiovascular: regular rate-rhythm; No JVD; S1 and S2 Gastrointestional: No guarding; audible bowel sounds Extremities: no lower extremity edema bilateral Neurologic/Psychiatric: grossly intact (moves all extremities) Skin: No rash on exposed areas, No ulcerations on exposed areas Results/Procedures: Labs Laboratory Tests 06/07/23 16:04: Urine Color YELLOW, Urine Clarity CLEAR, Urine pH 8.5, Urine Specific [place] 1.020, Urine Protein TRACEH, Urine Glucose (UA) NEGATIVE, Urine Ketones NEGATIV E, Urine Nitrite NEGATIVE, Urine Bilirubin NEGATIVE, Urine Urobilinogen 1.0, Urine Leukocyte Esterase NEGATIVE, Urine RBC (Auto) 2+H, Urine RBC 10-25H, Urine WBC 0-2, Urine Squamous Epithelial Cells >50H, Urine Crystals NONE, Urine Bacte deandre TRACE, Urine Casts NONE, Urine Mucus SMALLH, Urine Culture Indicated NO Microbiology 06/04/23 MRSA Screen - Final, Complete MRSA not isolated Laboratory Tests 06/07/23 13:25 A/P: Assessment: Uncontrolled HTN persisting post delivery - ECG on 06/07/23: NSR, WNL - Echo on 06/07/23: LVEF 65-70%, normal chamber sizes, PASP 30-35 mmHg - Labs: no evidence or liver or renal failure S/P delivery of twins at 37 weeks gestation on 06-04-23 Reported mild pre-eclempsia prior to delivery Plan: * Continue amlodipine 10 mg daily * Increase Toprol XL to 200 q am and 100 q pm * Doxazosin 2 mg q 6 prn * Discussed with ALVARO Guardado MD FACP FAC CCDS Jun 08, 2023 15:59
[2023-06-09] VITALS (8 sets, daily range): BP systolic 142–183; BP diastolic 90–107
[2023-06-09] MEDS: LABETALOL 5 mg/ml 4 ML SINGLE DOSE SYRINGE IV PRN ×2 (03:01→09:46)
[2023-06-09] MEDS: CATHETER FLUSH 10 ML SYR IV SCH (03:05)
--- NOTE | 2023-06-09 07:45 | Postpartum Progress Note ---
Post Op Post-operative Day #5 Subjective: Patient is without complaints. States that breast-feeding is going well. Her pain is well controlled. Patient would like to go home. Blood pressures have been elevated throughout the night. Blood pressures have ranged 799180/74111. Patient received metoprolol, amlodipine, doxazosin and labetalol. She denies any headaches, vision changes, nausea or vomiting, epigastric pain. Objective: Physical Exam: General - Alert and oriented, no apparent distress Breast symmetrical no erythema or edema or engorgement Abdomen - Soft, appropriately tender to palpation, non-distended, fundus firm at umbilicus Incision - clean, dry and intact; no erythema or induration, no drainage Lochia minimal Extremities - no edema, negative Blaine's bilaterally Assessment: [] post-operative day # 5, status post Primary LTCS hypertension on metoprolol, amlodipine and doxazosin. Recovering well, hemodynamically stable Plan: Routine post-operative care. Cardiology consulted Encourage breast feeding. Encourage ambulation. VTE prophylaxis: SCDs. Ferrous sulfate supplementation. Plan for discharge [] Vitals - Labs Vital Signs - I&O Vital Signs Date Time Temp Pulse Resp B/P (MAP) Pulse Ox O2 Delivery O2 Flow Rate FiO2 06/09/23 05:05 181/93 (122) 06/09/23 04:32 77 172/90 (117) 06/09/23 03:10 87 180/105 (130) 06/09/23 00:03 36.4 78 18 170/94 (119) 98 Room Air 06/08/23 20:39 36.8 84 20 164/95 (118) 97 Room Air 06/08/23 16:30 36.7 79 18 178/96 (123) 98 Room Air 06/08/23 12:30 36.4 85 18 174/96 (122) 98 Room Air 06/08/23 10:30 36.6 74 18 154/99 (117) 98 Room Air Labs Microbiology 06/04/23 MRSA Screen - Final, Complete MRSA not isolated PADMINI NGUYEN DO Jun 09, 2023 07:45
[2023-06-09] MEDS: DOCUSATE SODIUM 100 MG CAPSULE PO SCH (09:25)
[2023-06-09] MEDS: amLODIPine 10 MG TABLET PO SCH (09:28)
[2023-06-09] MEDS: SERTRALINE 50 MG TABLET PO SCH (09:28)
[2023-06-09] MEDS ORDERED: MTP100TCR PO (10:55)
[2023-06-09] MEDS ORDERED: DOXA4TAB2 PO (10:55)
[2023-06-09] MEDS ORDERED: AMLO-251 PO (10:55)
[2023-06-09] MEDS ORDERED: METO200T48 PO (10:55)
--- NOTE | 2023-06-09 10:57 | Discharge Inst-Cardiology ---
Discharge Inst-Cardiac Discharge Medications New Medications: Amlodipine Besylate (Amlodipine Besylate) 10 Mg Tablet 10 MG PO Take every morning for 30 Days, #30 TAB 3 Refills Doxazosin Mesylate (Doxazosin Mesylate) 4 Mg Tablet 4 MG PO take every evening for 30 Days, #30 TAB 3 Refills Metoprolol Succinate (Metoprolol Succinate) 100 Mg Tab.er.24h 100 MG PO Take every evening for 30 Days, #30 TAB 3 Refills Metoprolol Succinate (Metoprolol Succinate) 200 Mg Tab.er.24h 200 MG PO Take every morning for 30 Days, #30 TAB 3 Refills Docusate Sodium (Docusate Sodium) 100 Mg Capsule 100 MG PO BID PRN for CONSTIPATION-1ST LINE, #60 CAP Hydrocodone/Acetaminophen (Hydrocodone-Acetamin 5-325 mg) 5 Mg-325 Mg Tablet 1-2 EA PO Q6HR PRN for PAIN-MODERATE (5-7), #30 TAB Continued Medications: Ferrous Sulfate (Iron) 325 Mg (65 Mg Iron) Tablet 325 MG PO DAILY, TAB Pnv 119/Iron Fum/Folic Acid ( 19 Tablet) 29 Mg Iron-1 Mg Tablet 1 EACH PO DAILY, TAB Patient Instructions Patient Instructions: F/u with Dr Payan on 06/13/23 Activity & Diet Discharge Diet: No Restrictions ALVARO PAYAN MD FACP FAC CCDS Jun 09, 2023 10:57
--- NOTE | 2023-06-09 11:04 | Progress Note - Cardiology ---
Cardiology SOAP Progress Note Subjective: No cp or palp or syncope No shortness of breath No swelling No n/v/d No focal weakness No gen weakness No fever or chills No headache or visual problems Wishes to go home. Does not wish to stay in the hospital any longer. Objective: I&O/Vital Signs 06/09/23 06/09/23 06/09/23 06/09/23 00:03 03:10 04:32 05:05 Temp 36.4 Pulse 78 87 77 Resp 18 B/P (MAP) 170/94 (119) 180/105 (130) 172/90 (117) 181/93 (122) Pulse Ox 98 O2 Delivery Room Air Constitutional: AAO x 3, well-nourished Respiratory: No accessory muscle use, No respiratory distress; chest expansion is symmetric, chest is bilaterally symmetric, lungs clear to auscultation Cardiovascular: regular rate-rhythm; No JVD; S1 and S2 Gastrointestional: No guarding; audible bowel sounds Extremities: no lower extremity edema bilateral Neurologic/Psychiatric: oriented x 3, other (moves all limbs equally) Skin: No rash on exposed areas, No ulcerations on exposed areas Results/Procedures: Labs Microbiology 06/04/23 MRSA Screen - Final, Complete MRSA not isolated A/P: Assessment: HTN persisting post delivery - ECG on 06/07/23: NSR, WNL - Echo on 06/07/23: LVEF 65-70%, normal chamber sizes, PASP 30-35 mmHg - Labs: no evidence or liver or renal failure S/P delivery of twins at 37 weeks gestation on 06-04-23 Reported mild pre-eclempsia prior to delivery Plan: * BP remains high, but she wishes to go home and feels that bp will be much better in her home environment. Here she feels exhausted, has not been able to rest, has been sleep deprived, and feels frustrated. Thus, it appears reasonable to discharge. There is no evidence of any end organ involvement. We have advised to report to the ER if any symptoms or concerns. She understands * Continue amlodipine 10 mg daily * Continue Toprol XL to 200 q am and 100 q pm * Change doxazosin to 4 mg po q pm * Discussed with ALVARO Guardado MD FACP FAC CCDS Jun 09, 2023 11:04
== END 2023-06-09 12:45 | disposition home or self-care (01) | DRG 787 ==
LOC: LDRP 10:35
PROVIDERS: ADMIT Obstetrics & Gynecology; ATTEND Obstetrics & Gynecology
PROC: 10D00Z1 Extraction of Products of Conception, Low, Open Approach (ICD-10-PCS; principal; 2023-06-04 12:13)
DX: O30.043 Twin pregnancy, dichorionic/diamniotic, third trimester (principal); D62 Acute posthemorrhagic anemia; Z3A.37 37 weeks gestation of pregnancy; Z37.2 Twins, both liveborn; O14.04 Mild to moderate pre-eclampsia, complicating childbirth; O32.1XX0 Maternal care for breech presentation, not applicable or unspecified; O16.5 Unspecified maternal hypertension, complicating the puerperium; O90.81 Anemia of the puerperium
CPT/HCPCS: 36415; 80053; 81000; 83735; 85025; 86850; 86900; 86901; 87081; 93005; 93306; 94664